=== PATIENT | female | born 1950 | race Caucasian/White ===

== ENCOUNTER → 2021-05-25 10:02 | Outpatient (BNVA) | payer MEDICARE, SELFPAY | PROVIDERS: Visit Provider Family Medicine | DX: N18.9 Chronic kidney disease, unspecified (principal); E78.5 Hyperlipidemia, unspecified; E55.9 Vitamin D deficiency, unspecified; R73.9 Hyperglycemia, unspecified | CPT/HCPCS: 80053; 80061; 82043; 82306; 83036; 85025 ==

== ENCOUNTER → 2021-11-09 11:01 | Outpatient (BNVA) | payer MEDICARE, SELFPAY | PROVIDERS: PCP Family Medicine; Referring Provider Family Medicine; Visit Provider Surgery | DX: Z86.010 Personal history of colon polyps (principal); F17.210 Nicotine dependence, cigarettes, uncomplicated | CPT/HCPCS: 99204 ==

== ENCOUNTER 2021-12-16 09:01 | Day surgery (SDC) | payer MEDICARE, SELFPAY ==
[2021-12-15 08:45] VITALS: BMI 34.7
--- NOTE | 2021-12-16 09:29 | P.HP_ITS ---
Same Day Surgery H&P Indication for Procedure/HPI DATE OF PROCEDURE: December 16, 2021 CHIEF COMPLAINT/INDICATIONFOR SURGICAL PROCEDURE: colonoscopy PREOP DIAGNOSIS: diagnostic PLANNED PROCEDURE: Operation Date: 12/16/21 10:45 Proposed Procedures p Colonoscopy 08293/z86.010(Not Applicable) - Kirt Garcia MD Medications/Allergies* Allergies/Adverse Reactions Allergy/AdvReac Type Severity Reaction Status Date / Time Sulfa (Sulfonamide Allergy ADR-Dizzine Verified 12/16/21 09:27 Antibiotics) ss Pertinent History/Comorbid Conditions* Medical History (Updated 12/14/21 @ 10:29 by Maureen Eric DO) Arthritis B/L knees, left ankle Chronic kidney disease Depression with anxiety Dyslipidemia Hyperglycemia Open left ankle fracture SOLIS (obstructive sleep apnea) Surgical History (Updated 11/09/21 @ 11:16 by Kirt Garcia MD) H/O hand surgery Right History of arthroplasty of left ankle History of colonoscopy Family History (Updated 05/25/21 @ 09:16 by Ayana Ellis LPN) Father Mother Diabetes Mother Cancer Father unknown type of cancer Social History Smoking and tobacco status: current every day smoker Second hand smoke exposure: Yes Alcohol intake: never Adopted: No Caregiver/support person: Yes Lives independently: Yes Household members: family Housing: Manufactured/Mobile home Marital status: / Number of children: 0 Highest education level completed: High School Graduate service: Yes status: Retired branch: [employer] Current occupational status: retired Pets and animals: No History of recent travel: Yes (from [place]) Out of state: Yes Sexually active: No Current gender identity: Female Special isaac needs: No Pertinent Exam Findings alert, oriented x 3 and regular rate & rhythm Recommendations Surgery/Procedure today Coding Level of Care Code Acute Customer Care Specialist for Melissa Rao
[2021-12-16 09:30] VITALS: BP 127/83; PULSE 83; RESP 18; TEMP 36.1; O2SAT 96
[2021-12-16] MEDS: sodium chloride 0.9% 1,000 ML 30 ML IV (09:38)
--- NOTE | 2021-12-16 10:13 | P.ANESASSM_ITS ---
Pre-Anesthetic Assessment Height/Weight: Height 1.68 m Weight 97.522 kg Temp Pulse Resp BP Pulse Ox 97.0 F L 83 18 127/83 96 12/16/21 09:30 12/16/21 09:30 12/16/21 09:30 12/16/21 09:30 12/16/21 09:30 Preop Diagnosis: diagnostic Operation Date: 12/16/21 10:45 Proposed Procedures p Colonoscopy 99353/z86.010(Not Applicable) - Kirt Garcia MD Familial anesthetic complications: none Was Beta Ming taken within 24 hours: N/A Was Clonidine taken within 24 hours: N/A Last intake: Intake Last Liquid Date 12/15/21 Last Liquid Time 18:30 Last Solid Date 12/14/21 Last Solid Time 17:30 Social Tobacco and No alcohol Exam alert, oriented x 3, clear to auscultation bilaterally and regular rate & rhythm Airway Submandibular: within normal limits Cervical ROM: within normal limits Mallampati: Class II Dentition: false Pulmonary Sleep Apnea Denies COPD Walks up hills and downhills 30 minutes a day, every day but Tuesday CV/HEM None reported Chronic Renal Insufficiency and None reported Hepatic None reported GI None reported Metabolic None reported Musc/skel None reported Neuropsych Anxiety and Depression Anesthetic Plan ASA status: 3 (71 year old female daily smoker with SOLIS, CKD, obesity, and SOLIS. ) Anesthesia: Anesthesia Evaluation, General and MAC Other: I discussed with the patient risks, goals, and benefits of MAC and general anesthesia. We discussed spectrum of MAC anesthesia including conversion to general as well as possibility of recall of intraoperative stimuli including discomfort/pain. Patient agrees to proceed with MAC. Risk of > 500 ml blood loss (7ml/kg in children): No Medications/Allergies Home Medications Medication Instructions Recorded Confirmed Last Taken Type atorvastatin 10 mg tablet 10 mg PO DAILY #90 tab 07/06/21 12/16/21 12/15/21 Rx cholecalciferol (vitamin D3) 125 125 mcg PO DAILY #90 cap 07/06/21 12/16/21 12/16/21 Rx mcg (5,000 unit) capsule citalopram 40 mg tablet 40 mg PO DAILY #90 tab 10/05/21 12/16/21 12/16/21 Rx clonazepam 1 mg tablet 1 mg PO TID PRN #90 tab 03/12/16/21 12/16/21 Rx ketoconazole 2 % shampoo 1 applic TOPICAL .every three days 10/05/21 12/16/21 12/15/21 Rx #120 ml peg 3350-electrolytes 236 240 ml PO Q10M #4000 ml 11/19/21 12/16/21 12/15/21 Rx gram-22.74 gram-6.74 gram-5.86 gram solution (Golytely) brexpiprazole 1 mg tablet (Rexulti) 1 mg PO DAILY #30 tab 12/14/21 12/16/21 12/16/21 Rx doxepin 50 mg capsule See Rx Instructions .ROUTE 12/15/21 12/16/21 12/15/21 Rx .COMPLEX #90 cap Allergies Allergy/AdvReac Type Severity Reaction Status Date / Time Sulfa (Sulfonamide Allergy ADR-Dizzine Verified 12/16/21 09:27 Antibiotics) ss Current Medications Generic Name Dose Route Start Last Admin Trade Name Freq PRN Reason Stop Dose Admin Sodium Chloride 1,000 mls @ 30 mls/hr 12/16/21 09:15 12/16/21 09:38 Sodium Chloride 0.9% IV 12/17/21 09:14 30 mls/hr .Q24H EDILIA Administration PFSH Anesthesia Medical History Arthritis B/L knees, left ankle Chronic kidney disease Depression with anxiety Dyslipidemia Hyperglycemia Open left ankle fracture SOLIS (obstructive sleep apnea) Surgical History H/O hand surgery Right History of arthroplasty of left ankle History of colonoscopy Family History Mother Diabetes Father Cancer unknown type of cancer Social History Smoking and tobacco status: current every day smoker Second hand smoke exposure: Yes Alcohol intake: never Adopted: No Caregiver/support person: Yes Lives independently: Yes Household members: family Housing: Manufactured/Mobile home Marital status: / Number of children: 0 Highest education level completed: High School Graduate service: Yes status: Retired branch: [employer] Current occupational status: retired Pets and animals: No History of recent travel: Yes (from [place]) Out of state: Yes Sexually active: No Current gender identity: Female Special isaac needs: No Data Anesthesia Cardiac Studies: No Data to Display
[2021-12-16 11:15] VITALS: BP 154/73; PULSE 65; RESP 16; TEMP 36.5; O2SAT 100
[2021-12-16 11:26] VITALS: BP 125/76; PULSE 64; RESP 17; TEMP 36.2; O2SAT 97
--- NOTE | 2021-12-16 14:23 | ANE.PACU2 ---
Inpatient post-anesthesia follow up: Airway intact: Yes Vital signs: Temperature 97.2 F Pulse Rate 64 Respiratory Rate 17 Blood Pressure 125/76 Pulse Oximetry 97 Oxygen Delivery Me thod Room Air Oxygen Flow Rate Fraction of Inspir ed Oxygen Hydration adequate: Yes Nausea and vomiting: No Pain level: 1 Mental status: Baseline
== END 2021-12-16 11:52 | disposition home or self-care (01) ==
PROVIDERS: PCP Family Medicine; Visit Provider Surgery
PROC: 0DJD8ZZ Inspection of Lower Intestinal Tract, Via Natural or Artificial Opening Endoscopic (ICD-10-PCS; CPT 45378; principal; 2021-12-16 10:45)
DX: Z86.010 Personal history of colon polyps (principal); M17.0 Bilateral primary osteoarthritis of knee; M19.072 Primary osteoarthritis, left ankle and foot; F41.8 Other specified anxiety disorders; E78.5 Hyperlipidemia, unspecified; G47.33 Obstructive sleep apnea (adult) (pediatric); N18.9 Chronic kidney disease, unspecified; F17.200 Nicotine dependence, unspecified, uncomplicated; K64.8 Other hemorrhoids
CPT/HCPCS: 45378; J2704; J7030

== ENCOUNTER → 2022-01-11 11:25 | Outpatient (BNVA) | payer MEDICAID, SELFPAY | PROVIDERS: PCP Family Medicine; Visit Provider Family Medicine | DX: N18.32 Chronic kidney disease, stage 3b (principal); F41.8 Other specified anxiety disorders; M17.0 Bilateral primary osteoarthritis of knee | CPT/HCPCS: 80048 ==

== ENCOUNTER 2022-03-06 14:00 | Emergency (ER) | payer MEDICARE, MEDICAID, SELFPAY ==
--- NOTE | 2022-03-06 14:07 | CTR_ITS ---
PROCEDURE INFORMATION: Exam: CT Abdomen And Pelvis Without Contrast Exam date and time: 03/06/2022 2:32 PM Age: 71 years old Clinical indication: Abdominal pain; Epigastric; Additional info: Epigastric abd pain TECHNIQUE: Imaging protocol: Computed tomography of the abdomen and pelvis without contrast. Radiation optimization: All CT scans at this facility use at least one of these dose optimization techniques: automated exposure control; mA and/or kV adjustment per patient size (includes targeted exams where dose is matched to clinical indication); or iterative reconstruction. COMPARISON: No relevant prior studies available. RADIATION DOSE METRICS: Total DLP (mGy-cm): 890.03 FINDINGS: Detailed evaluation of the abdominal and pelvic viscera is somewhat limited in the absence of intravenous contrast. Inferior thorax: Interstitial prominence and dependent airspace disease. Hiatal hernia. Liver: No focal hepatic mass. Gallbladder and bile ducts: Stone filled gallbladder. Pancreas: Mild soft tissue fullness of the pancreatic head, without focal mass. Postcontrast CT or ultrasound would be recommended for improved characterization. Spleen: Splenic granulomata. Adrenal glands: Unremarkable adrenals. Kidneys and ureters: Bilateral renal cysts, including a 3.8 cm left renal cyst. No hydronephrosis. Stomach and bowel: Fluid-filled stomach. Mild small bowel dilatation without a focal transition zone. Diverticula, without pericolonic inflammation. Appendix: No acute appendicitis. Intraperitoneal space: No significant free fluid. Vasculature: Ectasia of the abdominal aorta and vascular calcification. Lymph nodes: Subcentimeter lymph nodes. Urinary bladder: Normal bladder morphology. Minimal anterior wall thickening. Reproductive: 1.8 cm anterior wall uterine fibroid, which can be better evaluated with ultrasound if clinically indicated. Bones/joints: Schmorl's nodes and vertebral endplate irregularity. Grade 1 anterolisthesis of L4 on L5. Osteopenia and degenerative change. Soft tissues: Small fat containing umbilical hernia. CT/CT abdomen pelvis wo con [id number] IMPRESSION: 1. Stone filled gallbladder. 2. Mild soft tissue fullness of the pancreatic head, without focal mass. Postcontrast CT or ultrasound would be recommended for improved characterization. 3. Additional findings as described above. COMMENTS: Consistent with the [place] [employer]'s Incidental Findings Committee white paper (J Am Paola Radiol 2018): Any incidental renal lesion less than 1 cm or classified as too small to characterize, or any incidental cystic renal lesion characterized as simple-appearing, is likely benign. No follow-up imaging is recommended for these lesions per consensus recommendations based on imaging criteria.
--- NOTE | 2022-03-06 14:08 | ED_ITS ---
HPI - Abdominal Pain General: Chief Complaint: Abdominal Pain Stated Complaint: ABD PAIN Time Seen by Provider: 03/06/22 14:04 Source: patient and EMS Mode of arrival: EMS Limitations: no limitations History of Present Illness: 71-year-old female states she been having abdominal pain over the last week. States pain is been sharp in nature epigastric in region. States it seems to be worse with eating denies any history of any abdominal issues has never had any abdominal surgeries. States pain is currently a 4 out of 10 denies any diarrhea denies any cough. She denies any fever. Associated Symptoms: Denies chills, dysuria and fever(s) Review of Systems Const: Denies: fever(s), chills, body aches or change in appetite Eyes: Denies: blurry vision or eye discomfort ENMT: Denies: throat pain or dental pain Card: Denies: chest pain Resp: Denies: dyspnea GI: Reports: abdominal pain : Denies: dysuria Musc: Denies: neck pain or back pain Skin/Breast: Denies: rash Neuro: Denies: headache(s) Psych: Denies: depression Jovon/Lymph: Denies: easy bruising All/Imm: Denies: urticaria PFSH ED PFSH: Medical History Arthritis B/L knees, left ankle Chronic kidney disease Depression with anxiety Dyslipidemia Hyperglycemia Open left ankle fracture SOLIS (obstructive sleep apnea) Surgical History H/O hand surgery Right History of arthroplasty of left ankle History of colonoscopy (12/16/21) Family History Mother Diabetes Father Cancer unknown type of cancer Social History Smoking and tobacco status: current every day smoker Second hand smoke exposure: Yes Alcohol intake: never Adopted: No Caregiver/support person: Yes Lives independently: Yes Household members: family Housing: Manufactured/Mobile home Marital status: / Number of children: 0 Highest education level completed: High School Graduate service: Yes status: Retired branch: [employer] Current occupational status: retired Pets and animals: No History of recent travel: Yes (from [place]) Out of state: Yes Sexually active: No Current gender identity: Female Special isaac needs: No Physical Exam Const: COMMON NORMALS: no acute distress, patient oriented x3 and healthy appearing HENMT: COMMON NORMALS: normocephalic and atraumatic HEAD & SCALP: normocephalic and atraumatic Eye: COMMON NORMALS: Equal, round and reactive pupils present and EOMs intact bilaterally PUPIL: Yes Equal, round and reactive pupils present Neck/C-Spine: COMMON NORMALS: full ROM and supple Chest: COMMONS NORMALS: normal inspection of the chest and normal palpation of entire chest wall Resp: COMMON NORMALS: normal respiratory effort, No retractions, No use of accessory muscles and clear to auscultation bilaterally AUSCULTATION: clear to auscultation bilaterally Cardio: COMMON NORMALS: regular rate, regular rhythm and No murmurs present (Cardio) RATE: regular rate RHYTHM: regular rhythm GI: COMMON NORMALS: Normal to inspection, nondistended, normoactive bowel sounds present, Soft to palpation and no masses PALPATION: Yes Soft to palpation OTHER: epigastric tenderness Extremity: COMMON NORMALS: normal to inspection and full ROM Neuro: COMMON NORMALS: patient oriented x3, moves all extremities and no focal motor deficits Psych: COMMON NORMALS: mental status grossly normal, Normal thought process present and cooperative THOUGHT PROCESS: Normal thought process present Skin: COMMON NORMALS: no rashes or lesions noted and no wounds GENERAL SKIN EXAM: no rashes or lesions noted Course Vital Signs: Vital signs: Vital Signs Temperature 98.5 F 03/06/22 14:12 Pulse Rate 60 03/06/22 15:14 Respiratory Rate 16 03/06/22 15:14 Blood Pressure 166/75 03/06/22 15:14 Pulse Oximetry 96 03/06/22 15:14 Oxygen Delivery Me thod 03/06/22 15:14 MDM - Abdominal Pain Medical Decision Making Patient presents with abdominal pain likely biliary colic CT does show gallstones she has no signs of cholecystitis her pain is much improved here we will get her follow-up with surgeon for further evaluation of the gallstones I did inform her of the CT findings of her pancreas as well we will have her follow-up with her primary care doctor for further imaging she is stable here lab works normal she is return if worsening she understands agrees to plan. Lab Data : 03/06/22 14:27 03/06/22 14:27 Labs/Radiology: Radiology Impressions Abdomen/Pelvis CT 03/06/22 14:07 IMPRESSION: 1. Stone filled gallbladder. 2. Mild soft tissue fullness of the pancreatic head, without focal mass. Postcontrast CT or ultrasound would be recommended for improved characterization. 3. Additional findings as described above. COMMENTS: Consistent with the [place] [employer]'s Incidental Findings Committee white paper (J Am Paola Radiol 2018): Any incidental renal lesion less than 1 cm or classified as too small to characterize, or any incidental cystic renal lesion characterized as simple-appearing, is likely benign. No follow-up imaging is recommended for these lesions per consensus recommendations based on imaging criteria. Laboratory Results WBC 8.2 10^3/uL (4.0-10.0) 03/06/22 14:27 RBC 4.47 10^6/uL (4.1-5.3) 03/06/22 14:27 Hgb 13.6 g/dL (11.5-15.3) 03/06/22 14:27 Hct 41.7 % (37.0-47.0) 03/06/22 14:27 MCV 93.3 fl (81-99) 03/06/22 14:27 MCH 30.4 pg (28.0-34.0) 03/06/22 14:27 MCHC 32.6 g/dL (30.0-36.0) 03/06/22 14: RDW 12.7 % (12.1-15.1) 03/06/22 14:27 Plt Count 264 10^3/cmm (130-400) 03/06/22 14:27 MPV 9.9 fL (7.4-10.4) 03/06/22 14:27 Neut % (Auto) 48.7 % 03/06/22 14: Lymph % (Auto) 41.1 % 03/06/22 14:27 [place] % (Auto) 6.4 % 03/06/22 14:27 Eos % (Auto) 2.7 % 03/06/22 14:27 Baso % (Auto) 0.9 % 03/06/22 14:27 Neut # (Auto) 3.98 10^3/uL (1.8-7.7) 03/06/22 14:27 Lymph # (Auto) 3.4 10^3/uL (0.8-4.8) 03/06/22 14:27 [place] # (Auto) 0.5 10^3/uL (0.2-0.9) 03/06/22 14:27 Eos # (Auto) 0.2 10^3/uL (0.0-0.8) 03/06/22 14:27 Baso # (Auto) 0.1 10^3/uL (0.0-0.1) 03/06/22 14:27 Nucleated RBC % (auto) 0 % 03/06/22 14: Nucleated RBCs # 0.0 /100WBC 03/06/22 14:27 Sodium 139 mmol/L (136-145) 03/06/22 14:27 Potassium 4.0 mmol/L (3.5-5.1) 03/06/22 14:27 Chloride 103 mmol/L (98-107) 03/06/22 14: Carbon Dioxide 25 mmol/L (22-29) 03/06/22 14:27 Anion Gap 15.0 (5-19) 03/06/22 14:27 BUN 14 mg/dL (8-23) 03/06/22 14:27 Creatinine 1.4 mg/dL (0.5-0.9) H 03/06/22 14:27 GFR Calculation 37.2 mL/min (90-130) L 03/06/22 14:27 Glucose 114 mg/dL (65-115) 03/06/22 14:27 Calculated Osmolality 289 mOsm/kg (285-295) 03/06/22 14:27 Calcium 9.2 mg/dL (8.5-10.5) 03/06/22 14:27 Total Bilirubin 0.4 mg/dL (0.15-1.2) 03/06/22 14:27 AST 10 U/L (0-32) 03/06/22 14:27 ALT 10 U/L (0-33) 03/06/22 14:27 Alkaline Phosphatase 125 IU/L (35-105) H 03/06/22 14:27 Total Protein 6.9 g/dL (6.6-8.7) 03/06/22 14:27 Albumin 3.9 g/dL (3.5-5.2) 03/06/22 14:27 Globulin 3.0 g/dL (1.3-4.6) 03/06/22 14:27 Lipase 27 U/L (13-60) 03/06/22 14:27 Urine Color Yellow (Yellow) 03/06/22 14:22 Urine Appearance Clear (CLEAR) 03/06/22 14:22 Urine pH 5 (5-7) 03/06/22 14:22 Ur Specific [place] 1.005 (1.005-1.030) 03/06/22 14:22 Urine Protein Neg (Negative) 03/06/22 14:22 Urine Glucose (UA) Norm (Normal) 03/06/22 14:22 Urine Ketones Negative (Negative) 03/06/22 14:22 Urine Blood Neg (Negative) 03/06/22 14:22 Urine Nitrate Negative (Negative) 03/06/22 14:22 Urine Bilirubin Neg (Negative) 03/06/22 14:22 Urine Urobilinogen Norm mg/dL (Negative) 03/06/22 14:22 Ur Leukocyte Esterase Negative (Negative) 03/06/22 14:22 Discharge Plan Discharge Patient Disposition: Home Clinical Impression: Abdominal pain, Gallstones Condition: Stable Prescriptions: New hydrocodone-acetaminophen 5-325 mg tablet 1 tab PO Q6H PRN (Reason: pain) Qty: 14 0RF ondansetron 4 mg tablet,disintegrating 4 mg PO Q6H PRN (Reason: nausea and vomiting) Qty: 14 0RF No Action ketoconazole 2 % shampoo 1 applic topical .every three days Qty: 120 0RF cholecalciferol (vitamin D3) 125 mcg (5,000 unit) capsule 125 mcg PO DAILY Qty: 90 0RF Rexulti 1 mg tablet 1 mg PO DAILY Qty: 30 2RF diclofenac sodium 3 % gel 1 applic topical BID Qty: 100 1RF Rx Instructions: Topically to bilateral knees clonazepam 1 mg tablet 1 mg PO TID PRN (Reason: anxiety) Qty: 90 2RF Rx Instructions: Do not fill until 10/19/2021 peg 3350-electrolytes [Golytely] 236-22.74-6.74 -5.86 gram recon soln 240 ml PO Q10M Qty: 4000 0RF Rx Instructions: until fecal effluent is clear doxepin 50 mg capsule See Rx Instructions .ROUTE .COMPLEX Qty: 90 0RF Dose Instruction: TAKE 1 CAPSULE(50 MG) BY MOUTH EVERY NIGHT Rx Instructions: TAKE 1 CAPSULE(50 MG) BY MOUTH EVERY NIGHT atorvastatin 10 mg tablet See Rx Instructions .ROUTE .COMPLEX Qty: 90 0RF Dose Instruction: TAKE 1 TABLET(10 MG) BY MOUTH EVERY NIGHT Rx Instructions: TAKE 1 TABLET(10 MG) BY MOUTH EVERY NIGHT citalopram 40 mg tablet See Rx Instructions .ROUTE .COMPLEX Qty: 90 0RF Dose Instruction: TAKE 1 TABLET(40 MG) BY MOUTH DAILY Rx Instructions: TAKE 1 TABLET(40 MG) BY MOUTH DAILY Discharge Orders: Discharge ED (Routine); Ordered 03/06/22 Ordered By: Stacey Ortiz Referrals: Wicho Newman MD [Physician] - 1-3 days Maureen Eric DO [Primary Care Provider] - 1-3 days Discharge Diet: Advance as tolerated Discharge Activity: Resume usual activity Patient Instructions: Gallstones (ED), Abdominal Pain (ED), Opioid Safety Coding Level of Care Code ED Surveyor'S Assistant for Chg Fwd Exam Comprehensive
[2022-03-06 14:12] VITALS: BP 154/67; PULSE 63; RESP 18; TEMP 36.9; O2SAT 97; BMI 34.7
[2022-03-06] MEDS: sodium chloride 0.9% 1,000 ML 999 ML IV (14:22)
[2022-03-06] MEDS: ondansetron 2 mg/ML SDV 2 mL 4 MG IVP (14:22)
[2022-03-06 14:23] VITALS: RESP 18
[2022-03-06] MEDS: morphine 4 mg/mL SDV 1 mL IVP (14:23)
[2022-03-06 14:38] LABS: Basophils # 0.1 10^3/uL (0.0-0.1); Basophils % 0.9 %; Eosinophils # 0.2 10^3/uL (0.0-0.8); Eosinophils % 2.7 %; Hematocrit 41.7 % (37.0-47.0); Hemoglobin 13.6 g/dL (11.5-15.3); Lymphocytes # 3.4 10^3/uL (0.8-4.8); Lymphocytes % 41.1 %; Mean Corpuscular HGB Conc 32.6 g/dL (30.0-36.0); Mean Corpuscular Hemoglobin 30.4 pg (28.0-34.0); Mean Corpuscular Volume 93.3 fl (81-99); Mean Platelet Volume 9.9 fL (7.4-10.4); Monocytes # 0.5 10^3/uL (0.2-0.9); Monocytes % 6.4 %; Neutrophils # 3.98 10^3/uL (1.8-7.7); Neutrophils % 48.7 %; Nucleated Red Blood Cells % 0 %; Platelet Count 264 10^3/cmm (130-400); Red Blood Count 4.47 10^6/uL (4.1-5.3); Red Cell Distribution Width 12.7 % (12.1-15.1); White Blood Count 8.2 10^3/uL (4.0-10.0)
[2022-03-06 14:59] LABS: Add Urine Microscopic? NO; Charge for UA Resulting for Rev
[2022-03-06 15:05] LABS: Bilirubin Urine Neg (Negative); Blood Urine Neg (Negative); Glucose Urine UA Norm (Normal); Ketones Urine Negative (Negative); Leukocyte Esterase Urine Negative (Negative); Nitrate Urine Negative (Negative); Protein Urine Neg (Negative); Specific Gravity, Urine 1.005 (1.005-1.030); Urine Appearance Clear (CLEAR); Urine Color Yellow (Yellow); Urobilinogen Urine Norm (Negative); pH Urine 5 (5-7)
[2022-03-06 15:06] LABS: Alanine Aminotransferase 10 U/L (0-33); Albumin Level 3.9 g/dL (3.5-5.2); Alkaline Phosphatase 125 IU/L (35-105); Aspartate Amino Transferase 10 U/L (0-32); Blood Urea Nitrogen 14 mg/dL (8-23); Calcium 9.2 mg/dL (8.5-10.5); Carbon Dioxide 25 mmol/L (22-29); Chloride 103 mmol/L (98-107); Glomerular Filtration Rate 37.2 mL/min (90-130); Glucose 114 mg/dL (65-115); Lipase 27 U/L (13-60); Osmolality Calculated 289 mOsm/kg (285-295); Sodium 139 mmol/L (136-145); Total Bilirubin 0.4 mg/dL (0.15-1.2); Total Protein 6.9 g/dL (6.6-8.7)
[2022-03-06 15:14] VITALS: BP 166/75; PULSE 60; RESP 16; O2SAT 96
--- NOTE | 2022-03-09 10:20 | DCPLANNER ---
Addendum entered by Symone Justice 03/25/22 08:41: Patient had a follow up appointment scheduled with general surgery on 03.18.[address] Newman - patient did attend appointment. Original Note: manager of sustainability had message to schedule a follow up appointment for patient with general surgery. manager of sustainability sent patients information to the front office staff at general surgery. Clinic will call patient with appointment information.
== END 2022-03-06 15:41 | disposition home or self-care (01) ==
PROVIDERS: Emergency Provider Emergency Medicine; PCP Family Medicine
DX: K80.80 Other cholelithiasis without obstruction (principal); E78.5 Hyperlipidemia, unspecified; F17.210 Nicotine dependence, cigarettes, uncomplicated
CPT/HCPCS: 74176; 80053; 81003; 83690; 85025; 96361; 96374; 96375; 99285; J2270; J2405; J7030

== ENCOUNTER → 2022-03-18 14:50 | Outpatient (BNVA) | payer MEDICARE, MEDICAID, SELFPAY | PROVIDERS: PCP Family Medicine; Visit Provider Surgery | DX: R10.9 Unspecified abdominal pain (principal); Z87.19 Personal history of other diseases of the digestive system | CPT/HCPCS: 99213 ==

== ENCOUNTER 2022-03-19 13:31 | Emergency (ER) | payer MEDICARE, MEDICAID, SELFPAY ==
[2022-03-19 13:32] VITALS: PULSE 65; RESP 16; TEMP 37; O2SAT 95; BMI 33.9
--- NOTE | 2022-03-19 13:42 | W.ED.ABDPA2 ---
HPI - Abdominal Pain General: Chief Complaint: Abdominal Pain Stated Complaint: ABDOMINAL PAIN Time Seen by Provider: 03/19/22 13:40 History of Present Illness: Ms. Lynch is a 71-year-old lady with known history of cholelithiasis who presents to the ER for abdominal pain. Onset of symptoms was at about 10 AM, she ate eggs and cornejo as well as pancakes this morning and developed pain shortly thereafter. The past week she has had intermittent right upper quadrant pain that radiates through to the back. Intensity symptoms is moderate to severe. Course has persisted today. Denies signs of systemic illness. No other specific changes in health, exacerbating, or alleviating factors identified. Onset (ago): hour(s) Pain Consistency: constant Location: RUQ Severity: severe Quality: stabbing and aching Radiation: none Exacerbating factors: eating (ate pancakes, cornejo, egg) Context: other Review of Systems General: Reports: 10 or more systems reviewed and unremarkable except in HPI and below PFSH ED PFSH: Medical History Arthritis B/L knees, left ankle Chronic kidney disease Depression with anxiety Dyslipidemia Hyperglycemia Open left ankle fracture SOLIS (obstructive sleep apnea) Surgical History H/O hand surgery Right History of arthroplasty of left ankle History of colonoscopy (12/16/21) Family History Mother Diabetes Father Cancer unknown type of cancer Social History Smoking and tobacco status: current every day smoker (pack and a half ) Second hand smoke exposure: Yes Alcohol intake: never Adopted: No Caregiver/support person: Yes Lives independently: Yes Household members: family Housing: Manufactured/Mobile home Marital status: / Number of children: 0 Highest education level completed: High School Graduate service: Yes status: Retired branch: [employer] Current occupational status: retired Pets and animals: No History of recent travel: Yes (from [place]) Out of state: Yes Sexually active: No Current gender identity: Female Special isaac needs: No Physical Exam Const: COMMON NORMALS: alert GENERAL APPEARANCE: cooperative and well developed HENMT: COMMON NORMALS: normocephalic and atraumatic HEAD & SCALP: normocephalic and atraumatic Eye: COMMON NORMALS: conjunctivae normal CONJUNCTIVA: Yes conjunctivae normal SCLERA: sclerae normal Neck/C-Spine: COMMON NORMALS: supple GENERAL: Yes trachea midline Resp: COMMON NORMALS: normal respiratory effort and clear to auscultation bilaterally EFFORT & INSPECTION: Yes able to speak in complete sentences AUSCULTATION: clear to auscultation bilaterally Cardio: COMMON NORMALS: regular rate and regular rhythm RATE: regular rate RHYTHM: regular rhythm GI: COMMON NORMALS: Soft to palpation PALPATION: Yes Soft to palpation, Yes Tenderness to palpation present (GI) Details: RUQ and No Rigid due to palpation Extremity: GENERAL: Yes normal exam except as noted and No edema Neuro: COMMON NORMALS: moves all extremities SENSORIUM/ORIENTATION: Yes alert and No Orientation impaired Psych: COMMON NORMALS: mental status grossly normal and Normal thought process present THOUGHT PROCESS: Normal thought process present Course ED course: - Patient was seen and evaluated by me at bedside - Patient placed on cardiac monitors, IV access obtained - Initial evaluation notable for exam as above - Labs personally interpreted by me -Analgesia given - Labs notable for no leukocytosis. New baseline creatinine. Transaminases normal. - Imaging notable for cholelithiasis without cholecystitis - Upon serial reexamination after treatment the patient was improved - Based on patient history, evaluation, and testing as interpreted the most likely cause of the patient's condition is symptomatic cholelithiasis related to eating - The results of ED evaluation were discussed with the patient including prescriptions and/or symptomatic cares (if applicable) including appropriate and responsible use, followup plan, and return precautions. The patient verbalized understanding and felt safe for discharge. - Patient discharged in satisfactory condition. Note: Click bubbles or prepopulated morris in note writing are used for assistance with data collection and billing and are inherently more limited than narrative and other text portions of this note. Please use narrative for additional clinical history and defer to narrative/free test for any case of contradictory information. If information appears in only free text or click bubble it should be considered present or absent as reported. Please contact note commercial underwriter for clarifications of clinical information or contradictory information. MDM is a brief summary, contradictory or erroneous seeming information should be clarified and full note should be reviewed. Vital Signs: Vital signs: Vital Signs Temperature 98.6 F 08/26/22 13:32 Pulse Rate 63 03/19/22 16:30 Respiratory Rate 18 03/19/22 15:18 Blood Pressure 167/89 03/19/22 16:30 Pulse Oximetry 100 03/19/22 16:30 Oxygen Delivery Me thod 03/19/22 15:30 MDM - Abdominal Pain Medical Decision Making 71-year-old lady with known history of cholelithiasis presenting with abdominal pain after eating. No evidence of cholecystitis on ED evaluation. Satisfactory for continued outpatient management. Medical Records I reviewed the patient's medical records. Lab Data I reviewed the patient's lab results. : 03/19/22 13:55 03/19/22 13:55 Labs/Radiology: Radiology Impressions Abdomen Ultrasound 03/19/22 15:29 IMPRESSION: 1. Contracted gallbladder with cholelithiasis. Poorly visualized posterior gallbladder wall. No imaging signs of cholecystitis or obvious bile duct dilatation. 2. Poorly visualized pancreas. 3. Probable mild hepatic steatosis. No obvious cirrhosis or ascites. Laboratory Results WBC 8.0 10^3/uL (4.0-10.0) 03/19/22 13:55 RBC 3.99 10^6/uL (4.1-5.3) L 03/19/22 13:55 Hgb 12.2 g/dL (11.5-15.3) 03/19/22 13:55 Hct 38.6 % (37.0-47.0) 03/19/22 13:55 MCV 96.7 fl (81-99) 03/19/22 13:55 MCH 30.6 pg (28.0-34.0) 03/19/22 13:55 MCHC 31.6 g/dL (30.0-36.0) 03/19/22 13:55 RDW 12.8 % (12.1-15.1) 03/19/22 13:55 Plt Count 245 10^3/cmm (130-400) 03/19/22 13:55 MPV 9.5 fL (7.4-10.4) 03/19/22 13:55 Neut % (Auto) 46.3 % 03/19/22 13:55 Lymph % (Auto) 44.1 % 03/19/22 13:55 Levy % (Auto) 5.7 % 03/19/22 13:55 Eos % (Auto) 2.6 % 03/19/22 13:55 Baso % (Auto) 1.0 % 03/19/22 13:55 Neut # (Auto) 3.69 10^3/uL (1.8-7.7) 03/19/22 13:55 Lymph # (Auto) 3.5 10^3/uL (0.8-4.8) 03/19/22 13:55 Levy # (Auto) 0.5 10^3/uL (0.2-0.9) 03/19/22 13:55 Eos # (Auto) 0.2 10^3/uL (0.0-0.8) 03/19/22 13:55 Baso # (Auto) 0.1 10^3/uL (0.0-0.1) 03/19/22 13:55 Nucleated RBC % (auto) 0 % 03/19/22 13:55 Nucleated RBCs # 0.0 /100WBC 03/19/22 13:55 Sodium 136 mmol/L (136-145) 03/19/22 13:55 Potassium 3.8 mmol/L (3.5-5.1) 03/19/22 13:55 Chloride 105 mmol/L (98-107) 03/19/22 13:55 Carbon Dioxide 23 mmol/L (22-29) 03/19/22 13:55 Anion Gap 11.8 (5-19) 03/19/22 13:55 BUN 16 mg/dL (8-23) 03/19/22 13:55 Creatinine 1.2 mg/dL (0.5-0.9) H 03/19/22 13:55 GFR Calculation 44.4 mL/min (90-130) L 03/19/22 13:55 Glucose 147 mg/dL (65-115) H 03/19/22 13:55 Calculated Osmolality 286 mOsm/kg (285-295) 03/19/22 13:55 Calcium 8.3 mg/dL (8.5-10.5) L 03/19/22 13:55 Total Bilirubin 0.2 mg/dL (0.15-1.2) 03/19/22 13:55 AST 9 U/L (0-32) 03/19/22 13:55 ALT 8 U/L (0-33) 03/19/22 13:55 Alkaline Phosphatase 124 U/L (35-105) H 03/19/22 13:55 Total Protein 6.0 g/dL (6.6-8.7) L 03/19/22 13:55 Albumin 3.5 g/dL (3.5-5.2) 03/19/22 13:55 Globulin 2.5 g/dL (1.3-4.6) 03/19/22 13:55 Lipase 30 U/L (13-60) 03/19/22 13:55 Discharge Plan Discharge Patient Disposition: Home Clinical Impression: Symptomatic cholelithiasis Condition: Stable Prescriptions: New ondansetron 4 mg tablet,disintegrating 4 mg PO Q8H PRN (Reason: nausea and vomiting) Qty: 15 0RF oxycodone 5 mg tablet 5 mg PO Q4H PRN (Reason: pain) Qty: 14 0RF No Action ketoconazole 2 % shampoo 1 applic topical .every three days Qty: 120 0RF cholecalciferol (vitamin D3) 125 mcg (5,000 unit) capsule 125 mcg PO DAILY Qty: 90 0RF Rexulti 1 mg tablet 1 mg PO DAILY Qty: 30 2RF diclofenac sodium 3 % gel 1 applic topical BID Qty: 100 1RF Rx Instructions: Topically to bilateral knees clonazepam 1 mg tablet 1 mg PO TID PRN (Reason: anxiety) Qty: 90 2RF Rx Instructions: Do not fill until 10/19/2021 peg 3350-electrolytes [Golytely] 236-22.74-6.74 -5.86 gram recon soln 240 ml PO Q10M Qty: 4000 0RF Rx Instructions: until fecal effluent is clear doxepin 50 mg capsule See Rx Instructions .ROUTE .COMPLEX Qty: 90 0RF Dose Instruction: TAKE 1 CAPSULE(50 MG) BY MOUTH EVERY NIGHT Rx Instructions: TAKE 1 CAPSULE(50 MG) BY MOUTH EVERY NIGHT citalopram 40 mg tablet See Rx Instructions .ROUTE .COMPLEX Qty: 90 0RF Dose Instruction: TAKE 1 TABLET(40 MG) BY MOUTH DAILY Rx Instructions: TAKE 1 TABLET(40 MG) BY MOUTH DAILY atorvastatin 10 mg tablet See Rx Instructions .ROUTE .COMPLEX Qty: 90 0RF Dose Instruction: TAKE 1 TABLET(10 MG) BY MOUTH EVERY NIGHT Rx Instructions: TAKE 1 TABLET(10 MG) BY MOUTH EVERY NIGHT hydrocodone-acetaminophen 5-325 mg tablet 1 tab PO Q6H PRN (Reason: pain) Qty: 14 0RF ondansetron 4 mg tablet,disintegrating 4 mg PO Q6H PRN (Reason: nausea and vomiting) Qty: 14 0RF Discharge Orders: Discharge ED (Routine); Ordered 03/19/22 Ordered By: Jake Mims Referrals: Maureen Eric DO [Primary Care Provider] - Discharge Diet: Low Fat Discharge Activity: Increase activity as tolerated Patient Instructions: Biliary Colic (ED), Gallstones (ED), Opioid Safety Activity Restrictions/Additional Instructions: Thank you for visiting the emergency department. You were seen and evaluated for abdominal pain. The most likely cause of your symptoms is related to biliary colic or gallstones without evidence of infection of the gall bladder. Please continue to follow-up with Dr. Newman and your primary care provider. Return to the emergency department for worsening symptoms, fevers, nausea and vomiting, or anything else that you are concerned about a feel needs emergency department evaluation. Coding Level of Care Code ED Grocery Packer for Chg Fwd Exam Comprehensive
[2022-03-19 13:49] VITALS: BP 126/60
[2022-03-19 14:08] VITALS: RESP 18; O2SAT 98
[2022-03-19] MEDS: morphine 4 mg/mL SDV 1 mL IVP (14:08)
[2022-03-19 14:18] LABS: Basophils # 0.1 10^3/uL (0.0-0.1); Eosinophils # 0.2 10^3/uL (0.0-0.8); Eosinophils % 2.6 %; Hematocrit 38.6 % (37.0-47.0); Hemoglobin 12.2 g/dL (11.5-15.3); Lymphocytes # 3.5 10^3/uL (0.8-4.8); Lymphocytes % 44.1 %; Mean Corpuscular HGB Conc 31.6 g/dL (30.0-36.0); Mean Corpuscular Hemoglobin 30.6 pg (28.0-34.0); Mean Corpuscular Volume 96.7 fl (81-99); Mean Platelet Volume 9.5 fL (7.4-10.4); Monocytes # 0.5 10^3/uL (0.2-0.9); Monocytes % 5.7 %; Neutrophils # 3.69 10^3/uL (1.8-7.7); Neutrophils % 46.3 %; Nucleated Red Blood Cells % 0 %; Platelet Count 245 10^3/cmm (130-400); Red Blood Count 3.99 10^6/uL (4.1-5.3); Red Cell Distribution Width 12.8 % (12.1-15.1)
[2022-03-19 14:44] LABS: Alanine Aminotransferase 8 U/L (0-33); Albumin Level 3.5 g/dL (3.5-5.2); Alkaline Phosphatase 124 U/L (35-105); Anion Gap 11.8 (5-19); Aspartate Amino Transferase 9 U/L (0-32); Blood Urea Nitrogen 16 mg/dL (8-23); Calcium 8.3 mg/dL (8.5-10.5); Carbon Dioxide 23 mmol/L (22-29); Chloride 105 mmol/L (98-107); Globulin 2.5 g/dL (1.3-4.6); Glomerular Filtration Rate 44.4 mL/min (90-130); Glucose 147 mg/dL (65-115); Lipase 30 U/L (13-60); Osmolality Calculated 286 mOsm/kg (285-295); Potassium 3.8 mmol/L (3.5-5.1); Sodium 136 mmol/L (136-145); Total Bilirubin 0.2 mg/dL (0.15-1.2)
[2022-03-19 15:18] VITALS: BP 169/92; PULSE 59; RESP 18; O2SAT 98
--- NOTE | 2022-03-19 15:29 | USR_ITS ---
PROCEDURE INFORMATION: Exam: US Abdomen, Limited; Right Upper Quadrant Exam date and time: 03/19/2022 3:50 PM Age: 71 years old Clinical indication: Abdominal pain; Acute; Additional info: Ruq pain, HX gallstones, eval cholecystitis TECHNIQUE: Imaging protocol: Real time ultrasound of the abdomen with image documentation. Limited exam focused on the right upper quadrant. COMPARISON: CT abdomen pelvis wo con [id number] 03/06/2022 2:32 PM FINDINGS: Liver: Liver is normal in size with slightly echogenic parenchyma suggesting steatosis. No obvious cirrhosis or large mass or regional ascites. Gallbladder: Gallbladder is somewhat contracted limiting assessment. It contains several calculi with acoustic shadowing limiting visualization of posterior gallbladder wall. No obvious imaging signs of acute cholecystitis. Biliary ducts: No obvious intrahepatic bile duct dilatation. Proximal CBD measures about 6 mm. Distal CBD is obscured. Pancreas: Poorly visualized pancreas due to bowel gas. Midline pancreatic images show no obvious ductal dilatation. Right kidney: Right kidney is normal in size without hydronephrosis or large calculi. Right upper pole simple renal cyst measuring 2.7 cm. Aorta: No obvious aortic aneurysm however distal aorta is obscured by bowel gas. Inferior vena cava: IVC is patent. Portal venous: Main portal vein is patent with normal flow direction, measuring 8 mm in diameter. US/US abdomen limited [id number] IMPRESSION: 1. Contracted gallbladder with cholelithiasis. Poorly visualized posterior gallbladder wall. No imaging signs of cholecystitis or obvious bile duct dilatation. 2. Poorly visualized pancreas. 3. Probable mild hepatic steatosis. No obvious cirrhosis or ascites.
[2022-03-19 15:30] VITALS: BP 162/67; PULSE 58; O2SAT 97
[2022-03-19 16:30] VITALS: BP 167/89; PULSE 63; O2SAT 100
== END 2022-03-19 17:27 | disposition home or self-care (01) ==
PROVIDERS: Emergency Provider Emergency Medicine; PCP Family Medicine
DX: K80.20 Calculus of gallbladder without cholecystitis without obstruction (principal); E78.5 Hyperlipidemia, unspecified; F17.210 Nicotine dependence, cigarettes, uncomplicated
CPT/HCPCS: 76705; 80053; 83690; 85025; 96374; 99285; J2270

== ENCOUNTER 2022-04-14 12:55 | Outpatient (CLI) | payer MEDICARE, MEDICAID, SELFPAY ==
--- NOTE | 2022-04-14 13:00 | MR_ITS ---
WS: [id number] MRCP (MAGNETIC RESONANCE CHOLANGIOPANCREATOGRAPHY) HISTORY: Abd pain, Abnormal findings. COMPARISON: Ultrasound 03/19/[address] 03/06/2022. TECHNIQUE: Multiple sequences are performed to evaluate the intra and extrahepatic ducts. Gallbladder is minimally contracted around numerous stones in the gallbladder lumen. No wall thickeni ng or adjacent fluid is identified. There is no intrahepatic bile duct dilatation. Common bile duct i s normal at 5.5 mm. No intraluminal filling defect is identified. No signal abnormalities are noted a t the pancreatic head. No significant fullness. No pancreatic duct dilatation. The stomach is markedly distended with food products. Mild hepatic steatosis. No hepatic mass is iden tified. No adrenal mass. Bilateral renal cysts. There are multiple renal cysts. The largest in the LE FT kidney in the upper pole measures 3.8 x 4.2 cm. No hydronephrosis of either kidney. MR/MR MRCP [id number] IMPRESSION: 1. Cholelithiasis. Numerous stones fill the gallbladder lumen. Gallbladder lum en is slightly contracted around the stones. No evidence for acute cholecystiti s. 2. No choledocholithiasis. 3. No abnormality at the pancreatic head and no pancreatic duct dilatation. 4. Bilateral renal cysts.
== END 2022-04-14 12:56 | disposition home or self-care (01) ==
LOC: RAD 12:57
PROVIDERS: PCP Family Medicine; Visit Provider Surgery
DX: K80.20 Calculus of gallbladder without cholecystitis without obstruction (principal); N28.1 Cyst of kidney, acquired; K86.89 Other specified diseases of pancreas; Q45.3 Other congenital malformations of pancreas and pancreatic duct; K76.0 Fatty (change of) liver, not elsewhere classified; R10.9 Unspecified abdominal pain
CPT/HCPCS: 74181; 99213

== ENCOUNTER 2022-05-18 13:42 | Observation (INO) | payer MEDICARE, MEDICAID, SELFPAY ==
[2022-05-17 09:09] VITALS: BMI 34.7
[2022-05-18] VITALS (26 sets, daily range): BP systolic 101–183; BP diastolic 55–107; PULSE 46–73; RESP 14–20; TEMP 36.1–36.9; O2SAT 2–98; BMI 34.7
--- NOTE | 2022-05-18 08:38 | W.PM.OPSFHP ---
Same Day Surgery H&P Indication for Procedure/HPI DATE OF PROCEDURE: May 18, 2022 CHIEF COMPLAINT/INDICATIONFOR SURGICAL PROCEDURE: Abdominal pain PREOP DIAGNOSIS: Symptomatic cholelithiasis PLANNED PROCEDURE: Operation Date: 05/18/22 09:50 Proposed Procedures p Laparoscopic Cholecystectomy 74366,K80.20(Not Applicable) - Wicho Newman MD 03/18/2022 This is a pleasant 71 years old female patient presents to my practice with history of abdominal pain.? Patient describes being sharp at the right upper quadrant and gets better by laying down and gets worse with fatty food, reports no nausea and she also complains of left-sided abdominal pain particularly left lower part.? Recently undergone a CT of the abdomen pelvis in the ER and did show 1. Stone filled gallbladder. 2. Mild soft tissue fullness of the pancreatic head, without focal mass. Postcontrast CT or ultrasound would be recommended for improved characterization. No available ultrasound Follow-up clinic visit 04/14/2022 Patient comes today for follow-up and she did undergo an ultrasound of the liver and gallbladder that did show 1. Contracted gallbladder with cholelithiasis. Poorly visualized posterior gallbladder wall. No imaging signs of cholecystitis or obvious bile duct dilatation. 2. Poorly visualized pancreas. 3. Probable mild hepatic steatosis. No obvious cirrhosis or ascites. Unfortunately till now we do not have a distinct refined anatomy of the pancreatic head, she continues to complain of right upper quadrant abdominal pain and in the presence of previously cholelithiasis she would be an appropriate candidate for gallbladder surgery yet we will require to have dedicated imaging studies of the pancreas whether a CT scan pancreas protocol or an MRCP. The time of the clinical encounter the MRCP was not done yet fortunately the patient had the results came back really sooner than I would have expected: 1.? Cholelithiasis. Numerous stones fill the gallbladder lumen. Gallbladder lumen is slightly contracted around the stones. No evidence for acute cholecystitis. 2.? No choledocholithiasis. 3.? No abnormality at the pancreatic head and no pancreatic duct dilatation. 4.? Bilateral renal cysts. Interim history 05/18/2022 Patient comes today for laparoscopic cholecystectomy ROS All systems have been reviewed negative except as for the above or per problem list. Medications/Allergies* Home Medications Medication Instructions Recorded Confirmed Type atorvastatin 10 mg tablet 10 mg PO BEDTIME 05/18/22 05/18/22 History citalopram 40 mg tablet 40 mg PO DAILY 05/18/22 05/18/22 History doxepin 50 mg capsule 50 mg PO DAILY 05/18/22 05/18/22 History Allergies/Adverse Reactions Allergy/AdvReac Type Severity Reaction Status Date / Time Sulfa (Sulfonamide Allergy ADR-Dizzine Verified 05/18/22 08:40 Antibiotics) ss Pertinent History/Comorbid Conditions* Medical History (Updated 05/10/22 @ 10:51 by Jose Wheatley DO) Arthritis B/L knees, left ankle Chronic kidney disease Depression with anxiety Dyslipidemia Hx of gallstones Hyperglycemia Open left ankle fracture SOLIS (obstructive sleep apnea) Surgical History (Updated 12/16/21 @ 11:16 by Kirt Garcia MD) H/O hand surgery Right History of arthroplasty of left ankle History of colonoscopy (12/16/21) Family History (Updated 05/25/21 @ 09:16 by Ayana Ellis LPN) Father Mother Diabetes Mother Cancer Father unknown type of cancer Social History Smoking and tobacco status: current every day smoker (pack and a half ) Second hand smoke exposure: Yes Alcohol intake: never Adopted: No Caregiver/support person: Yes Lives independently: Yes Household members: family Housing: Manufactured/Mobile home Marital status: / Number of children: 0 Highest education level completed: High School Graduate service: Yes status: Retired branch: [employer] Current occupational status: retired Pets and animals: No History of recent travel: Yes (from [place]) Out of state: Yes Sexually active: No Current gender identity: Female Special isaac needs: No Pertinent Exam Findings alert, oriented x 3, regular rate & rhythm and procedure specific exam findings (Abdominal exam nontender nondistended soft, obese) Recommendations Surgery/Procedure today (Laparoscopic cholecystectomy possible open) Other Plans: Plan of care; After thorough history physical examination and reviewing the chart and images with my personal intrepreatation.I counseled the patient for laparoscopic cholecystectomy possible open, indications risks including but not limited injury to the common bile duct and/or other viscera,that may require potential future surgical interventions including but not limited to ERCP and or? laparatomy that may include Hepatobiliary surgery.Benefits and alternatives all discussed with the patient, and patient did agree to proceed accordingly. All questions have been answered and all concerns have been addressed to patient's satisfaction. Rationale was carefully and clearly discussed with the patient. Coding Level of Care Code Acute Luggage Attendant for Melissa Rao
--- NOTE | 2022-05-18 08:40 | ECG_ITS ---
[facility] Test Date: 2022-05-18 Pat Name: Mallory Lynch Department: Room: Gender: Female Wool Sacker: : 1950 Requested By: Pieter Velez Order Number: [id number] Adam MD: Andrew Lopez M.D. Measurements Intervals [place] Rate: 57 P: 49 IN: 151 QRS: 17 QRSD: 84 T: 31 QT: 429 QTc: 420 Interpretive Statements SINUS BRADYCARDIA No previous ECG available for comparison Electronically Signed On 05-19-2022 0:23:54 CDT by Andrew Lopez M.D. [id number]
[2022-05-18 08:43] LABS: Basophils # 0.1 10^3/uL (0.0-0.1); Eosinophils # 0.3 10^3/uL (0.0-0.8); Eosinophils % 3.1 %; Hematocrit 39.8 % (37.0-47.0); Hemoglobin 13.5 g/dL (11.5-15.3); Lymphocytes # 3.1 10^3/uL (0.8-4.8); Lymphocytes % 35.9 %; Mean Corpuscular HGB Conc 33.9 g/dL (30.0-36.0); Mean Corpuscular Hemoglobin 31.3 pg (28.0-34.0); Mean Corpuscular Volume 92.1 fl (81-99); Mean Platelet Volume 9.7 fL (7.4-10.4); Monocytes # 0.6 10^3/uL (0.2-0.9); Monocytes % 6.4 %; Neutrophils # 4.65 10^3/uL (1.8-7.7); Neutrophils % 53.1 %; Nucleated Red Blood Cells % 0 %; Platelet Count 267 10^3/cmm (130-400); Red Blood Count 4.32 10^6/uL (4.1-5.3); White Blood Count 8.8 10^3/uL (4.0-10.0)
[2022-05-18] MEDS: heparin 5,000 unit/mL INJ 1 mL 3000 UNIT SUBCUT (09:01)
[2022-05-18] MEDS: acetaminophen 1,000 MG/100 ML PIGGYBACK 400 MG IV (09:02)
--- NOTE | 2022-05-18 09:04 | P.ANESASSM_ITS ---
Pre-Anesthetic Assessment Height/Weight: Height 1.68 m Weight 97.522 kg Temp Pulse Resp BP Pulse Ox O2 Del Method 98 F 66 16 144/107 96 05/18/22 08:21 05/18/22 08:21 05/18/22 08:21 05/18/22 08:21 05/18/22 08:21 05/18/22 08:21 Preop Diagnosis: Symptomatic cholelithiasis Operation Date: 05/18/22 09:50 Proposed Procedures p Laparoscopic Cholecystectomy 71606,K80.20(Not Applicable) - Wicho Newman MD Familial anesthetic complications: none Was Beta Ming taken within 24 hours: N/A Was Clonidine taken within 24 hours: N/A Last intake: Intake Last Liquid Date 05/17/22 Last Liquid Time 16:00 Last Solid Date 05/17/22 Last Solid Time 19:00 Social Tobacco and No alcohol Exam alert, oriented x 3 and regular rate & rhythm Airway Submandibular: within normal limits Cervical ROM: within normal limits Mallampati: Class II Dentition: false Pulmonary Chronic Obstructive Pulmonary Disease and Sleep Apnea Chronic Renal Failure Metabolic Hyperlipidemia and Morbid Obesity Neuropsych Anxiety and Depression Anesthetic Plan ASA status: 3 Anesthesia: General Medications/Allergies Home Medications Medication Instructions Recorded Confirmed Last Taken Type cholecalciferol (vitamin D3) 125 125 mcg PO DAILY #90 caps 07/06/21 05/18/22 05/17/22 Rx mcg (5,000 unit) capsule brexpiprazole 1 mg tablet (Rexulti) 1 mg PO DAILY #30 tabs 04/13/22 05/18/22 05/17/22 Rx clonazepam 1 mg tablet 1 mg PO TID PRN anxiety #90 tabs 04/13/22 05/17/22 Unknown Rx diclofenac sodium 3 % topical gel 1 applic topical BID #100 grams 04/13/22 05/18/22 05/17/22 Rx doxycycline hyclate 100 mg tablet 100 mg PO BID 10 days #20 tabs 05/10/22 05/18/22 05/17/22 Rx atorvastatin 10 mg tablet 10 mg PO BEDTIME 05/18/22 05/18/22 05/17/22 History citalopram 40 mg tablet 40 mg PO DAILY 05/18/22 05/18/22 05/17/22 History doxepin 50 mg capsule 50 mg PO DAILY 05/18/22 05/18/2205/17/22 History Allergies Allergy/AdvReac Type Severity Reaction Status Date / Time Sulfa (Sulfonamide Allergy ADR-Dizzine Verified 05/18/22 08:40 Antibiotics) [facility] Anesthesia Medical History Arthritis B/L knees, left ankle Chronic kidney disease Depression with anxiety Dyslipidemia Hx of gallstones Hyperglycemia Open left ankle fracture SOLIS (obstructive sleep apnea) Surgical History H/O hand surgery Right History of arthroplasty of left ankle History of colonoscopy (12/16/21) Family History Mother Diabetes Father Cancer unknown type of cancer Social History Smoking and tobacco status: current every day smoker (pack and a half ) Second hand smoke exposure: Yes Alcohol intake: never Adopted: No Caregiver/support person: Yes Lives independently: Yes Household members: family Housing: Manufactured/Mobile home Marital status: / Number of children: 0 Highest education level completed: High School Graduate service: Yes status: Retired branch: [employer] Current occupational status: retired Pets and animals: No History of recent travel: Yes (from [place]) Out of state: Yes Sexually active: No Current gender identity: Female Special isaac needs: No Data Anesthesia : 05/18/22 08:32 05/18/22 08:32 Short CBC 05/18/22 Range/Units 08:32 WBC 8.8 (4.0-10.0) 10^3/uL Hgb 13.5 (11.5-15.3) g/dL Hct 39.8 (37.0-47.0) % MCV 92.1 (81-99) fl Plt Count 267 (130-400) 10^3/cmm Neut % (Auto) 53.1 % Neut # (Auto) 4.65 (1.8-7.7) 10^3/uL BMP 05/18/22 08:32 Sodium Cancelled Potassium Cancelled Chloride Cancelled Carbon Dioxide Cancelled BUN Cancelled Creatinine Cancelled Glucose Cancelled Calcium Cancelled Cardiac Studies: No Data to Display
[2022-05-18] MEDS: sodium chloride 0.9% 1,000 ML 30 ML IV (09:30)
[2022-05-18] MEDS: ipratropium-albuterol 3 mL Neb INHALATION (09:49)
[2022-05-18 09:51] LABS: Anion Gap 13.5 (5-19); Blood Urea Nitrogen 17 mg/dL (8-23); Carbon Dioxide 25 mmol/L (22-29); Chloride 100 mmol/L (98-107); Glomerular Filtration Rate 44.4 mL/min (90-130); Glucose 91 mg/dL (65-115); Osmolality Calculated 279 mOsm/kg (285-295); Potassium 4.5 mmol/L (3.5-5.1); Sodium 134 mmol/L (136-145)
[2022-05-18] MEDS: ampicillin-sulbactam 3 GM in sodium chloride 0.9% (plus) 50 ML IV (10:32)
--- NOTE | 2022-05-18 12:31 | P.OP_ITS ---
Operative Report Date of procedure: May 18, 2022 Pre-op diagnosis: Preop Diagnosis Symptomatic cholelithiasis Post-op diagnosis: Chronic calculus cholecystitis and fatty liver Procedure done: Laparoscopic cholecystectomy Implants: Surgicel and Surgi-Bakari Specimens removed/disposition: Gallbladder and contents Surgeon: Wicho Newman MD Switch Tender: Surgical techcrissy Espitia and Gabbi Circulating nurses Samaria and Lesley Anesthesia: General (HEMMING AND TACKING MACHINE OPERATOR Donnie and Bandar) Estimated blood loss (mL): 200 IV fluids (mL): 1,000 Procedure: Patient was identified in the holding area and taken back to the operative suite, placed in supine position intubated by anesthesia . Time-out was done verifying the patient's name/date of /planned procedure and destination after the procedure, all were in agreement. SCDs confirmed to be functioning, preoperative antibiotics administered per protocol, and beta nasra protocol was confirmed. Patient was appropriately secured to the table, footboard was applied to the OR table, before prep and drape anesthesia was asked to tilt the table back and forth to make sure that the patient is appropriately secured and she was. Prep and drape of the abdomen was done under the usual sterile technique, followed by that supraumbilical skin incision,skin incision was done by a 11 blade knife, and stay sutures were applied to the fascia and Cohen trocar technique was used to enter the abdominal without injuring any abdominal viscera, started by low flow gas insufflation followed by a high flow, started with a 10 mm laparoscope and under direct vision there was no evidence of any injuries, the scope then switched to a 30? ,10 millimeter scope and under direct visualization 5 millimeter trocar was inserted in the epigastric region followed by two 5 mm trocars were inserted in the right upper quadrant that was done after injection of local lidocaine 2% at all incision sites. Gallbladder showed chronic cholecystitis and Fatty Liver. Extensive adhesions between the gallbladder and the junction between the first and second part of the duodenum Patient was then positioned in the head up and tilted to the left. Ratcheted forceps were introduced into the lateral most 5mm port and was applied unto the fundus of the gallbladder cephalad and using Bullet forceps the infundibulum of the gallbladder was retracted laterally. Sharp dissection was obtained to dissect the gallbladder from the first and second part of the duodenum junction there is direct visualization. Without violation of the integrity of the duodenum. Using [place] forceps then L-hook cautery to dissect the peritoneum overlying the Calot's triangle which was then opened medially and laterally until the cystic duct and the cystic artery were skeletonized. Dissection was carried along the body of the gallbladder and after ensuring critical view of safety was identfied. Cystic duct and cystic artery where seen connected to the gallbladder. Clips were applied on the cystic duct towards the common bile duct 1 towards the gallbladder then divided is in sharp scissors, 2 clips were then applied onto the cystic artery and 1 towards the gallbladder and divided by sharp scissors. Additional traversing vessel was clipped and divided. N Dissection was then carried along of the gallbladder from the gallbladder fossa using cautery as well as sharp dissection with heat energy.noticed that the gallbladder shows intrahepatic component The gallbladder then was dissected out from the gallbladder fossa totally , cholecystectomy was then achieved and was placed in an Endo Catch bag and then retrieved from the Cohen trocar site under direct visualization using a 5 mm 30? scope through the epigastric trocar, specimen was then passed to the circulating nurse to go for permanent pathology,irrigation and hemostasis was done to the gallbladder fossa after hemostasis was secured using Surgi-Bakari and Surgicel in addition to multiple clips at the gallbladder fossa., final survey laparoscopy was done that showed no injuries. Suction irrigation was obtained The supraumbilical fascial defect was then closed using interrupted number one PDS sutures using a fascial closure device ;Galileo Damian under direct visualization following that Gas was allowed to deflate,Trocars were then taken out under direct vision there was no evidence of bleeding. Specimen was passed to the circulating nurse for permanent pathology. No drains were placed and the supraumbilical incision as well as all trocar sites were closed by skin ruiz to approximate the skin edges of the incisions ,dressing was applied in the form of surical glue and the patient patient got extubated and was taken to recovery area in a stable condition. Count of sponges,needles and instruments were completed at the end of the procedure I was present for the whole entire procedure.
[2022-05-18] MEDS: fentaNYL 50 mcg/mL INJ 2mL IVP (13:12)
[2022-05-18] MEDS: sodium chloride 0.9% 1,000 ML 50 ML IV (14:37)
[2022-05-18] MEDS: famotidine 20 mg/2 mL INJ IVP (14:37)
[2022-05-18] MEDS: HYDROcodone-acetaminophen 5-325 mg Tablet 1 TAB PO (15:34)
[2022-05-18] MEDS: morphine 4 mg/mL SDV 1 mL 2 MG IVP (16:26)
[2022-05-18] MEDS: CLONazepam 1 mg Tablet PO (16:26)
--- NOTE | 2022-05-18 17:06 | ANE.PACU2 ---
Inpatient post-anesthesia follow up: Airway intact: Yes Vital signs: Temperature 97 F Pulse Rate 62 Respiratory Rate 16 Blood Pressure 152/102 Pulse Oximetry 98 Oxygen Delivery Me thod Room Air Oxygen Flow Rate 2 Fraction of Inspir ed Oxygen Hydration adequate: Yes Nausea and vomiting: No Pain level: 3 Mental status: Baseline
[2022-05-19] MEDS: HYDROcodone-acetaminophen 5-325 mg Tablet 1 TAB PO ×2 (00:16→06:40)
[2022-05-19] MEDS: CLONazepam 1 mg Tablet PO (00:16)
[2022-05-19] MEDS: famotidine 20 mg/2 mL INJ IVP (00:26)
[2022-05-19 03:39] LABS: Hematocrit 34.6 % (37.0-47.0); Hemoglobin 11.5 g/dL (11.5-15.3)
[2022-05-19 04:03] VITALS: BP 165/78; PULSE 68; RESP 17; TEMP 36.9; O2SAT 93
[2022-05-19 07:28] VITALS: BP 166/91; PULSE 70; RESP 18; TEMP 36.6; O2SAT 95
[2022-05-19 07:44] LABS: Add On to Lab Order(s) Added
[2022-05-19 08:00] VITALS: PULSE 70; RESP 18; O2SAT 95
--- NOTE | 2022-05-19 09:14 | PC.CHAP ---
Pastoral Care Encounter/Spiritual Assessment Type of Contact [] Declined awning hanger helper visit [] Patient/Family/Request visit [] Outpatient visit [] Follow-up visit [] Physician referral [] Code/Alert [x] Routine visit [] Staff referral [] Actively dying [] Patient sleeping [] Family support [] [] Out of room [] Palliative care [] [] Receiving care in room [] Pre-surgical visit [] Trauma [] Long length of stay [] ICU visit [] Other: Relational/Emotional Strength [] Patient feels connected with others/family/visitors/staff [] Distress [] Loneliness/isolation [] Abandonment Spirituality of Patient [x] Person of Katja [x] Attends Latter-Day of their [place] [x] Believes in Prayer [] Reads Bible or Confucianist materials [] There are Spiritual issues to be addressed Supervisor Vacuum Metalizing Interventions [x] Prayer [x] Active listening [x] Non-anxious presence [x] Spiritual/emotional support [] Crisis/trauma care [] Spiritual counseling [] Bereavement support [] Provided bereavement packet [] Provided Bible/devotional materials [] Provided toy/stuffed animal, coloring book to patient or family member [] Provided Communion [] Anointing/[place] [] Salvation [x] Completed spiritual assessment [] Other: Impact on Illness or Injury [] Angry [] Fearful [] Anxious [] Often cries [] Exhaustion [] Unable to work [] Unable to attend mosque [] Unable to walk/stand [] Unable to read [] Unable to drive [] Unable to eat/drink [] Unable to sleep [] Unable to be with family [] Patient intubated [] Other: Summary Pt. states she is a person of [place], raised [place] Her mother was a multimedia teacher. She has been fighting cancer. Recently she had fallen and she stated the doctor told her it was a miracle she lived. She was on the floor approximately 12 hours before being found by family. She does have family that checks on her often. Time spent with patient 15m
[2022-05-19 09:49] LABS: Anion Gap 12.8 (5-19); Blood Urea Nitrogen 14 mg/dL (8-23); Carbon Dioxide 23 mmol/L (22-29); Chloride 103 mmol/L (98-107); Glomerular Filtration Rate 54.8 mL/min (90-130); Potassium 4.8 mmol/L (3.5-5.1); Sodium 134 mmol/L (136-145)
[2022-05-19 09:50] LABS: Alanine Aminotransferase 46 U/L (0-33); Aspartate Amino Transferase 50 U/L (0-32); Calcium 9.2 mg/dL (8.5-10.5); Glucose 127 mg/dL (65-115); Osmolality Calculated 280 mOsm/kg (285-295); Total Bilirubin 0.4 mg/dL (0.15-1.2)
[2022-05-19 09:51] LABS: Albumin Level 3.5 g/dL (3.5-5.2); Alkaline Phosphatase 116 U/L (35-105); Globulin 2.5 g/dL (1.3-4.6)
--- NOTE | 2022-05-19 09:51 | P.SS_ITS ---
Short Stay Summary Providers Date of Admit/Discharge: 05/22/22 Attending Provider: Wicho Newman MD Primary Care Provider: Maureen Eric DO Chief Complaint: calculus of gallbladder w/o cholecystits w/o obstr HPI History of Present Illness Ms. Mallory Lynch is a 71 year old female undergone uneventful laparoscopic cholecystectomy. Yet there was a component of fatty liver and some bleeding was encountered from the gallbladder fossa bed which required hemostasis using Surgicel and other local products. Because of the patient's comorbidities I elected to have the patient for observation overnight in the hospital with repeat blood work in the morning. Review of Systems General: Reports: 10 or more systems reviewed and unremarkable except in HPI and below Home Meds/Allergies Home Medications and Allergies Home Medications Medication Instructions Recorded Confirmed Type atorvastatin 10 mg tablet 10 mg PO BEDTIME 05/18/22 05/18/22 History citalopram 40 mg tablet 40 mg PO DAILY 05/18/22 05/18/22 History doxepin 50 mg capsule 50 mg PO DAILY 05/18/22 05/18/22 History Allergies Allergy/AdvReac Type Severity Reaction Status Date / Time Sulfa (Sulfonamide Allergy ADR-Dizzine Verified 05/18/22 08:40 Antibiotics) ss PFSH Acute PFSH: Medical History Arthritis B/L knees, left ankle Chronic kidney disease Depression with anxiety Dyslipidemia Hepatic steatosis Hx of gallstones Hyperglycemia Open left ankle fracture SOLIS (obstructive sleep apnea) Surgical History H/O hand surgery Right History of arthroplasty of left ankle History of colonoscopy (12/16/21) Family History Mother Diabetes Father Cancer unknown type of cancer Social History Smoking and tobacco status: current every day smoker (pack and a half ) Second hand smoke exposure: Yes Alcohol intake: never Adopted: No Caregiver/support person: Yes Lives independently: Yes Household members: family Housing: Manufactured/Mobile home Marital status: / Number of children: 0 Highest education level completed: High School Graduate service: Yes status: Retired branch: [employer] Current occupational status: retired Pets and animals: No History of recent travel: Yes (from [place]) Out of state: Yes Sexually active: No Current gender identity: Female Special isaac needs: No Vitals/I&O/Wt Last Vital Signs Temp 97.9 F 05/19/22 07:28 Pulse 70 05/19/22 08:00 Resp 18 05/19/22 08:00 BP 166/91 05/19/22 07:28 Pulse Ox 95 05/19/22 08:00 O2 Del Method 05/19/22 08:00 O2 Flow Rate 2 05/18/22 13:40 05/18/22 05/19/22 05/19/22 22:59 06:59 14:59 Intake Total 198 / 1348 720 / 2068 600 / 600 Output Total 1 / 151 1200 / 1351 Balance 197 / 1197 -480 / 717 600 / 600 Weight last 48 hrs Weight 215 lb Physical Exam Narrative: Patient is conscious alert oriented X3 No apparent distress BMI 35 Head and neck examination PERRLA no masses no cervical lymphadenopathy no jaundice Cardiac examination audible S1-S2 no murmurs no gallops no arrhythmias Chest is clear bilateral,abscence of Rhonchi or wheezes,no surgical emphysema Abdomen nontender nondistended soft no organomegaly guarding or rigidity/no signs of peritonitis. Dressing in place without complication Extremities no cyanosis no clubbing no edema Hospital Course Admission Diagnoses Chronic calculus cholecystitis Hospital Course Patient had smooth postoperative course. Maintained to have stable vital signs and adequate urine output. Tolerated p.o. intake and was ambulatory without assistance. Repeat labs were appropriate. Patient met the appropriate and safe criteria to discharge home. Discharge Summary Patient was educated about pain medication and limitation of lifting postoperatively. The plan to follow-up with me as an outpatient. SSS Data Data Completed and Pending: Pending at discharge Category Date Time Status Bilirubin Direct Timed Lab 05/19/22 03:10 Results CMP [Comprehensiv e Metabolic Panel] AM LABS Lab 05/18/22 04:00 Results Hemoglobin and He matocrit AM LABS Lab 05/20/22 04:00 Uncollected Hemoglobin and He matocrit AM LABS Lab 05/21/22 04:00 Uncollected Pathology: Surgic al [PTH] Routine Pth 05/18/22 11:10 Received Procedures Performed: Operative Report Date of procedure: May 18, 2022 Pre-op diagnosis: Preop Diagnosis ? Symptomatic cholelithiasis? Post-op diagnosis: Chronic calculus cholecystitis and fatty liver Procedure done: Laparoscopic cholecystectomy Implants: Surgicel and Surgi-Bakari Specimens removed/disposition: Gallbladder and contents Surgeon: Wicho Newman MD Route Salesman And Driver: Surgical techcrissy Espitia and Gabbi Circulating nurses Samaria and Lesley Anesthesia: General (GARMENT MANUFACTURING SUPERVISOR Donnie and Bandar) Estimated blood loss (mL): 200 IV fluids (mL): 1,000 Procedure: Patient was identified in the holding area and taken back to the operative suite, placed in supine position intubated by anesthesia . Time-out was done verifying the patient's name/date of /planned procedure? and destination after the procedure, all were in agreement.? SCDs confirmed to be functioning, preoperative antibiotics administered per protocol, and beta nasra protocol was confirmed. Patient was appropriately secured to the table, footboard was applied to the OR table, before prep and drape anesthesia was asked to tilt the table back and forth to make sure that the patient is appropriately secured and she was. Prep and drape of the abdomen was done under the usual sterile technique, followed by that supraumbilical skin incision,skin incision was done by a 11 blade knife, and stay sutures were applied to the fascia and Cohen trocar technique was used to enter the abdominal without injuring any abdominal viscera, started by low flow gas insufflation followed by a high flow, started with a 10 mm laparoscope and under direct vision there was no evidence of any injuries, the scope then switched to a 30? ,10 millimeter scope and under direct visualization 5 millimeter trocar was inserted in the epigastric region followe d by two 5 mm trocars were inserted in the right upper quadrant that was done after injection of local lidocaine 2% at all incision sites.? Gallbladder showed chronic cholecystitis and Fatty Liver. Extensive adhesions between the gallbladder and the junction between the first and second part of the duodenum Patient was then positioned in the head up and tilted to the left. Ratcheted forceps were introduced into the lateral most 5mm port and was applied unto the fundus of the gallbladder cephalad and using Bullet forceps the infundibulum of the gallbladder was retracted laterally.? Sharp dissection was obtained to dissect the gallbladder from the first and second part of the duodenum junction there is direct visualization.? Without violation of the integrity of the duodenum. Using [place] forceps then L-hook cautery? to dissect the peritoneum overlying the Calot's triangle which was then opened medially and laterally until the cystic duct and the cystic artery were skeletonized.? Dissection was carried along the body of the gallbladder and after ensuring critical view of safety was identfied. Cystic duct and cystic artery where seen connected to the gallbladder. Clips were applied on the cystic duct towards the common bile duct 1 towards the gallbladder then divided is in sharp scissors, 2 clips were then applied onto the cystic artery and 1 towards the gallbladder and divided by sharp scissors.? Additional traversing vessel was clipped and divided.? N ? Dissection was then carried along of the gallbladder from the gallbladder fossa using cautery as well as sharp dissection with heat energy.noticed that the gallbladder shows intrahepatic component? The gallbladder then was dissected out from the gallbladder fossa totally , cholecystectomy was then achieved and was placed in an Endo Catch bag and then retrieved from the Cohen trocar site under direct visualization using a 5 mm 30? scope through the epigastric trocar, specimen was then passed to the circulating nurse to go for permanent pathology,irrigation and hemostasis was done to the gallbladder fossa after hemostasis was secured using Surgi-Bakari and Surgicel in addition to multiple clips at the gallbladder fossa., final survey laparoscopy was done that showed no injuries.? Suction irrigation was obtained The supraumbilical fascial defect was then closed using interrupted number one PDS sutures using a fascial closure device ;Galileo Damian under direct visualization following that Gas was allowed to deflate,Trocars were then taken out under direct vision there was no evidence of bleeding. Specimen was passed to the circulating nurse for permanent pathology. No drains were placed and the supraumbilical incision as well as all trocar sites were closed? by skin ruiz to approximate the skin edges of the incisions ,dressing was applied in the form of surical glue and the patient patient got extubated and was taken to recovery area in a stable condition. Count of sponges,needles and instruments were completed at the end of the procedure I was present for the whole entire procedure. Dictated By: Wicho Newman MD Signed By: Wicho Newman MD Signed Date/Time: 05/18/22 6806 Discharge Plan Discharge Patient Disposition: Home Condition: Stable Prescriptions: New hydrocodone-acetaminophen 5-325 mg tablet 1 tab PO Q6H PRN (Reason: pain) Qty: 28 0RF Continued cholecalciferol (vitamin D3) 125 mcg (5,000 unit) capsule 125 mcg PO DAILY Qty: 90 0RF doxycycline hyclate 100 mg tablet 100 mg PO BID 10 Days Qty: 20 0RF Rexulti 1 mg tablet 1 mg PO DAILY Qty: 30 5RF diclofenac sodium 3 % gel 1 applic topical BID Qty: 100 1RF Rx Instructions: Topically to bilateral knees clonazepam 1 mg tablet 1 mg PO TID PRN (Reason: anxiety) Qty: 90 2RF atorvastatin 10 mg tablet 10 mg PO BEDTIME doxepin 50 mg capsule 50 mg PO DAILY citalopram 40 mg tablet 40 mg PO DAILY Discharge Orders: Discharge Order (Routine); Ordered 05/19/22 Ordered By: Wicho Newman Referrals: Wicho Newman MD [Physician] - 05/26/22 10:30 am (RTC in one week) Discharge Diet: Advance as tolerated Discharge Activity: Limit activity as instructed Patient Instructions: Hydrocodone/Acetaminophen (By mouth), Laparoscopic Cholecystectomy (GEN), Opioid Safety, Post Anesthesia Care Activity Restrictions/Additional Instructions: 1. Patient can shower after 48 hours from surgery 2. Remove secondary dressing can take down after 48 hours. 3. Up and walking as tolerated 4. Do not lift more than 5 pounds first 2 weeks after surgery and not more than 25 pounds 6 to 8 weeks after surgery. 5. Do not operate heavy machinery or drive while using pain medications. 6.Contact the office or return to the ER for worsening nausea vomiting fevers or chills, or noticing any redness around incision sites or discharge. 7.Avoid NSAIDs 8.Cessation of smoking Attestations Medical Necessity Statement*: Observation status for intraoperative bleeding Time Spent in Patient Care*: greater than 30 min Specific Discharge Activities: Specific discharge activities: educating patient and educating and/or supporting family/caregiver Status at Discharge: Cognitive status at discharge: cognitively intact , Behavioral status at discharge: cooperative , Functional status at discharge: independent ambulation Overall status at discharge: patient is progressing back to baseline Quality Metrics Clinical Quality Measures: [ No reported AMI, CVA or VTE this stay ] Coding Level of Care Code Acute Jigman for Melissa Rao
[2022-05-19 12:54] VITALS: PULSE 70; RESP 18; O2SAT 95
== END 2022-05-19 12:55 | disposition home or self-care (01) ==
LOC: MEDSURG 13:42
PROVIDERS: Anesthesiology; Admitting Provider Surgery; PCP Family Medicine; Visit Provider Surgery
PROC: 0FT44ZZ Resection of Gallbladder, Percutaneous Endoscopic Approach (ICD-10-PCS; CPT 47562; principal; 2022-05-18 09:40)
DX: K80.10 Calculus of gallbladder with chronic cholecystitis without obstruction (principal); K76.0 Fatty (change of) liver, not elsewhere classified; G47.33 Obstructive sleep apnea (adult) (pediatric); F17.210 Nicotine dependence, cigarettes, uncomplicated; J44.9 Chronic obstructive pulmonary disease, unspecified; G47.30 Sleep apnea, unspecified; E78.5 Hyperlipidemia, unspecified; E66.01 Morbid (severe) obesity due to excess calories; Z68.34 Body mass index [BMI] 34.0-34.9, adult; F41.9 Anxiety disorder, unspecified; F32.A Depression, unspecified
CPT/HCPCS: 47562; 36415; 80048; 80053; 82248; 85014; 85018; 85025; 88304; 93005; G0378; J0131; J0295; J1100; J1170; J1644; J2270; J2405; J2704; J3010; J3490; J7030

== ENCOUNTER → 2022-05-19 10:40 | Outpatient (BNVA) | payer MEDICARE, MEDICAID, SELFPAY | PROVIDERS: PCP Family Medicine; Visit Provider Family Medicine | DX: Z20.822 Contact with and (suspected) exposure to COVID-19 (principal); J01.90 Acute sinusitis, unspecified | CPT/HCPCS: 87426 ==

== ENCOUNTER → 2022-05-26 10:11 | Outpatient (BNVA) | payer MEDICARE, MEDICAID, SELFPAY | PROVIDERS: PCP Family Medicine; Visit Provider Surgery | DX: Z09 Encounter for follow-up examination after completed treatment for conditions other than malignant neoplasm (principal) | CPT/HCPCS: 99024 ==

== ENCOUNTER 2022-06-05 09:55 | Emergency (ER) | payer MEDICARE, MEDICAID, SELFPAY ==
[2022-06-05 09:56] VITALS: BP 148/86; PULSE 70; RESP 16; TEMP 36.9; O2SAT 99; BMI 33.9
--- NOTE | 2022-06-05 10:17 | W.ED.ABDPA2 ---
HPI - Abdominal Pain General: Chief Complaint: Abdominal Pain Stated Complaint: ABD PAIN Time Seen by Provider: 06/05/22 10:06 History of Present Illness: severe abd pain post eating this morning Associated Symptoms: Reports GI cramping and nausea; Denies coffee ground emesis Review of Systems General: Reports: 10 or more systems reviewed and unremarkable except in HPI and below GI: Reports: abdominal pain (lower abdomen ), nausea and GI cramping; Denies: coffee ground emesis or dysphagia PFSH ED PFSH: Medical History Arthritis B/L knees, left ankle Chronic kidney disease Depression with anxiety Dyslipidemia Hepatic steatosis Hx of gallstones Hyperglycemia Open left ankle fracture SOLIS (obstructive sleep apnea) Symptomatic cholelithiasis Surgical History H/O hand surgery Right History of arthroplasty of left ankle History of colonoscopy (12/16/21) Family History Mother Diabetes Father Cancer unknown type of cancer Social History Smoking and tobacco status: current every day smoker (pack and a half ) Second hand smoke exposure: Yes Alcohol intake: never Adopted: No Caregiver/support person: Yes Lives independently: Yes Household members: family Housing: Manufactured/Mobile home Marital status: / Number of children: 0 Highest education level completed: High School Graduate service: Yes status: Retired branch: [employer] Current occupational status: retired Pets and animals: No History of recent travel: Yes (from [place]) Out of state: Yes Sexually active: No Current gender identity: Female Special isaac needs: No Physical Exam Const: COMMON NORMALS: no acute distress, patient oriented x3, no limitations and alert GENERAL APPEARANCE: cooperative and comfortable ORIENTATION/CONSCIOUSNESS: Yes awake, Yes oriented to person, Yes oriented to place and Yes oriented to time HENMT: COMMON NORMALS: normocephalic, atraumatic, external ears normal, EAC's normal, TM's normal bilaterally and Normal external nose present HEAD & SCALP: normal to inspection, normocephalic and atraumatic FACE & SINUS: normal facial exam, sinuses nontender and face symmetric NOSE: Normal external nose present, Normal nares present and No nasal discharge present EXTERNAL EAR: Yes external ears normal EXTERNAL AUDITORY CANAL: EAC's normal TYMPANIC MEMBRANE: TM's normal bilaterally MOUTH: Normal oral and palatal mucosa present, lip normal and tongue normal THROAT: posterior oropharynx normal, tonsils normal and uvula midline Eye: COMMON NORMALS: Equal, round and reactive pupils present, EOMs intact bilaterally and conjunctivae normal GENERAL EYE: appearance normal, both eyes and all related structures and normal light reflex EYELID: eyelids normal CONJUNCTIVA: Yes conjunctivae normal PUPIL: Yes Equal, round and reactive pupils present EOM: Yes EOM abnormal DIRECT OPHTHALMOSCOPY: Yes normal light reflex Neck/C-Spine: COMMON NORMALS: full ROM, no lymphadenopathy, supple, no meningeal signs, no JVD and Thyroid normal GENERAL: Yes normal visual inspection THYROID: Thyroid normal CERVICAL SPINE: Yes cervical ROM normal and Yes normal cervical lordosis Lymph: LYMPHATIC: no lymphadenopathy noted Chest: COMMONS NORMALS: normal inspection of the chest and normal palpation of entire chest wall Resp: COMMON NORMALS: normal respiratory effort, No retractions and clear to auscultation bilaterally AUSCULTATION: clear to auscultation bilaterally Cardio: COMMON NORMALS: no JVD, regular rate, regular rhythm, S1 normal heart sound present, S2 normal heart sound present, No gallops present (Cardio), No clicks present (Cardio), No murmurs present (Cardio), No rub (Cardio) and Peripheral pulses 2+ throughout RATE: regular rate RHYTHM: regular rhythm HEART SOUNDS: S1 normal heart sound present and S2 normal heart sound present PERIPHERAL PULSES: Peripheral pulses 2+ throughout GI: COMMON NORMALS: Normal to inspection, nondistended, normoactive bowel sounds present, Soft to palpation, non-tender and no masses PALPATION: Yes Soft to palpation and Yes Tenderness to palpation present (GI) Details: LLQ and RLQ : COMMON NORMALS: Yes no CVA tenderness and Yes normal external appearance BLADDER/KIDNEY EXAM: Yes no CVA tenderness Back/Pelvis: COMMON NORMALS: no CVA tenderness, thoracic and lumbar spine normal to inspection, no thoracic nor lumbar tenderness and thoraco-lumbar ROM normal Extremity: COMMON NORMALS: normal to inspection, full ROM, capillary refill normal, no joint enlargement, no clubbing, cyanosis or edema, no calf tenderness and no pedal edema GENERAL: Yes normal exam except as noted Neuro: COMMON NORMALS: patient oriented x3, moves all extremities, no focal motor deficits, no sensory deficits noted and gait normal SENSORIUM/ORIENTATION: Yes alert, Yes oriented to person, Yes oriented to place and Yes oriented to time MENINGEAL SIGNS: Yes no meningeal signs Psych: COMMON NORMALS: mental status grossly normal, Normal thought process present, cooperative, normal affect, speech normal and activity/motor behavior normal SPEECH: Yes normal speech THOUGHT PROCESS: Normal thought process present Skin: COMMON NORMALS: no rashes or lesions noted, no wounds and turgor normal GENERAL SKIN EXAM: no rashes or lesions noted and turgor normal Course ED course: Pt pain and nausea have subsided. CT shows no concerns for post surgical complications. We will proceed with DC at this time. Vital Signs: Vital signs: Vital Signs Temperature 98.5 F 06/05/22 09:56 Pulse Rate 70 06/05/22 09:56 Respiratory Rate 16 06/05/22 09:56 Blood Pressure 164/93 06/05/22 12:02 Pulse Oximetry 100 06/05/22 12:02 Oxygen Delivery Me thod 06/05/22 09:56 MDM - Abdominal Pain Medical Decision Making Pt had gallbladder removed 2 weeks ago. After eating a mexican this am she states she had severe pain and nausea. We will order pain meds and CT to rule out post surgical complications. Lab Data Labs/Radiology: Radiology Impressions Abdomen CT 06/05/22 11:16 IMPRESSION: Heterogeneous density within the gallbladder fossa felt to represent a small hematoma. Two small bubbles of air are present in this area felt to be related to recent surgery. This area measures approximately 3.4 x 2.1 x 2.5 cm. COMMENTS: Consistent with the [employer]'s Incidental Findings Committee white paper (J Am Paola Radiol 2018): Any incidental renal lesion less than 1 cm or classified as too small to characterize, or any incidental cystic renal lesion characterized as simple-appearing, is likely benign. No follow-up imaging is recommended for these lesions per consensus recommendations based on imaging criteria. Discharge Plan Discharge Patient Disposition: Home Clinical Impression: Gastritis Condition: Stable Prescriptions: New Ultram 50 mg tablet 50 mg PO BID Qty: 10 0RF dicyclomine 10 mg capsule 10 mg PO BID Qty: 10 0RF No Action cholecalciferol (vitamin D3) 125 mcg (5,000 unit) capsule 125 mcg PO DAILY Qty: 90 0RF doxycycline hyclate 100 mg tablet 100 mg PO BID 10 Days Qty: 20 0RF Rexulti 1 mg tablet 1 mg PO DAILY Qty: 30 5RF diclofenac sodium 3 % gel 1 applic topical BID Qty: 100 1RF Rx Instructions: Topically to bilateral knees clonazepam 1 mg tablet 1 mg PO TID PRN (Reason: anxiety) Qty: 90 2RF atorvastatin 10 mg tablet 10 mg PO BEDTIME doxepin 50 mg capsule 50 mg PO DAILY citalopram 40 mg tablet 40 mg PO DAILY hydrocodone-acetaminophen 5-325 mg tablet 1 tab PO Q6H PRN (Reason: pain) Qty: 28 0RF Discharge Orders: Discharge ED (Routine); Ordered 06/05/22 Ordered By: Estella England Referrals: Maureen Eric DO [Primary Care Provider] - Discharge Diet: Advance as tolerated Discharge Activity: Increase activity as tolerated Patient Instructions: Opioid Safety, Pain Management Coding Level of Care Code 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
--- NOTE | 2022-06-05 11:16 | CTR_ITS ---
PROCEDURE INFORMATION: Exam: CT Abdomen Without Contrast Exam date and time: 06/05/2022 11:27 AM Age: 71 years old Clinical indication: Abdominal pain; Localized; Right upper quadrant (ruq); Prior surgery; Surgery date: 3-7 days post-operative; Surgery type: Gallbladder; Additional info: Post gallbladder surgery pain TECHNIQUE: Imaging protocol: Computed tomography of the abdomen without contrast. Total images: 621 Radiation optimization: All CT scans at this facility use at least one of these dose optimization techniques: automated exposure control; mA and/or kV adjustment per patient size (includes targeted exams where dose is matched to clinical indication); or iterative reconstruction. COMPARISON: MR MRCP [id number] 04/14/2022 2:36 PM RADIATION DOSE METRICS: Total DLP (mGy-cm): 585 FINDINGS: Liver: Normal. No mass. Gallbladder and bile ducts: Prior cholecystectomy noted. Heterogeneous density within the gallbladder fossa felt to represent a small hematoma. Two small bubbles of air are present in this area felt to be related to recent surgery. This area measures approximately 3.4 x 2.1 x 2.5 cm. Pancreas: Normal. No ductal dilation. Spleen: Incidental splenic granulomata are noted. Adrenal glands: Normal. No mass. Kidneys and ureters: 4.4 cm largest cyst noted in kidneys that have multiple simple renal cysts. No further evaluation required. Stomach and bowel: Visualized stomach and bowel are unremarkable. No obstruction. No mucosal thickening. Intraperitoneal space: Unremarkable. No free air. No significant fluid collection. Vasculature: Moderate atherosclerotic disease is evident. Mildly dilated infrarenal abdominal aorta measured at 2.3 cm. Lymph nodes: Unremarkable. No enlarged lymph nodes. Bones/joints: Mild scattered degenerative changes of the spine. Soft tissues: Unremarkable. CT/CT abdomen wo con [id number] IMPRESSION: Heterogeneous density within the gallbladder fossa felt to represent a small hematoma. Two small bubbles of air are present in this area felt to be related to recent surgery. This area measures approximately 3.4 x 2.1 x 2.5 cm. COMMENTS: Consistent with the [employer]'s Incidental Findings Committee white paper (J Am Paola Radiol 2018): Any incidental renal lesion less than 1 cm or classified as too small to characterize, or any incidental cystic renal lesion characterized as simple-appearing, is likely benign. No follow-up imaging is recommended for these lesions per consensus recommendations based on imaging criteria.
[2022-06-05 11:25] VITALS: BP 154/82
[2022-06-05] MEDS: ketorolac 30 mg/mL INJ IVP (11:52)
[2022-06-05] MEDS: dicyclomine 10 mg Capsule PO (11:53)
[2022-06-05 11:55] VITALS: O2SAT 100
[2022-06-05 12:02] VITALS: BP 164/93; O2SAT 100
[2022-06-05 12:30] VITALS: BP 164/93
== END 2022-06-05 12:53 | disposition home or self-care (01) ==
PROVIDERS: Emergency Provider Nurse Practitioner Family; PCP Family Medicine
DX: K29.70 Gastritis, unspecified, without bleeding (principal); F17.210 Nicotine dependence, cigarettes, uncomplicated; N18.9 Chronic kidney disease, unspecified; E78.5 Hyperlipidemia, unspecified
CPT/HCPCS: 74150; 96374; 99285; J1885

== ENCOUNTER 2022-09-20 12:00 | Outpatient (CLI) | payer MEDICARE, MEDICAID, SELFPAY ==
--- NOTE | 2022-09-20 12:17 | XR_ITS ---
WS: [id number] Lumbar spine, 3 views, 09/20/2022 Clinical Data: low back pain with radiculopathy Comparison: None. Findings: No compression fractures are seen. There is degenerative disc narrowing at L5-S1 with a 0.4 cm sublux ation.. The transverse processes and SI joints are normal. There is minimal anterior osteoarthritic change from L2 through L5. There is calcification of the wal l of the abdominal aorta but no aneurysm. XR/XR lumbar spine 2-3V* [id number] Impression: 1. Degenerative disc narrowing at L5-S1 with 0.4 cm anterior subluxation. 2. Mild osteoarthritis L2-L5.
== END 2022-09-20 12:01 | disposition home or self-care (01) ==
PROVIDERS: PCP Family Medicine; Visit Provider Family Medicine
DX: M54.16 Radiculopathy, lumbar region (principal); M47.816 Spondylosis without myelopathy or radiculopathy, lumbar region; S33.39XA Dislocation of other parts of lumbar spine and pelvis, initial encounter; X58.XXXA Exposure to other specified factors, initial encounter
CPT/HCPCS: 72100

== ENCOUNTER 2022-10-25 06:00 | Outpatient (RCR) | payer MEDICARE, MEDICAID, SELFPAY | END 2022-11-21 23:59 | disposition home or self-care (01) | LOC: SPT 06:00 | PROVIDERS: Visit Provider Family Medicine | DX: R26.9 Unspecified abnormalities of gait and mobility (principal) | CPT/HCPCS: 97161 ==

== ENCOUNTER 2022-12-08 10:49 | Emergency (ER) | payer MEDICARE, MEDICAID, SELFPAY ==
[2022-12-08 10:55] VITALS: BP 150/92; PULSE 82; RESP 17; TEMP 36.5; O2SAT 93; BMI 33.9
--- NOTE | 2022-12-08 11:17 | W.ED.ABDPA2 ---
HPI - Abdominal Pain General: Chief Complaint: Abdominal Pain Stated Complaint: abd pain Time Seen by Provider: 12/08/22 10:55 History of Present Illness: Presents to the ER with complaints of lower abdominal pain and diarrhea for a week. Patient states she has had this in the past prior to getting her gallbladder taken out approximately a year ago. Since she had her gallbladder out she has not had this since then but feels the exact same. MD elicited complaint: abdominal pain Onset (ago): week(s) (1 week ago) Pain Consistency: constant Location: Suprapubic Severity: moderate Quality: aching Radiation: none Migration to: no migration Exacerbating factors: eating Relieving factors: nothing Context: history of similar episodes Associated Symptoms: Reports diarrhea; Denies chills, dysuria, fever(s), nausea and vomiting Review of Systems General: Reports: 10 or more systems reviewed and unremarkable except in HPI and below Const: Denies: fever(s) or chills Eyes: Denies: change in vision or eye discomfort ENMT: Denies: throat pain or odynophagia Card: Denies: chest pain, palpitations or irregular heart rhythm Resp: Denies: dyspnea, productive cough or non-productive cough GI: Reports: abdominal pain and diarrhea; Denies: nausea or vomiting : Denies: flank pain, difficulty voiding or dysuria Musc: Denies: neck pain, back pain or extremity pain Skin/Breast: Denies: rash or pruritus Neuro: Denies: headache(s), numbness in extremities or weakness in extremities PFSH ED PFSH: Medical History Arthritis B/L knees, left ankle Chronic kidney disease Depression with anxiety Dyslipidemia Hepatic steatosis Hx of gallstones Hyperglycemia Open left ankle fracture SOLIS (obstructive sleep apnea) Symptomatic cholelithiasis Surgical History H/O hand surgery Right History of arthroplasty of left ankle History of colonoscopy (12/16/21) History of laparoscopic cholecystectomy Family History Mother Diabetes Father Cancer unknown type of cancer Social History Smoking and tobacco status: current every day smoker (pack and a half ) Second hand smoke exposure: Yes Alcohol intake: never Substance/Drug Use: never Adopted: No Caregiver/support person: Yes Lives independently: Yes Household members: family Housing: Manufactured/Mobile home Marital status: / Number of children: 0 Highest education level completed: High School Graduate service: Yes status: Retired branch: [employer] Current occupational status: retired Pets and animals: No Sexually active: No Do you think of yourself as: Straight/Heterosexual Current gender identity: Female Special isaac needs: No Physical Exam Const: COMMON NORMALS: no acute distress, average body habitus, patient oriented x3, no limitations, healthy appearing, alert and well nourished HENMT: COMMON NORMALS: normocephalic, atraumatic, hearing grossly normal bilaterally, external ears normal, Normal external nose present and moist oral mucous membranes HEAD & SCALP: normocephalic and atraumatic NOSE: Normal external nose present EXTERNAL EAR: Yes external ears normal Eye: COMMON NORMALS: Equal, round and reactive pupils present, EOMs intact bilaterally, conjunctivae normal and no scleral icterus CONJUNCTIVA: Yes conjunctivae normal PUPIL: Yes Equal, round and reactive pupils present Neck/C-Spine: COMMON NORMALS: full ROM, no lymphadenopathy, supple, no meningeal signs, no JVD and Thyroid normal THYROID: Thyroid normal Lymph: LYMPHATIC: no lymphadenopathy noted Chest: COMMONS NORMALS: normal inspection of the chest and normal palpation of entire chest wall Resp: COMMON NORMALS: normal respiratory effort, No retractions, No use of accessory muscles and clear to auscultation bilaterally AUSCULTATION: clear to auscultation bilaterally Cardio: COMMON NORMALS: no JVD, regular rate, regular rhythm, S1 normal heart sound present, S2 normal heart sound present, No gallops present (Cardio) and No clicks present (Cardio) RATE: regular rate RHYTHM: regular rhythm HEART SOUNDS: S1 normal heart sound present and S2 normal heart sound present GI: COMMON NORMALS: Soft to palpation INSPECTION: Yes normal to inspection AUSCULTATION: Yes normoactive bowel sounds PALPATION: Yes Soft to palpation and Yes Tenderness to palpation present (GI) (Suprapubically and left lower quadrant) : COMMON NORMALS: Yes no CVA tenderness BLADDER/KIDNEY EXAM: Yes no CVA tenderness Back/Pelvis: COMMON NORMALS: no CVA tenderness Neuro: COMMON NORMALS: patient oriented x3 SENSORIUM/ORIENTATION: Yes alert MENINGEAL SIGNS: Yes no meningeal signs Course Vital Signs: Vital signs: Vital Signs Temperature 97.7 F 12/08/22 10:55 Pulse Rate 82 12/08/22 10:55 Respiratory Rate 17 12/08/22 10:55 Blood Pressure 150/92 12/08/22 10:55 Pulse Oximetry 93 12/08/22 10:55 Oxygen Delivery Me thod Room Air 12/08/22 10:55 MDM - Abdominal Pain Medical Decision Making Patient presents to the ER with abdominal pain and diarrhea. Patient was given 1 L fluid bolus during physical exam. Lab work was obtained as well as CT all which were essentially benign. Lab work showed a sodium 132 and a creatinine of 1.1, CT showed no acute abnormality in the abdomen or pelvis. Differential Diagnosis Likely abdominal pain and gastroenteritis; Unlikely acute appendicitis, calculus of kidney, constipation, diverticulitis, endometriosis, pancreatitis or small bowel obstruction Medical Records I reviewed the patient's medical records. Lab Data I reviewed the patient's lab results. 12/08/22 11:12 12/08/22 11:12 Labs/Radiology: Radiology Impressions Abdomen/Pelvis CT 12/08/22 12:04 IMPRESSION: 1. Status post cholecystectomy. 2. No acute abdominal or pelvic abnormalities are identified. No evidence for colitis or GI tract obstruction. 3. Normal appendix. Laboratory Results WBC 6.6 10^3/uL (4.0-10.0) 12/08/22 11:12 RBC 4.59 10^6/uL (4.1-5.3) 12/08/22 11:12 Hgb 13.7 g/dL (11.5-15.3) 12/08/22 11:12 Hct 41.4 % (37.0-47.0) 12/08/22 11:12 MCV 90.2 fl (81-99) 12/08/22 11:12 MCH 29.8 pg (28.0-34.0) 12/08/22 11:12 MCHC 33.1 g/dL (30.0-36.0) 12/08/22 11:12 RDW 12.8 % (12.1-15.1) 12/08/22 11:12 Plt Count 246 10^3/cmm (130-400) 12/08/22 11:12 MPV 9.3 fL (7.4-10.4) 12/08/22 11:12 Neut % (Auto) 51.0 % 12/08/22 11:12 Lymph % (Auto) 40.1 % 12/08/22 11:12 Metcalfe % (Auto) 6.1 % 12/08/22 11:12 Eos % (Auto) 1.8 % 12/08/22 11:12 Baso % (Auto) 0.8 % 12/08/22 11:12 Neut # (Auto) 3.38 10^3/uL (1.8-7.7) 12/08/22 11:12 Lymph # (Auto) 2.7 10^3/uL (0.8-4.8) 12/08/22 11:12 [place]calfe # (Auto) 0.4 10^3/uL (0.2-0.9) 12/08/22 11:12 Eos # (Auto) 0.1 10^3/uL (0.0-0.8) 12/08/22 11:12 Baso # (Auto) 0.1 10^3/uL (0.0-0.1) 12/08/22 11:12 Nucleated RBC % (auto) 0 % 12/08/22 11:12 Nucleated RBCs # 0.0 /100WBC 12/08/22 11:12 Sodium 132 mmol/L (136-145) L 12/08/22 11:12 Potassium 4.2 mmol/L (3.5-5.1) 12/08/22 11:12 Chloride 98 mmol/L (98-107) 12/08/22 11:12 Carbon Dioxide 23 mmol/L (22-29) 12/08/22 11:12 Anion Gap 15.2 (5-19) 12/08/22 11:12 BUN 12 mg/dL (8-23) 12/08/22 11:12 Creatinine 1.1 mg/dL (0.5-0.9) H 12/08/22 11:12 GFR Calculation Not Reportable 12/08/22 11:12 Glucose 113 mg/dL (65-115) 12/08/22 11:12 Calculated Osmolality 275 mOsm/kg (285-295) L 12/08/22 11:12 Calcium 9.3 mg/dL (8.5-10.5) 12/08/22 11:12 Magnesium 1.9 mg/dL (1.7-2.3) 12/08/22 11:12 Total Bilirubin 0.7 mg/dL (0.15-1.2) 12/08/22 11:12 AST 10 U/L (0-32) 12/08/22 11:12 ALT 8 U/L (0-33) 12/08/22 11:12 Alkaline Phosphatase 131 U/L (35-105) H 12/08/22 11:12 Total Protein 7.4 g/dL (6.6-8.7) 12/08/22 11:12 Albumin 4.3 g/dL (3.5-5.2) 12/08/22 11:12 Globulin 3.1 g/dL (1.3-4.6) 12/08/22 11:12 Lipase 23 U/L (13-60) 12/08/22 11:12 Urine Color Yellow (Yellow) 12/08/22 11:30 Urine Appearance Clear (CLEAR) 12/08/22 11:30 Urine pH 5 (5-7) 12/08/22 11:30 Ur Specific [place] 1.010 (1.005-1.030) 12/08/22 11:30 Urine Protein Neg (Negative) 12/08/22 11:30 Urine Glucose (UA) Norm (Normal) 12/08/22 11:30 Urine Ketones Negative (Negative) 12/08/22 11:30 Urine Blood Neg (Negative) 12/08/22 11:30 Urine Nitrate Negative (Negative) 12/08/22 11:30 Urine Bilirubin Neg (Negative) 12/08/22 11:30 Urine Urobilinogen Neg mg/dL (Negative) 12/08/22 11:30 Ur Leukocyte Esterase Negative (Negative) 12/08/22 11:30 Discharge Plan Discharge Patient Disposition: Home Clinical Impression: Abdominal pain Qualifiers: Abdominal location: lower abdomen, unspecified Qualified Code(s): R10.30 - Lower abdominal pain, unspecified Diarrhea Qualifiers: Diarrhea type: unspecified type Qualified Code(s): R19.7 - Diarrhea, unspecified Condition: Stable Prescriptions: No Action cholecalciferol (vitamin D3) 125 mcg (5,000 unit) capsule 125 mcg PO DAILY Qty: 90 0RF diclofenac sodium 3 % gel 1 applic topical BID Qty: 100 1RF Rx Instructions: Topically to bilateral knees Rexulti 1 mg tablet 1 mg PO DAILY Qty: 30 5RF citalopram 40 mg tablet 40 mg PO DAILY Qty: 90 1RF atorvastatin 10 mg tablet See Rx Instructions .ROUTE .COMPLEX Qty: 90 1RF Dose Instruction: TAKE 1 TABLET(10 MG) BY MOUTH EVERY NIGHT Rx Instructions: TAKE 1 TABLET(10 MG) BY MOUTH EVERY NIGHT doxepin 50 mg capsule 50 mg PO DAILY Qty: 90 1RF clonazepam 1 mg tablet 1 mg PO BID PRN (Reason: anxiety) Qty: 60 2RF hydrocortisone 2.5 % cream 1 applic topical BID PRN (Reason: skin irritation) 5 Days Qty: 20 0RF permethrin 5 % cream 1 applic topical Q14D Qty: 60 0RF Rx Instructions: apply second treatment 14 days after first treatment if live lice remain (DME) wheeled walker See Rx Instructions .Route .MEDSUPPLY Qty: 1 0RF Rx Instructions: As directed dicyclomine 10 mg capsule 10 mg PO BID Qty: 10 0RF Discharge Orders: Discharge ED (Routine); Ordered 12/08/22 Ordered By: Juan eMyers Referrals: Maureen Eric DO [Primary Care Provider] - 1 week Patient Instructions: Acute Diarrhea (ED), Abdominal Pain (ED) Coding Level of Care Code ED [employer] for Melissa Rao
[2022-12-08 11:21] LABS: Basophils # 0.1 10^3/uL (0.0-0.1); Basophils % 0.8 %; Eosinophils # 0.1 10^3/uL (0.0-0.8); Eosinophils % 1.8 %; Hematocrit 41.4 % (37.0-47.0); Hemoglobin 13.7 g/dL (11.5-15.3); Lymphocytes # 2.7 10^3/uL (0.8-4.8); Lymphocytes % 40.1 %; Mean Corpuscular HGB Conc 33.1 g/dL (30.0-36.0); Mean Corpuscular Hemoglobin 29.8 pg (28.0-34.0); Mean Corpuscular Volume 90.2 fl (81-99); Mean Platelet Volume 9.3 fL (7.4-10.4); Monocytes # 0.4 10^3/uL (0.2-0.9); Monocytes % 6.1 %; Neutrophils # 3.38 10^3/uL (1.8-7.7); Nucleated Red Blood Cells % 0 %; Platelet Count 246 10^3/cmm (130-400); Red Blood Count 4.59 10^6/uL (4.1-5.3); Red Cell Distribution Width 12.8 % (12.1-15.1); White Blood Count 6.6 10^3/uL (4.0-10.0)
[2022-12-08] MEDS: sodium chloride 0.9% 1,000 ML 999 ML IV (11:31)
[2022-12-08 11:36] LABS: Add Urine Microscopic? NO; Charge for UA Resulting for Rev
[2022-12-08 11:39] LABS: Alanine Aminotransferase 8 U/L (0-33); Albumin Level 4.3 g/dL (3.5-5.2); Alkaline Phosphatase 131 U/L (35-105); Anion Gap 15.2 (5-19); Aspartate Amino Transferase 10 U/L (0-32); Blood Urea Nitrogen 12 mg/dL (8-23); Calcium 9.3 mg/dL (8.5-10.5); Carbon Dioxide 23 mmol/L (22-29); Chloride 98 mmol/L (98-107); Globulin 3.1 g/dL (1.3-4.6); Glucose 113 mg/dL (65-115); Magnesium 1.9 mg/dL (1.7-2.3); Osmolality Calculated 275 mOsm/kg (285-295); Potassium 4.2 mmol/L (3.5-5.1); Sodium 132 mmol/L (136-145); Total Bilirubin 0.7 mg/dL (0.15-1.2); Total Protein 7.4 g/dL (6.6-8.7)
[2022-12-08 11:40] LABS: Bilirubin Urine Neg (Negative); Blood Urine Neg (Negative); Glucose Urine UA Norm (Normal); Ketones Urine Negative (Negative); Leukocyte Esterase Urine Negative (Negative); Nitrate Urine Negative (Negative); Protein Urine Neg (Negative); Urine Appearance Clear (CLEAR); Urine Color Yellow (Yellow); Urobilinogen Urine Neg (Negative); pH Urine 5 (5-7)
--- NOTE | 2022-12-08 12:04 | CT_ITS ---
WS: [id number] CT ABDOMEN AND PELVIS WITH CONTRAST HISTORY: Abdominal pain with diarrhea. TECHNIQUE: Imaging performed of the abdomen and pelvis with IV contrast. Single phase imaging of the abdomen. Coronal and sagittal reformats are submitted. All CT scans at [facility] use at [address] one of these dose optimization techniques: automated exposure control; mA and/or kV adjustment per patient size (includes targeted exams where dose is matched to clinical indication); or iterative re construction. IV CONTRAST: Omnipaque 350; 100 mL IV. Oral contrast: No DLP: 901.03 mGy.cm COMPARISON: 06/05/2022 Lower thorax: Hyperinflated lung bases. No mass. Heart is normal size. Moderate-sized hiatal hernia. Liver/biliary system: Normal size with no intrahepatic dilatation. Gallbladder: Status post cholecystectomy. Pancreas: Normal. Spleen: Normal size spleen. No mass or infarct. Scattered granulomata. Adrenal glands: Normal. Right kidney: Normal size kidney. Multiple cortical cysts with the largest measuring 3.4 cm. No obstr uction. Left kidney: Normal size kidney. No obstruction. Renal cyst measures 3.8 cm maximum diameter. Aorta: Moderate atherosclerosis with no aneurysm. Lymphadenopathy: None. Free fluid: None. GI tract: Negative stomach. No small bowel obstruction. Normal appendix. No diverticular disease. Abdominal wall: Fat containing umbilical hernia. Pelvis: No free fluid or adenopathy within the pelvis. Well-distended urinary bladder. Uterus is midl ine. No adnexal masses. No adenopathy. Bones: Increase in lumbar lordosis. CT/CT abdomen pelvis w con* [id number] IMPRESSION: 1. Status post cholecystectomy. 2. No acute abdominal or pelvic abnormalities are identified. No evidence for colitis or GI tract obstruction. 3. Normal appendix.
[2022-12-08 12:11] LABS: Lipase 23 U/L (13-60)
[2022-12-08] MEDS: iohexol 350 mg/mL 500 mL Btl (per mL) IV (12:40)
== END 2022-12-08 13:30 | disposition home or self-care (01) ==
PROVIDERS: Emergency Provider Emergency Medicine; PCP Family Medicine
DX: R10.2 Pelvic and perineal pain (principal); R19.7 Diarrhea, unspecified; E87.6 Hypokalemia; R79.89 Other specified abnormal findings of blood chemistry
CPT/HCPCS: 74177; 80053; 81003; 83690; 83735; 85025; 96360; 96361; 99285; J7030; Q9967

== ENCOUNTER 2022-12-31 14:56 | Emergency (ER) | payer MEDICARE, MEDICAID, SELFPAY ==
[2022-12-31 15:27] VITALS: BP 130/78; PULSE 80; RESP 18; TEMP 36.8; O2SAT 96; BMI 33.9
--- NOTE | 2022-12-31 17:57 | ED_ITS ---
HPI - Fall General: Chief Complaint: Fall Stated Complaint: falls Time Seen by Provider: 12/31/22 17:40 History of Present Illness: Patient is a 72-year-old female that comes to the ED for evaluation due to increased falls. Past medical history of CKD, depression and anxiety. Patient currently lives home alone and her family member that is present is concerned that patient is not safe at home. Over the past 3 weeks she has had at least 8 falls that require her assistance to get up. Patient states that she is not currently very active and is probably deconditioned. Her most recent fall was a couple days ago and patient says she was walking and then felt like her legs gave out on her and she fell down to the floor. She denies any head trauma or loss of consciousness. She states that she has no current pain in her body and denies any pain in her legs, arms, hips or feet. Patient does state that she has a numbness tingling sensation from her feet up to just below her knees and her legs bilaterally. Endorses some mild lower back pain occasionally. Patient states that her doctor did diagnose her with neuropathy in the past. Denies any chest pain, shortness of breath, fevers, abdominal pain, nausea/vomiting, bladder or bowel symptoms. Associated symptoms-after fall: Denies abdominal pain, chest pain, headache(s), hematuria or neck pain Review of Systems Const: Denies: fever(s), chills or fatigue Eyes: Denies: change in vision or eye discomfort ENMT: Denies: throat pain, odynophagia, nasal discharge or nasal congestion Card: Denies: chest pain, palpitations, edema, swelling of feet/ankles, dyspnea on exertion or orthopnea Resp: Denies: dyspnea, productive cough or non-productive cough GI: Denies: abdominal pain, nausea, vomiting, diarrhea, constipation or hematochezia : Denies: flank pain, dysuria or hematuria Musc: Denies: neck pain, back pain or extremity swelling Skin/Breast: Denies: rash or new lesions Neuro: Denies: headache(s), numbness in extremities or weakness in extremities PFS ED PFSH: Medical History Arthritis B/L knees, left ankle Chronic kidney disease Depression with anxiety Dyslipidemia Hepatic steatosis Hx of gallstones Hyperglycemia Open left ankle fracture SOLIS (obstructive sleep apnea) Symptomatic cholelithiasis Surgical History H/O hand surgery Right History of arthroplasty of left ankle History of colonoscopy (12/16/21) History of laparoscopic cholecystectomy Family History Mother Diabetes Father Cancer unknown type of cancer Social History Smoking and tobacco status: current every day smoker (pack and a half ) Second hand smoke exposure: Yes Alcohol intake: never Substance/Drug Use: never Adopted: No Caregiver/support person: Yes Lives independently: Yes Household members: family Housing: Manufactured/Mobile home Marital status: / Number of children: 0 Highest education level completed: High School Graduate service: Yes status: Retired branch: [employer] Current occupational status: retired Pets and animals: No Sexually active: No Do you think of yourself as: Straight/Heterosexual Current gender identity: Female Special isaac needs: No Physical Exam Const: COMMON NORMALS: no acute distress, patient oriented x3, healthy appearing and alert GENERAL APPEARANCE: cooperative and comfortable HENMT: COMMON NORMALS: normocephalic HEAD & SCALP: normocephalic MOUTH: Normal oral and palatal mucosa present THROAT: posterior oropharynx normal and uvula midline Neck/C-Spine: COMMON NORMALS: supple GENERAL: Yes normal visual inspection Resp: COMMON NORMALS: normal respiratory effort, No retractions, No use of accessory muscles and clear to auscultation bilaterally AUSCULTATION: clear to auscultation bilaterally Cardio: COMMON NORMALS: regular rate, regular rhythm, S1 normal heart sound present, S2 normal heart sound present, No gallops present (Cardio), No clicks present (Cardio), No murmurs present (Cardio) and Peripheral pulses 2+ throughout RATE: regular rate RHYTHM: regular rhythm HEART SOUNDS: S1 normal heart sound present and S2 normal heart sound present PERIPHERAL PULSES: Peripheral pulses 2+ throughout GI: COMMON NORMALS: Normal to inspection, nondistended, normoactive bowel sounds present, Soft to palpation, non-tender and no masses PALPATION: Yes Soft to palpation : COMMON NORMALS: Yes no CVA tenderness BLADDER/KIDNEY EXAM: Yes no CVA tenderness Back/Pelvis: COMMON NORMALS: no CVA tenderness Extremity: COMMON NORMALS: normal to inspection and full ROM NARRATIVE EXTREMITY EXAM: Patient has 5 out of 5 strength in lower extremities bilaterally. Neuro: COMMON NORMALS: patient oriented x3 SENSORIUM/ORIENTATION: Yes alert GAIT: Yes Normal gait present Skin: GENERAL SKIN EXAM: dry skin Course Vital Signs: Vital signs: Vital Signs Temperature 98.2 F 12/31/22 15:27 Pulse Rate 80 12/31/22 15:27 Respiratory Rate 18 12/31/22 15:27 Blood Pressure 130/78 12/31/22 15:27 Pulse Oximetry 96 12/31/22 15:27 Oxygen Delivery Me thod Room Air 12/31/22 15:27 MDM - Fall Medical Decision Making Patient is a 72-year-old female that comes to the ED for evaluation due to increased falls. Past medical history of CKD, depression and anxiety. Patient currently lives home alone and her family member that is present is concerned that patient is not safe at home. Over the past 3 weeks she has had at least 8 falls that require her assistance to get up. Patient states that she is not currently very active and is probably deconditioned. Her most recent fall was a couple days ago and patient says she was walking and then felt like her legs gave out on her and she fell down to the floor. She denies any head trauma or loss of consciousness. She states that she has no current pain in her body and denies any pain in her legs, arms, hips or feet. Patient does state that she has a numbness tingling sensation from her feet up to just below her knees and her legs bilaterally. Endorses some mild lower back pain occasionally. Patient states that her doctor did diagnose her with neuropathy in the past. Denies any chest pain, shortness of breath, fevers, abdominal pain, nausea/vomiting, bladder or bowel symptoms. Vitals are stable. Exam of patient is benign. CBC was drawn and white blood cell count was 11 and the rest of CBC was unremarkable. Patient left AMA and did not sign any form. Patient left before lab results came back. Lab Data I reviewed the patient's lab results. 12/31/22 18:01 12/31/22 18:01 Laboratory Results WBC 11.0 10^3/uL (4.0-10.0) H 12/31/22 18:01 RBC 4.06 10^6/uL (4.1-5.3) L 12/31/22 18: Hgb 11.8 g/dL (11.5-15.3) 12/31/22 18: Hct 36.6 % (37.0-47.0) L 12/31/22 18: MCV 90.1 fl (81-99) 12/31/22 18: MCH 29.1 pg (28.0-34.0) 12/31/22 18: MCHC 32.2 g/dL (30.0-36.0) 12/31/22 18: RDW 14.0 % (12.1-15.1) 12/31/22 18: Plt Count 193 10^3/cmm (130-400) 12/31/22 18: MPV 12.0 fL (7.4-10.4) H 12/31/22 18:01 Neut % (Auto) 78.0 % 12/31/22 18: Lymph % (Auto) 13.2 % 12/31/22 18: [place] % (Auto) 7.8 % 12/31/22 18:01 Eos % (Auto) 0.1 % 12/31/22 18: Baso % (Auto) 0.5 % 12/31/22 18: Neut # (Auto) 8.56 10^3/uL (1.8-7.7) H 12/31/22 18:01 Lymph # (Auto) 1.5 10^3/uL (0.8-4.8) 12/31/22 18:01 [place] # (Auto) 0.9 10^3/uL (0.2-0.9) 12/31/22 18:01 Eos # (Auto) 0.0 10^3/uL (0.0-0.8) 12/31/22 18: Baso # (Auto) 0.1 10^3/uL (0.0-0.1) 12/31/22 18: Nucleated RBC % (auto) 0.2 % 12/31/22 18: Nucleated RBCs # 0.0 /100WBC 12/31/22 18:01 Sodium Cancelled 12/31/22 18:01 Potassium Cancelled 12/31/22 18:01 Chloride Cancelled 12/31/22 18:01 Carbon Dioxide Cancelled 12/31/22 18:01 Anion Gap Cancelled 12/31/22 18:01 BUN Cancelled 12/31/22 18:01 Creatinine Cancelled 12/31/22 18:01 GFR Calculation Cancelled 12/31/22 18:01 Glucose Cancelled 12/31/22 18:01 Calculated Osmolality Cancelled 12/31/22 18:01 Calcium Cancelled 12/31/22 18:01 Discharge Plan Discharge Patient Disposition: Left Against Medical Advice Clinical Impression: Fall Condition: Stable Prescriptions: No Action cholecalciferol (vitamin D3) 125 mcg (5,000 unit) capsule 125 mcg PO DAILY Qty: 90 0RF diclofenac sodium 3 % gel 1 applic topical BID Qty: 100 1RF Rx Instructions: Topically to bilateral knees citalopram 40 mg tablet 40 mg PO DAILY Qty: 90 1RF atorvastatin 10 mg tablet See Rx Instructions .ROUTE .COMPLEX Qty: 90 1RF Dose Instruction: TAKE 1 TABLET(10 MG) BY MOUTH EVERY NIGHT Rx Instructions: TAKE 1 TABLET(10 MG) BY MOUTH EVERY NIGHT doxepin 50 mg capsule 50 mg PO DAILY Qty: 90 1RF Rexulti 2 mg tablet 2 mg PO DAILY Qty: 30 0RF clonazepam 1 mg tablet 1 mg PO BID PRN (Reason: anxiety) Qty: 60 2RF (DME) wheeled walker See Rx Instructions .Route .MEDSUPPLY Qty: 1 0RF Rx Instructions: As directed Referrals: Maureen Eric DO [Primary Care Provider] - Coding Level of Care Code ED Graves Registration Specialist for Chg Maira
[2022-12-31 19:19] LABS: Basophils # 0.1 10^3/uL (0.0-0.1); Basophils % 0.5 %; Eosinophils % 0.1 %; Hematocrit 36.6 % (37.0-47.0); Hemoglobin 11.8 g/dL (11.5-15.3); Lymphocytes # 1.5 10^3/uL (0.8-4.8); Lymphocytes % 13.2 %; Mean Corpuscular HGB Conc 32.2 g/dL (30.0-36.0); Mean Corpuscular Hemoglobin 29.1 pg (28.0-34.0); Mean Corpuscular Volume 90.1 fl (81-99); Monocytes # 0.9 10^3/uL (0.2-0.9); Monocytes % 7.8 %; Neutrophils # 8.56 10^3/uL (1.8-7.7); Nucleated Red Blood Cells % 0.2 %; Platelet Count 193 10^3/cmm (130-400); Red Blood Count 4.06 10^6/uL (4.1-5.3)
== END 2022-12-31 18:32 | disposition left against medical advice (07) ==
PROVIDERS: Emergency Provider Physician Assistant; PCP Family Medicine
DX: Z53.29 Procedure and treatment not carried out because of patient's decision for other reasons (principal); R29.6 Repeated falls; R20.0 Anesthesia of skin
CPT/HCPCS: 85025; 99283

== ENCOUNTER 2023-01-08 07:20 | Emergency (ER) | payer MEDICARE, MEDICAID, SELFPAY ==
[2023-01-08 07:22] VITALS: BP 172/111; PULSE 67; RESP 18; TEMP 36.6; O2SAT 99
--- NOTE | 2023-01-08 07:29 | W.ED.WEAKNES ---
HPI - Weakness General: Chief complaint: Weakness Stated complaint: MULTIPLE FALLS Time Seen by Provider: 01/08/23 07:29 History of Present Illness: Ms. Lynch is a 72-year-old lady with complex history including CKD, hyperlipidemia, hepatosteatosis presenting to the emergency department for generalized illness. She notes approximately 2 months ago having increased falls. She is unsure of exactly why she falls more frequently. She feels like her legs do not work like they used to do. Denies specific movements or circumstances where she falls. Does not think that she has syncope. No preceding chest pain or loss of consciousness. She does feel generally unwell however no focal infectious symptoms. She reports compliance with her medication regimen. Apparently she is a frequent color for EMS for lift assist and is working on getting into a detention. No other specific changes in health, exacerbating, or alleviating factors identified. Onset (ago): month(s) Review of Systems General: Reports: 10 or more systems reviewed and unremarkable except in HPI and below PFSH ED PFSH: Medical History Arthritis B/L knees, left ankle Chronic kidney disease Depression with anxiety Dyslipidemia Hepatic steatosis Hx of gallstones Hyperglycemia Open left ankle fracture SOLIS (obstructive sleep apnea) Symptomatic cholelithiasis Surgical History H/O hand surgery Right History of arthroplasty of left ankle History of colonoscopy (12/16/21) History of laparoscopic cholecystectomy Family History Mother Diabetes Father Cancer unknown type of cancer Social History Smoking and tobacco status: current every day smoker (pack and a half ) Second hand smoke exposure: Yes Alcohol intake: never Substance/Drug Use: never Adopted: No Caregiver/support person: Yes Lives independently: Yes Household members: family Housing: Manufactured/Mobile home Marital status: / Number of children: 0 Highest education level completed: High School Graduate service: Yes status: Retired branch: [employer] Current occupational status: retired Pets and animals: No Sexually active: No Do you think of yourself as: Straight/Heterosexual Current gender identity: Female Special isaac needs: No Physical Exam Const: COMMON NORMALS: patient oriented x3 and alert GENERAL APPEARANCE: cooperative and well developed HENMT: COMMON NORMALS: normocephalic and atraumatic HEAD & SCALP: normocephalic and atraumatic Eye: COMMON NORMALS: conjunctivae normal CONJUNCTIVA: Yes conjunctivae normal SCLERA: sclerae normal Neck/C-Spine: COMMON NORMALS: supple GENERAL: Yes trachea midline Resp: COMMON NORMALS: clear to auscultation bilaterally EFFORT & INSPECTION: Yes able to speak in complete sentences AUSCULTATION: clear to auscultation bilaterally Cardio: COMMON NORMALS: regular rate and regular rhythm RATE: regular rate RHYTHM: regular rhythm GI: COMMON NORMALS: Soft to palpation PALPATION: Yes Soft to palpation and No Tenderness to palpation present (GI) Extremity: GENERAL: Yes normal exam except as noted and No edema Neuro: COMMON NORMALS: patient oriented x3, CN's II-XII intact bilaterally, moves all extremities, no focal motor deficits and no sensory deficits noted SENSORIUM/ORIENTATION: Yes alert and No Orientation impaired Psych: COMMON NORMALS: mental status grossly normal and Normal thought process present THOUGHT PROCESS: Normal thought process present Course Vital Signs: Vital signs: Vital Signs Temperature 97.8 F 01/08/23 07:22 Pulse Rate 67 01/08/23 10:37 Respiratory Rate 16 01/08/23 10:37 Blood Pressure 195/102 01/08/23 10:37 Pulse Oximetry 97 01/08/23 10:37 Oxygen Delivery Me thod Room Air 01/08/23 07:22 MDM - Weakness Medical Decision Making 72-year-old lady presenting with multiple falls. No focal neurologic deficits appreciated on exam however patient is medically subjective reported intermittent symptoms. She does appear to have generalized weakness. No meningismus and patient is nontoxic in appearance. Labs with no significant hematologic abnormality. Metabolic panel with perhaps minimal dehydration. Normal TSH. No UTI. Given clinical exam as well as provided clinical history there is no indication for imaging at this time. Patient does not have acute central findings. The results of ED evaluation were discussed with the patient including prescriptions and/or symptomatic cares (if applicable) including appropriate and responsible use, followup plan, and return precautions. The patient verbalized understanding and felt safe for discharge. Medical Records I reviewed the patient's medical records. Lab Data I reviewed the patient's lab results. 01/08/23 07:37 01/08/23 07:37 Laboratory Results WBC 6.5 10^3/uL (4.0-10.0) 01/08/23 07:37 RBC 4.59 10^6/uL (4.1-5.3) 01/08/23 07:37 Hgb 13.7 g/dL (11.5-15.3) 01/08/23 07:37 Hct 41.5 % (37.0-47.0) 01/08/23 07:37 MCV 90.4 fl (81-99) 01/08/23 07:37 MCH 29.8 pg (28.0-34.0) 01/08/23 07:37 MCHC 33.0 g/dL (30.0-36.0) 01/08/23 07:37 RDW 13.2 % (12.1-15.1) 01/08/23 07:37 Plt Count 272 10^3/cmm (130-400) 01/08/23 07:37 MPV 9.3 fL (7.4-10.4) 01/08/23 07:37 Neut % (Auto) 58.5 % 01/08/23 07:37 Lymph % (Auto) 31.1 % 01/08/23 07:37 [place] % (Auto) 6.6 % 01/08/23 07:37 Eos % (Auto) 2.5 % 01/08/23 07:37 Baso % (Auto) 1.1 % 01/08/23 07:37 Neut # (Auto) 3.82 10^3/uL (1.8-7.7) 01/08/23 07:37 Lymph # (Auto) 2.0 10^3/uL (0.8-4.8) 01/08/23 07:37 [place] # (Auto) 0.4 10^3/uL (0.2-0.9) 01/08/23 07:37 Eos # (Auto) 0.2 10^3/uL (0.0-0.8) 01/08/23 07:37 Baso # (Auto) 0.1 10^3/uL (0.0-0.1) 01/08/23 07:37 Nucleated RBC % (auto) 0 % 01/08/23 07:37 Nucleated RBCs # 0.0 /100WBC 01/08/23 07:37 Sodium 135 mmol/L (136-145) L 01/08/23 07:37 Potassium 3.5 mmol/L (3.5-5.1) 01/08/23 07:37 Chloride 96 mmol/L (98-107) L 01/08/23 07:37 Carbon Dioxide 28 mmol/L (22-29) 01/08/23 07:37 Anion Gap 14.5 (5-19) 01/08/23 07:37 BUN 5 mg/dL (8-23) L 01/08/23 07:37 Creatinine 0.9 mg/dL (0.5-0.9) 01/08/23 07:37 GFR Calculation Not Reportable 01/08/23 07:37 Glucose 108 mg/dL (65-115) 01/08/23 07:37 Calculated Osmolality 278 mOsm/kg (285-295) L 01/08/23 07:37 Calcium 9.6 mg/dL (8.5-10.5) 01/08/23 07:37 Magnesium 1.8 mg/dL (1.7-2.3) 01/08/23 07:37 TSH 2.50 uIU/mL (0.27-4.20) 01/08/23 07:37 Urine Color Colorless (Yellow) 01/08/23 08:05 Urine Appearance Clear (CLEAR) 01/08/23 08:05 Urine pH 6.5 (5-7) 01/08/23 08:05 Ur Specific [place] 1.005 (1.005-1.030) 01/08/23 08:05 Urine Protein Neg (Negative) 01/08/23 08:05 Urine Glucose (UA) Norm (Normal) 01/08/23 08:05 Urine Ketones Negative (Negative) 01/08/23 08:05 Urine Blood Neg (Negative) 01/08/23 08:05 Urine Nitrate Negative (Negative) 01/08/23 08:05 Urine Bilirubin Neg (Negative) 01/08/23 08:05 Urine Urobilinogen Norm mg/dL (Negative) 01/08/23 08:05 Ur Leukocyte Esterase Negative (Negative) 01/08/23 08:05 Discharge Plan Discharge Patient Disposition: Home Clinical Impression: Generalized muscle weakness, Falls frequently Condition: Stable Prescriptions: No Action cholecalciferol (vitamin D3) 125 mcg (5,000 unit) capsule 125 mcg PO DAILY Qty: 90 0RF diclofenac sodium 3 % gel 1 applic topical BID Qty: 100 1RF Rx Instructions: Topically to bilateral knees citalopram 40 mg tablet 40 mg PO DAILY Qty: 90 1RF atorvastatin 10 mg tablet See Rx Instructions .ROUTE .COMPLEX Qty: 90 1RF Dose Instruction: TAKE 1 TABLET(10 MG) BY MOUTH EVERY NIGHT Rx Instructions: TAKE 1 TABLET(10 MG) BY MOUTH EVERY NIGHT doxepin 50 mg capsule 50 mg PO DAILY Qty: 90 1RF Rexulti 2 mg tablet 2 mg PO DAILY Qty: 30 0RF clonazepam 1 mg tablet 1 mg PO BID PRN (Reason: anxiety) Qty: 60 2RF (DME) wheeled walker See Rx Instructions .Route .MEDSUPPLY Qty: 1 0RF Rx Instructions: As directed Discharge Orders: Discharge ED (Routine); Ordered 01/08/23 Ordered By: Jake Mims Referrals: Maureen Eric DO [Primary Care Provider] - Discharge Diet: Usual diet Discharge Activity: Resume usual activity Patient Instructions: Weakness (ED), Fall Prevention (ED) Activity Restrictions/Additional Instructions: Thank you for visiting the emergency department. You were seen and evaluated for generalized weakness of the legs and frequent falls. The exact cause of your symptoms is unclear as discussed. Please follow-up with your primary care provider. Please ensure that your environment is safe for walking and walk with your assistive device at all times. Return for anything else that you are concerned about and feel needs emergency department evaluation. Coding Level of Care Code ED Daytime Babysitter for Melissa Rao
[2023-01-08 07:30] VITALS: BP 174/126; PULSE 65; RESP 18; O2SAT 96
[2023-01-08 08:01] LABS: Basophils # 0.1 10^3/uL (0.0-0.1); Basophils % 1.1 %; Eosinophils # 0.2 10^3/uL (0.0-0.8); Eosinophils % 2.5 %; Hematocrit 41.5 % (37.0-47.0); Hemoglobin 13.7 g/dL (11.5-15.3); Lymphocytes % 31.1 %; Mean Corpuscular Hemoglobin 29.8 pg (28.0-34.0); Mean Corpuscular Volume 90.4 fl (81-99); Mean Platelet Volume 9.3 fL (7.4-10.4); Monocytes # 0.4 10^3/uL (0.2-0.9); Monocytes % 6.6 %; Neutrophils # 3.82 10^3/uL (1.8-7.7); Neutrophils % 58.5 %; Nucleated Red Blood Cells % 0 %; Platelet Count 272 10^3/cmm (130-400); Red Blood Count 4.59 10^6/uL (4.1-5.3); Red Cell Distribution Width 13.2 % (12.1-15.1); White Blood Count 6.5 10^3/uL (4.0-10.0)
[2023-01-08 08:26] LABS: Anion Gap 14.5 (5-19); Blood Urea Nitrogen 5 mg/dL (8-23); Calcium 9.6 mg/dL (8.5-10.5); Carbon Dioxide 28 mmol/L (22-29); Chloride 96 mmol/L (98-107); Glucose 108 mg/dL (65-115); Magnesium 1.8 mg/dL (1.7-2.3); Osmolality Calculated 278 mOsm/kg (285-295); Potassium 3.5 mmol/L (3.5-5.1); Sodium 135 mmol/L (136-145)
[2023-01-08 08:30] VITALS: BP 197/115; PULSE 65; RESP 18; O2SAT 98
[2023-01-08 08:53] LABS: Add Urine Microscopic? NO; Charge for UA Resulting for Rev
--- NOTE | 2023-01-08 08:53 | PC.NURSE ---
PT AMBULATED APPROX 40FT WITH CANE. GAIT BELT APPLIED. PT NOTED TO HAVE SHUFFLING GAIT. PT BALANCE INTACT. LEGS DID NOT APPEAR WEAK.
[2023-01-08 09:05] LABS: Bilirubin Urine Neg (Negative); Blood Urine Neg (Negative); Glucose Urine UA Norm (Normal); Ketones Urine Negative (Negative); Leukocyte Esterase Urine Negative (Negative); Nitrate Urine Negative (Negative); Protein Urine Neg (Negative); Specific Gravity, Urine 1.005 (1.005-1.030); Urine Appearance Clear (CLEAR); Urine Color Colorless (Yellow); Urobilinogen Urine Norm (Negative); pH Urine 6.5 (5-7)
[2023-01-08 09:30] VITALS: BP 193/136; PULSE 65; RESP 18; O2SAT 95
[2023-01-08 10:37] VITALS: BP 195/102; PULSE 67; RESP 16; O2SAT 97
--- NOTE | 2023-01-09 08:29 | DCPLANNER ---
assessment manager had message to speak with patient about possible placement, embedded case manager called phone number [phone] - unable to speak with patient and unable to leave a voicemail.
--- NOTE | 2023-01-11 10:52 | PC.SOCIAL ---
01/10/23 This CM attempted to contact patient about placement, unable to reach her.
== END 2023-01-08 10:39 | disposition home or self-care (01) ==
PROVIDERS: Emergency Provider Emergency Medicine; PCP Family Medicine
DX: M62.81 Muscle weakness (generalized) (principal); R29.6 Repeated falls
CPT/HCPCS: 80048; 81003; 83735; 84443; 85025; 99283

== ENCOUNTER 2023-05-05 13:44 | Outpatient (CLI) | payer MEDICARE, MEDICAID, SELFPAY ==
--- NOTE | 2023-05-05 08:06 | MM_ITS ---
WS: [id number] BILATERAL SCREENING DIGITAL TOMOSYNTHESIS MAMMOGRAM WITH CAD HISTORY: Z00.00 - Encounter for general adult medical examination ... COMPARISON: 02/14/2020, 10/03/2018 and 09/28/2017 Bilateral CC and MLO views with tomosynthesis and synthetic mammography submitted. Computer aided det ection analyzed. Breast composition: There are scattered areas of fibroglandular density. No suspicious masses, microc alcifications or architectural distortion. IMPRESSION: MM/[place] [id number] BI-RADS: 1-Negative FOLLOW UP: 1 Year Follow-up
== END 2023-05-05 13:45 | disposition home or self-care (01) ==
LOC: MOBLMAM 13:47
PROVIDERS: PCP Family Medicine; Visit Provider Family Medicine
DX: Z12.31 Encounter for screening mammogram for malignant neoplasm of breast (principal)
CPT/HCPCS: 77063; 77067

== ENCOUNTER → 2023-06-02 15:42 | Outpatient (BNVA) | payer MEDICARE, MEDICAID, SELFPAY | PROVIDERS: PCP Family Medicine; Visit Provider Family Medicine | DX: N18.31 Chronic kidney disease, stage 3a (principal) | CPT/HCPCS: 80053 ==

== ENCOUNTER → 2023-08-11 12:16 | Outpatient (BNVA) | payer MEDICARE, MEDICAID, SELFPAY | PROVIDERS: PCP Family Medicine; Visit Provider Registered Nurse Neonatal Intensive Care | DX: R05.9 Cough, unspecified (principal); J06.9 Acute upper respiratory infection, unspecified | CPT/HCPCS: 87400; 87426 ==

== ENCOUNTER → 2023-10-03 12:51 | Outpatient (BNVA) | payer MEDICARE, MEDICAID, SELFPAY | PROVIDERS: PCP Family Medicine; Visit Provider Surgery | DX: K21.9 Gastro-esophageal reflux disease without esophagitis (principal); R13.10 Dysphagia, unspecified; K59.00 Constipation, unspecified | CPT/HCPCS: 99214 ==

== ENCOUNTER 2023-11-03 05:40 | Day surgery (SDC) | payer MEDICARE, MEDICAID, SELFPAY ==
[2023-11-03 05:56] VITALS: BP 179/102; PULSE 57; RESP 20; TEMP 36.1; O2SAT 95; BMI 41.8
[2023-11-03] MEDS: sodium chloride 0.9% 1,000 ML 30 ML IV (06:23)
--- NOTE | 2023-11-03 07:01 | P.ANESASSM_ITS ---
Pre-Anesthetic Assessment Height/Weight: Height 1.63 m Weight 110.677 kg Temp Pulse Resp BP Pulse Ox O2 Del Method 97 F L 57 L 20 H 179/102 95 Room Air 11/03/23 05:56 11/03/23 05:56 11/03/23 05:56 11/03/23 05:56 11/03/23 05:56 11/03/23 05:56 Preop Diagnosis: GERD Operation Date: 11/03/23 07:00 Proposed Procedures p EGD Dilation W/ Balloon(Not Applicable) - Jayy Zamora DO Familial anesthetic complications: none Was Beta Ming taken within 24 hours: N/A Was Clonidine taken within 24 hours: N/A Last intake: Intake Last Liquid Date 11/02/23 Last Liquid Time 19:30 Last Solid Date 11/02/23 Last Solid Time 17:00 Social Tobacco Exam alert, oriented x 3, clear to auscultation bilaterally and regular rate & rhythm Airway Submandibular: within normal limits Cervical ROM: within normal limits Mallampati: Class I Dentition: false Pulmonary Sleep Apnea CV/HEM None reported CKD stage III Hepatic None reported GI Gastroesophageal Reflux Disease Metabolic Morbid Ob[place] [facility] [place] Osteoarthritis/DJD Neuropsych Anxiety and Depression Anesthetic Plan ASA status: 3 Anesthesia: MAC Risk of > 500 ml blood loss (7ml/kg in children): No Medications/Allergies Home Medications Medication Instructions Recorded Confirmed Last Taken Type cholecalciferol (vitamin D3) 125 125 mcg PO DAILY #90 caps 07/06/21 11/03/23 11/02/23 Rx mcg (5,000 unit) capsule citalopram 40 mg tablet 40 mg PO DAILY #90 tabs 09/13/22 11/03/23 11/02/23 Rx doxepin 50 mg capsule 50 mg PO DAILY #90 caps 09/13/22 11/03/23 11/02/23 Rx wheeled walker #1 ea 09/17/22 11/03/23 11/02/23 Rx brexpiprazole 2 mg tablet 2 mg PO DAILY #30 tabs 12/13/22 11/03/23 11/02/23 Rx clonazepam 1 mg tablet 1 mg PO BID PRN anxiety #60 tabs 12/13/22 11/03/23 11/02/23 Rx fluticasone propionate 50 1 spray intranasal DAILY PRN nasal 08/12/23 11/03/2311/01/24 Rx mcg/actuation nasal congestion #16 grams spray,suspension (Flonase Allergy Relief) docusate sodium 100 mg capsule 100 mg PO DAILY 09/08/23 11/03/23 11/02/23 History (Colace) famotidine 40 mg tablet (Pepcid) 40 mg PO BID 09/08/23 11/03/23 11/02/23 History acetaminophen 325 mg tablet 325 mg PO QID 11/03/23 11/03/23 Unknown History (Tylenol) atorvastatin 10 mg tablet 10 mg PO DAILY 11/03/23 11/03/23 11/02/23 History bisacodyl 10 mg rectal suppository 10 mg AL DAILY PRN Constipation 11/03/23 11/03/23 Unknown History magnesium hydroxide 400 mg/5 mL 30 ml PO DAILY PRN Constipation 11/03/23 11/03/23 Unknown History oral suspension (Milk of Magnesia) ondansetron HCl 4 mg tablet 4 mg PO Q8H 11/03/23 11/03/23 Unknown History polyethylene glycol 3350 17 17 g PO DAILY PRN Constipation 11/03/23 11/03/23 Unknown History gram/dose oral powder (Miralax) sodium phosphates 19 gram-7 1 AL PRN Constipation 11/03/23 Unknown History gram/118 mL enema (Fleet Enema) Allergies Allergy/AdvReac Type Severity Reaction Status Date / Time Sulfa (Sulfonamide Allergy ADR-Dizzine Verified 11/01/23 13:28 Antibiotics) ss Current Medications Generic Name Dose Route Start Last Admin Trade Name Freq PRN Reason Stop Dose Admin Sodium Chloride 1,000 mls @ 30 mls/hr 11/03/23 06:15 11/03/23 06:23 Sodium Chloride 0.9% IV 30 mls/hr .Q24H EDILIA Administration PFSH Anesthesia Medical History Hepatic steatosis Symptomatic cholelithiasis Hx of gallstones SOLIS (obstructive sleep apnea) Chronic kidney disease Dyslipidemia Hyperglycemia Depression with anxiety Arthritis B/L knees, left ankle Open left ankle fracture Surgical History History of laparoscopic cholecystectomy History of colonoscopy (12/16/21) H/O hand surgery Right History of arthroplasty of left ankle Family History Mother Diabetes Father Cancer unknown type of cancer Social History Smoking and tobacco/nicotine status: current every day tobacco/nicotine user (pack and a half ) Second hand smoke exposure: Yes Alcohol intake: never Substance/Drug Use: never Adopted: No Caregiver/support person: Yes Lives independently: Yes Household members: family Housing: Manufactured/Mobile home Marital status: / Number of children: 0 Highest education level completed: High School Graduate service: Yes status: Retired branch: [employer] Current occupational status: retired Pets and animals: No Sexually active: No Do you think of yourself as: Straight/Heterosexual Current gender identity: Female Special isaac needs: No Data Anesthesia Cardiac Studies: No Data to Display
--- NOTE | 2023-11-03 07:01 | PM.HP ---
Providers/Chief Complaint Primary Care Provider: Maureen Eric DO Chief Complaint: K21.9 History of Present Illness Mallory Lynch is a 73 year old female Review of Systems General: Reports: 10 or more systems reviewed and unremarkable except in HPI and below Medications/Allergies Home Medications Medication Instructions Recorded Confirmed Last Taken Type cholecalciferol (vitamin D3) 125 125 mcg PO DAILY #90 caps 07/06/21 11/03/23 11/02/23 Rx mcg (5,000 unit) capsule citalopram 40 mg tablet 40 mg PO DAILY #90 tabs 09/13/22 11/03/23 11/02/23 Rx doxepin 50 mg capsule 50 mg PO DAILY #90 caps 09/13/22 11/03/23 11/02/23 Rx wheeled walker #1 ea 09/17/22 11/03/23 11/02/23 Rx brexpiprazole 2 mg tablet 2 mg PO DAILY #30 tabs 12/13/22 11/03/23 11/02/23 Rx clonazepam 1 mg tablet 1 mg PO BID PRN anxiety #60 tabs 12/13/22 11/03/23 11/02/23 Rx fluticasone propionate 50 1 spray intranasal DAILY PRN nasal 08/12/23 11/03/23 11/02/23 Rx mcg/actuation nasal congestion #16 grams spray,suspension (Flonase Allergy Relief) docusate sodium 100 mg capsule 100 mg PO DAILY 09/08/23 11/03/23 11/02/23 History (Colace) famotidine 40 mg tablet (Pepcid) 40 mg PO BID 09/08/23 11/03/23 11/02/23 History acetaminophen 325 mg tablet 325 mg PO QID 11/03/23 11/03/23 Unknown History (Tylenol) atorvastatin 10 mg tablet 10 mg PO DAILY 11/03/23 11/03/23 11/02/23 History bisacodyl 10 mg rectal suppository 10 mg WA DAILY PRN Constipation 11/03/23 11/03/23 Unknown History magnesium hydroxide 400 mg/5 mL 30 ml PO DAILY PRN Constipation 11/03/23 11/03/23 Unknown History oral suspension (Milk of Magnesia) ondansetron HCl 4 mg tablet 4 mg PO Q8H 11/03/23 11/03/23 Unknown History polyethylene glycol 3350 17 17 g PO DAILY PRN Constipation 11/03/23 11/03/23 Unknown History gram/dose oral powder (Miralax) sodium phosphates 19 gram-7 1 WA PRN Constipation 11/03/23 Unknown History gram/118 mL enema (Fleet Enema) Allergies Allergy/AdvReac Type Severity Reaction Status Date / Time Sulfa (Sulfonamide Allergy ADR-Dizzine Verified 11/01/23 13:28 Antibiotics) ss PFSH Acute PFSH: Medical History Hepatic steatosis Symptomatic cholelithiasis Hx of gallstones SOLIS (obstructive sleep apnea) Chronic kidney disease Dyslipidemia Hyperglycemia Depression with anxiety Arthritis B/L knees, left ankle Open left ankle fracture Surgical History History of laparoscopic cholecystectomy History of colonoscopy (12/16/21) H/O hand surgery Right History of arthroplasty of left ankle Family History Mother Diabetes Father Cancer unknown type of cancer Social History Smoking and tobacco/nicotine status: current every day tobacco/nicotine user (pack and a half ) Second hand smoke exposure: Yes Alcohol intake: never Substance/Drug Use: never Adopted: No Caregiver/support person: Yes Lives independently: Yes Household members: family Housing: Manufactured/Mobile home Marital status: / Number of children: 0 Highest education level completed: High School Graduate service: Yes status: Retired branch: [employer] Current occupational status: retired Pets and animals: No Sexually active: No Do you think of yourself as: Straight/Heterosexual Current gender identity: Female Special isaac needs: No Vitals/I&O/Wt Last Vital Signs Temp 97 F L 11/03/23 05:56 Pulse 57 L 11/03/23 05:56 Resp 20 H 11/03/23 05:56 BP 179/102 11/03/23 05:56 Pulse Ox 95 11/03/23 05:56 O2 Del Method Room Air 11/03/23 05:56 Weight last 48 hrs Weight 244 lb A&P Assessment and plan (1) GERD (gastroesophageal reflux disease): (2) Dysphagia: Plan EGD with possible dilation Attestations Medical Necessity Statement*: Home Coding Level of Care Code Acute Code for Chg Fwd Diagnoses GERD (gastroesophageal reflux disease) K21.9 Dysphagia R13.10
[2023-11-03 07:20] VITALS: BP 174/92; PULSE 65; RESP 12; TEMP 36.2; O2SAT 95
[2023-11-03 07:32] VITALS: BP 186/105; PULSE 59; RESP 18; O2SAT 100
[2023-11-03 07:40] VITALS: BP 180/100; PULSE 57; RESP 18; O2SAT 99
--- NOTE | 2023-11-03 14:53 | ANE.PACU2 ---
Inpatient post-anesthesia follow up: Airway intact: Yes Vital signs: Temperature 97.2 F Pulse Rate 57 Respiratory Rate 18 Blood Pressure 180/100 Pulse Oximetry 99 Oxygen Delivery Me thod Room Air Oxygen Flow Rate Fraction of Inspir ed Oxygen Hydration adequate: Yes Nausea and vomiting: No Pain level: 2 Mental status: Baseline
== END 2023-11-03 08:10 | disposition home or self-care (01) ==
PROVIDERS: PCP Family Medicine; Visit Provider Surgery
DX: K21.9 Gastro-esophageal reflux disease without esophagitis (principal); G47.33 Obstructive sleep apnea (adult) (pediatric); K29.50 Unspecified chronic gastritis without bleeding; E78.5 Hyperlipidemia, unspecified; F17.210 Nicotine dependence, cigarettes, uncomplicated; K44.9 Diaphragmatic hernia without obstruction or gangrene; G47.30 Sleep apnea, unspecified; N18.30 Chronic kidney disease, stage 3 unspecified; E66.01 Morbid (severe) obesity due to excess calories
CPT/HCPCS: 43239; 88305; 88342; J2704; J7030

== ENCOUNTER → 2023-11-25 11:16 | Outpatient (BNVA) | payer MEDICARE, MEDICAID, SELFPAY | PROVIDERS: PCP Family Medicine; Visit Provider Surgery | DX: Z09 Encounter for follow-up examination after completed treatment for conditions other than malignant neoplasm (principal); R10.13 Epigastric pain; K59.00 Constipation, unspecified | CPT/HCPCS: 99214 ==

== ENCOUNTER 2023-12-02 08:16 | Emergency (ER) | payer MEDICARE, MEDICAID, SELFPAY ==
[2023-12-02] VITALS (33 sets, daily range): BP systolic 123–181; BP diastolic 71–135; PULSE 59–84; RESP 17–26; TEMP 36.8; O2SAT 95–100; BMI 42.4
--- NOTE | 2023-12-02 08:18 | XR_ITS ---
WS: [id number] Portable AP upright chest, 12/02/2023 Clinical Data: cp Comparison: None. Findings: No nodules, masses or effusions are seen. The heart is normal. The pulmonary vascularity is not increased. No pneumonia or pneumothorax is seen. The aortic arch and descending thoracic aorta s how mild tortuosity. There are monitor leads on the chest wall. XR/XR chest 1V portable [id number] Impression: Atherosclerosis.
--- NOTE | 2023-12-02 08:18 | ECG_ITS ---
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 Measurements Intervals [place] Rate: 69 P: 39 [place]: 145 QRS: 11 QRSD: 86 T: 33 QT: 424 QTc: 455 Interpretive Statements SINUS RHYTHM WITH OCCASIONAL VENTRICULAR PREMATURE COMPLEXES NONSPECIFIC T-WAVE ABNORMALITY Compared to ECG 05/18/2022 08:40:20 Ventricular premature complex(es) now present T-wave abnormality now present Sinus bradycardia no longer present Electronically Signed On 12-02-2023 9:19:25 CDT by Law Romero M.D. [id number] f
--- NOTE | 2023-12-02 08:20 | ED_ITS ---
HPI - Chest Pain 2 General: Chief Complaint: Chest Pain Stated Complaint: chest pain Time Seen by Provider: 12/02/23 08:18 Source: patient and EMS Mode of arrival: EMS Limitations: no limitations History of Present Illness: 73-year-old female who is here from [facility] home has a history of hiatal hernia with gastric reflux. She states that after her last night of eating she is having a burning sensation in her chest that is been continuous since last night. States the pain is currently a 5 out of 10 denies any vomiting denies any fevers denies any worsening proving factors Associated symptoms: Deny abdominal pain, dyspnea, fever(s), nausea or vomiting Review of Systems 2 Const: Denies: fever(s), chills, body aches or change in appetite ENMT: Denies: throat pain or dental pain Card: Reports: chest pain Resp: Denies: dyspnea GI: Denies: abdominal pain, nausea, vomiting or diarrhea Musc: Denies: neck pain or back pain Skin/Breast: Denies: rash Neuro: Denies: headache(s) PFSH ED 2 PFSH: Medical History Hepatic steatosis Symptomatic cholelithiasis Hx of gallstones SOLIS (obstructive sleep apnea) Chronic kidney disease Dyslipidemia Hyperglycemia Depression with anxiety Arthritis B/L knees, left ankle Open left ankle fracture Surgical History History of laparoscopic cholecystectomy History of colonoscopy (12/16/21) H/O hand surgery Right History of arthroplasty of left ankle Family History Mother Diabetes Father Cancer unknown type of cancer Social History Smoking and tobacco/nicotine status: current every day tobacco/nicotine user (pack and a half ) Second hand smoke exposure: Yes Alcohol intake: never Substance/Drug Use: never Adopted: No Caregiver/support person: Yes Lives independently: Yes Household members: family Housing: Manufactured/Mobile home Marital status: / Number of children: 0 Highest education level completed: High School Graduate service: Yes status: Retired branch: [employer] Current occupational status: retired Pets and animals: No Sexually active: No Do you think of yourself as: Straight/Heterosexual Current gender identity: Female Special isaac needs: No Physical Exam 2 Const: COMMON NORMALS: no acute distress, patient oriented x3 and healthy appearing HENMT: COMMON NORMALS: normocephalic and atraumatic HEAD & SCALP: n ormocephalic and atraumatic Eye: COMMON NORMALS: conjunctivae normal CONJUNCTIVA: Yes conjunctivae normal Neck/C-Spine: COMMON NORMALS: full ROM and supple Chest: COMMONS NORMALS: normal inspection of the chest Resp: COMMON NORMALS: normal respiratory effort, No retractions, No use of accessory muscles and clear to auscultation bilaterally AUSCULTATION: clear to auscultation bilaterally Cardio: COMMON NORMALS: regular rate, regular rhythm and No murmurs present (Cardio) RATE: regular rate RHYTHM: regular rhythm GI: COMMON NORMALS: Normal to inspection, nondistended, normoactive bowel sounds present, Soft to palpation, non-tender and no masses PALPATION: Yes Soft to palpation Extremity: COMMON NORMALS: normal to inspection and full ROM Neuro: COMMON NORMALS: patient oriented x3, moves all extremities and no focal motor deficits Psych: COMMON NORMALS: mental status grossly normal, Normal thought process present and cooperative THOUGHT PROCESS: Normal thought process present Skin: COMMON NORMALS: no rashes or lesions noted and no wounds GENERAL SKIN EXAM: no rashes or lesions noted Course 2 Vital Signs: Vital signs: Vital Signs Temperature 98.2 F 12/02/23 08:17 Pulse Rate 73 12/02/23 10:00 Respiratory Rate 21 H 12/02/23 10:00 Blood Pressure 180/102 12/02/23 10:00 Pulse Oximetry 95 12/02/23 10:00 Oxygen Delivery Me thod Room Air 12/02/23 08:17 MDM - Chest Pain Medical Decision Making Patient presents here with chest pains atypical in nature is likely gastric related initial repeat troponins here are negative no signs of dissection or pulm embolism patient stable for discharge follow-up PCP return if worsening. Medical Records I reviewed the patient's medical records. Lab Data I reviewed the patient's lab results. 12/02/23 08:08 12/02/23 08:08 Radiology Impressions Chest X-Ray 12/02/23 08:18 Impression: Atherosclerosis. Laboratory Results WBC 6.09 10^3/uL (3.29-11.43) 12/02/23 08:08 RBC 4.26 10^6/uL (3.85-5.65) 12/02/23 08:08 Hgb 13.10 g/dL (11.27-16.99) 12/02/23 08:08 Hct 40.3 % (36-47) 12/02/23 08:08 MCV 94.6 fl (85-98) 12/02/23 08:08 MCH 30.8 pg (27-33) 12/02/23 08:08 MCHC 32.5 g/dL (30-55) 12/02/23 08:08 RDW 12.4 % (12.1-15.1) 12/02/23 08:08 Plt Count 228 10^3/cmm (157-399) 12/02/23 08:08 MPV 9.5 fL (7.4-10.4) 12/02/23 08:08 Neut % (Auto) 58.4 % 12/02/23 08:08 Lymph % (Auto) 33.3 % 12/02/23 08:08 [place] % (Auto) 5.4 % 12/02/23 08:08 Eos % (Auto) 2.1 % 12/02/23 08:08 Baso % (Auto) 0.5 % 12/02/23 08:08 Neut # (Auto) 3.55 10^3/uL (1.8-7.7) 12/02/23 08:08 Lymph # (Auto) 2.0 10^3/uL (0.8-4.8) 12/02/23 08:08 [place] # (Auto) 0.3 10^3/uL (0.2-0.9) 12/02/23 08:08 Eos # (Auto) 0.1 10^3/uL (0.0-0.8) 12/02/23 08:08 Baso # (Auto) 0.0 10^3/uL (0.0-0.1) 12/02/23 08:08 Nucleated RBC % (auto) 0 % 12/02/23 08:08 Nucleated RBCs # 0.0 /100WBC 12/02/23 08:08 Sodium 140 mmol/L (136-145) 12/02/23 08:08 Potassium 4.4 mmol/L (3.5-5.1) 12/02/23 08:08 Chloride 103 mmol/L (98-107) 12/02/23 08:08 Carbon Dioxide 27 mmol/L (22-29) 12/02/23 08:08 Anion Gap 14.4 (5-19) 12/02/23 08:08 BUN 12 mg/dL (8-23) 12/02/23 08:08 Creatinine 1.3 mg/dL (0.5-0.9) H 12/02/23 08:08 GFR Calculation Not Reportable 12/02/23 08:08 Glucose 265 mg/dL (65-115) H 12/02/23 08:08 Calculated Osmolality 299 mOsm/kg (285-295) H 12/02/23 08:08 Calcium 8.7 mg/dL (8.5-10.5) 12/02/23 08:08 Total Bilirubin 0.4 mg/dL (0.15-1.2) 12/02/23 08:08 AST 14 U/L (0-32) 12/02/23 08:08 ALT 11 U/L (0-33) 12/02/23 08:08 Alkaline Phosphatase 136 U/L (35-105) H 12/02/23 08:08 Troponin T Baseline 9 ng/L (0-10) 12/02/23 08:08 Troponin T 120 Minute 7.40 ng/L (0-10) 12/02/23 09:35 Delta Troponin T -1.60 ABS# (0-10) L 12/02/23 09:35 Total Protein 6.8 g/dL (6.6-8.7) 12/02/23 08:08 Albumin 3.8 g/dL (3.5-5.2) 12/02/23 08:08 Globulin 3.0 g/dL (1.3-4.6) 12/02/23 08:08 Lipase 21 U/L (13-60) 12/02/23 08:08 All radiology interpretation(s) finalized by discharge EKG Data EKG 1: I personally reviewed and interpreted this EKG as follows: EKG interpretation date: 12/02/23 EKG interpretation time: 08:21 Interpretation: nsr hr [address] or t wave abnormalities qrs 86 qtc 442 Discharge Plan Discharge Patient Disposition: Home Clinical Impression: Atypical chest pain Condition: Stable Prescriptions: No Action cholecalciferol (vitamin D3) 125 mcg (5,000 unit) capsule 125 mcg PO DAILY Qty: 90 0RF pantoprazole [Protonix] 40 mg tablet,delayed release (DR/EC) 40 mg PO BID 42 Days Qty: 84 1RF citalopram 40 mg tablet 40 mg PO DAILY Qty: 90 1RF clonazepam 1 mg tablet 1 mg PO BID PRN (Reason: anxiety) Qty: 60 2RF docusate sodium [Colace] 100 mg capsule 100 mg PO BEDTIME (DME) wheeled walker See Rx Instructions .Route .MEDSUPPLY Qty: 1 0RF Rx Instructions: As directed albuterol sulfate 90 mcg/actuation HFA aerosol inhaler 2 puff INHALATION Q4H PRN (Reason: Shortness Of Breath) doxepin 50 mg capsule 50 mg PO BEDTIME Rexulti 2 mg tablet 2 mg PO DAILY magnesium hydroxide [Milk of Magnesia] 400 mg/5 mL Suspension 30 ml PO DAILY PRN (Reason: Constipation) bisacodyl 10 mg Suppository 10 mg HI DAILY PRN (Reason: Constipation) atorvastatin 10 mg tablet 10 mg PO BEDTIME acetaminophen [Tylenol] 325 mg Tablet 325 mg PO Q6H PRN (Reason: Pain) Fleet Enema 19-7 gram/118 mL Enema 118 ml HI DAILY PRN (Reason: Constipation) polyethylene glycol 3350 [Miralax] 17 gram/dose powder 17 g PO DAILY Qty: 510 0RF Discharge Orders: Discharge ED (Routine); Ordered 12/02/23 Ordered By: Stacey Ortiz Referrals: Maureen Eric DO [Physician] - 1-3 days Discharge Diet: Advance as tolerated Discharge Activity: Resume usual activity Patient Instructions: Chest Pain (ED) Coding Level of Care Code ED Load Dropper for Melissa Rao
[2023-12-02 08:27] LABS: Basophils % 0.5 %; Eosinophils # 0.1 10^3/uL (0.0-0.8); Eosinophils % 2.1 %; Hematocrit 40.3 % (36-47); Lymphocytes % 33.3 %; Mean Corpuscular HGB Conc 32.5 g/dL (30-55); Mean Corpuscular Hemoglobin 30.8 pg (27-33); Mean Corpuscular Volume 94.6 fl (85-98); Mean Platelet Volume 9.5 fL (7.4-10.4); Monocytes # 0.3 10^3/uL (0.2-0.9); Monocytes % 5.4 %; Neutrophils # 3.55 10^3/uL (1.8-7.7); Neutrophils % 58.4 %; Nucleated Red Blood Cells % 0 %; Platelet Count 228 10^3/cmm (157-399); Red Blood Count 4.26 10^6/uL (3.85-5.65); Red Cell Distribution Width 12.4 % (12.1-15.1); White Blood Count 6.09 10^3/uL (3.29-11.43)
[2023-12-02] MEDS: aspirin 81 mg Chew Tablet 324 MG PO (08:38)
[2023-12-02] MEDS: lidocaine 2% viscous 15 ML, aluminum-mag hydrox-simethicon 30 ML, sucralfate oral liq 1 GM PO (08:39)
[2023-12-02 08:47] LABS: Alanine Aminotransferase 11 U/L (0-33); Albumin Level 3.8 g/dL (3.5-5.2); Alkaline Phosphatase 136 U/L (35-105); Blood Urea Nitrogen 12 mg/dL (8-23); Calcium 8.7 mg/dL (8.5-10.5); Carbon Dioxide 27 mmol/L (22-29); Chloride 103 mmol/L (98-107); Creatinine Clr Calc Pharmacy 47.9411; Glucose 265 mg/dL (65-115); Lipase 21 U/L (13-60); Osmolality Calculated 299 mOsm/kg (285-295); Sodium 140 mmol/L (136-145); Total Bilirubin 0.4 mg/dL (0.15-1.2); Total Protein 6.8 g/dL (6.6-8.7)
[2023-12-02 08:49] LABS: Troponin(5th) Baseline 9 ng/L (0-10)
[2023-12-02 08:50] LABS: Anion Gap 14.4 (5-19); Aspartate Amino Transferase 14 U/L (0-32); Potassium 4.4 mmol/L (3.5-5.1)
--- NOTE | 2023-12-02 09:51 | PC.PHAR ---
PT IS FROM [facility]
[2023-12-02] MEDS: sodium chloride 0.9% 1,000 ML 30 ML IV (10:05)
== END 2023-12-02 11:27 | disposition home or self-care (01) ==
PROVIDERS: Emergency Provider Emergency Medicine; PCP Family Medicine
DX: R07.89 Other chest pain (principal); F17.210 Nicotine dependence, cigarettes, uncomplicated; N18.9 Chronic kidney disease, unspecified; E78.5 Hyperlipidemia, unspecified
CPT/HCPCS: 71045; 80053; 83690; 84484; 85025; 93005; 96360; 99285; J7030

== ENCOUNTER → 2023-12-12 12:36 | Outpatient (BNVA) | payer MEDICARE, MEDICAID, SELFPAY | PROVIDERS: PCP Family Medicine; Visit Provider Surgery | DX: R10.13 Epigastric pain (principal); K21.9 Gastro-esophageal reflux disease without esophagitis; K59.00 Constipation, unspecified; K44.9 Diaphragmatic hernia without obstruction or gangrene | CPT/HCPCS: 74018; 99214 ==

== ENCOUNTER 2023-12-16 15:47 | Emergency (ER) | payer MEDICARE, MEDICAID, SELFPAY ==
--- NOTE | 2023-12-16 15:51 | CTR_ITS ---
PROCEDURE INFORMATION: Exam: CT Abdomen And Pelvis With Contrast Exam date and time: 12/16/2023 4:13 PM Age: 73 years old Clinical indication: Abdominal pain; Generalized; Prior surgery; Surgery date: 6+ months; Surgery type: Gb; Additional info: Abd pain TECHNIQUE: Imaging protocol: Computed tomography of the abdomen and pelvis with contrast. Radiation optimization: All CT scans at this facility use at least one of these dose optimization techniques: automated exposure control; mA and/or kV adjustment per patient size (includes targeted exams where dose is matched to clinical indication); or iterative reconstruction. Contrast material: OMNI 350; Contrast volume: 100 ml; Contrast route: INTRAVENOUS (IV); COMPARISON: CT abdomen pelvis w con* [id number] 12/08/2022 12:27 PM RADIATION DOSE METRICS: Total DLP (mGy-cm): 1195.13 FINDINGS: Lungs: Lung bases are clear. Diaphragm: A large hiatal hernia is present. Liver: Liver is enlarged measuring 17 cm. There is a diffuse decrease in hepatic parenchymal density, consistent with fatty infiltration. The liver is otherwise unremarkable. Gallbladder and bile ducts: Prior cholecystectomy. There is no evidence of biliary ductal dilation. Pancreas: The pancreas is normal. Spleen: The spleen demonstrates punctate calcifications, consistent with remote granulomatous organism exposure. The spleen is otherwise unremarkable. Adrenal glands: The adrenal glands are normal. Kidneys and ureters: There are multiple simple right renal cysts, as large as 3.6 cm. No follow-up is recommended. There is a simple cyst in the left kidney measuring 5 cm. No follow-up is recommended. The kidneys are otherwise unremarkable. There is no ureteral dilation. Stomach and bowel: No bowel obstruction or significant bowel wall thickening. There is mildly excessive colonic stool content. Appendix: A normal appendix is identified. Intraperitoneal space: No free fluid, fluid collections, or pneumoperitoneum. Vasculature: Portal venous system is patent. The arterial vasculature demonstrates diffuse moderate atherosclerotic calcification. No aortic aneurysms. Lymph nodes: There is no evidence of lymphadenopathy. Urinary bladder: The bladder is decompressed. Reproductive: Reproductive organs are unremarkable as visualized. Bones/joints: Mild multilevel degenerative changes of the spine, as manifested by multilevel anterior osteophytes and multilevel decrease in intervertebral disc space. No acute fracture, dislocation, or aggressive osseous lesion. Soft tissues: There is a fat-containing umbilical hernia. No acute body wall soft tissue findings. CT/CT abdomen pelvis w con* [id number] IMPRESSION: 1. No acute abdominopelvic pathology. 2. Hepatomegaly. 3. Hepatic steatosis. 4. Incidental findings as above. COMMENTS: Consistent with the [employer]'s Incidental Findings Committee white paper (J Am Paola Radiol 2018): Any incidental renal lesion less than 1 cm or classified as too small to characterize, or any incidental cystic renal lesion characterized as simple-appearing, is likely benign. No follow-up imaging is recommended for these lesions per consensus recommendations based on imaging criteria.
--- NOTE | 2023-12-16 15:52 | ED_ITS ---
HPI - Abdominal Pain 2 General: Chief Complaint: Abdominal Pain Stated Complaint: abd pain Time Seen by Provider: 12/16/23 15:48 Source: patient and EMS Mode of arrival: EMS Limitations: no limitations History of Present Illness: 73-year-old female states that she been having abdominal pain for last 2 to 3 weeks states mainly epigastric and right upper quadrant. She has had a cholecystectomy she rates the pain a 7 out of 10 currently she denies any vomiting denies any diarrhea she denies any fevers she has recently seen surgery 4 days ago in the clinic. She denies any chest pain currently Associated Symptoms: Denies chills, diarrhea, dysuria, fever(s), nausea and vomiting Review of Systems 2 Const: Denies: fever(s), chills, body aches or change in appetite ENMT: Denies: throat pain or dental pain Card: Denies: chest pain Resp: Denies: dyspnea GI: Reports: abdominal pain; Denies: nausea, vomiting or diarrhea : Denies: dysuria Musc: Denies: neck pain or back pain Skin/Breast: Denies: rash Neuro: Denies: headache(s) PFSH ED 2 PFSH: Medical History Hepatic steatosis Symptomatic cholelithiasis Hx of gallstones SOLIS (obstructive sleep apnea) Chronic kidney disease Dyslipidemia Hyperglycemia Depression with anxiety Arthritis B/L knees, left ankle Open left ankle fracture Surgical History History of laparoscopic cholecystectomy History of colonoscopy (12/16/21) H/O hand surgery Right History of arthroplasty of left ankle Family History Mother Diabetes Father Cancer unknown type of cancer Social History Smoking and tobacco/nicotine status: current every day tobacco/nicotine user Second hand smoke exposure: Yes Alcohol intake: never Substance/Drug Use: never Adopted: No Caregiver/support person: Yes Lives independently: Yes Household members: family Housing: Manufactured/Mobile home Marital status: / Number of children: 0 Highest education level completed: High School Graduate service: Yes status: Retired branch: [employer] Current occupational status: retired Pets and animals: No Sexually active: No Do you think of yourself as: Straight/Heterosexual Current gender identity: Female Special isaac needs: No Physical Exam 2 Const: COMMON NORMALS: no acute distress, patient oriented x3 and healthy appearing HENMT: COMMON NORMALS: normocephalic and atraumatic HEAD & SCALP: n ormocephalic and atraumatic Eye: COMMON NORMALS: Equal, round and reactive pupils present and EOMs intact bilaterally PUPIL: Yes Equal, round and reactive pupils present Neck/C-Spine: COMMON NORMALS: full ROM and supple Chest: COMMONS NORMALS: normal inspection of the chest and normal palpation of entire chest wall Resp: COMMON NORMALS: normal respiratory effort, No retractions, No use of accessory muscles and clear to auscultation bilaterally AUSCULTATION: clear to auscultation bilaterally Cardio: COMMON NORMALS: regular rate, regular rhythm and No murmurs present (Cardio) RATE: regular rate RHYTHM: regular rhythm GI: COMMON NORMALS: Normal to inspection, nondistended, normoactive bowel sounds present, Soft to palpation, non-tender and no masses PALPATION: Yes Soft to palpation Extremity: COMMON NORMALS: normal to inspection and full ROM Neuro: COMMON NORMALS: patient oriented x3, moves all extremities and no focal motor deficits Psych: COMMON NORMALS: mental status grossly normal, Normal thought process present and cooperative THOUGHT PROCESS: Normal thought process present Skin: COMMON NORMALS: no rashes or lesions noted and no wounds GENERAL SKIN EXAM: no rashes or lesions noted Course 2 Vital Signs: Vital signs: Vital Signs Temperature 97.8 F 12/16/23 15:58 Pulse Rate 69 12/16/23 15:58 Respiratory Rate 18 12/16/23 15:58 Blood Pressure 202/94 12/16/23 16:31 Pulse Oximetry 96 12/16/23 16:31 MDM - Abdominal Pain Medical Decision Making Patient presents with abdominal pain now resolved after pain meds her blood work here and CTs normal she has had some issues with chronic abdominal pain in the past she had recently seen Dr. Zamora x-rays appoint with him next month as well she is to follow-up with him as scheduled she stable for discharge return if worsening. Medical Records I reviewed the patient's medical records. Lab Data I reviewed the patient's lab results. 12/16/23 15:40 12/16/23 15:40 Labs/Radiology: Radiology Impressions Abdomen/Pelvis CT 12/16/23 15:51 IMPRESSION: 1. No acute abdominopelvic pathology. 2. Hepatomegaly. 3. Hepatic steatosis. 4. Incidental findings as above. COMMENTS: Consistent with the [employer] [employer]'s Incidental Findings Committee white paper (J Am Paola Radiol 2018): Any incidental renal lesion less than 1 cm or classified as too small to characterize, or any incidental cystic renal lesion characterized as simple-appearing, is likely benign. No follow-up imaging is recommended for these lesions per consensus recommendations based on imaging criteria. Laboratory Results WBC 7.78 10^3/uL (3.29-11.43) 12/16/23 15:40 RBC 4.18 10^6/uL (3.85-5.65) 12/16/23 15:40 Hgb 12.90 g/dL (11.27-16.99) 12/16/23 15:40 Hct 38.7 % (36-47) 12/16/23 15:40 MCV 92.6 fl (85-98) 12/16/23 15:40 MCH 30.9 pg (27-33) 12/16/23 15:40 MCHC 33.3 g/dL (30-55) 12/16/23 15:40 RDW 12.6 % (12.1-15.1) 12/16/23 15:40 Plt Count 236 10^3/cmm (157-399) 12/16/23 15:40 MPV 9.3 fL (7.4-10.4) 12/16/23 15:40 Neut % (Auto) 51.1 % 12/16/23 15:40 Lymph % (Auto) 38.0 % 12/16/23 15:40 Kendall % (Auto) 7.2 % 12/16/23 15:40 Eos % (Auto) 2.8 % 12/16/23 15:40 Baso % (Auto) 0.6 % 12/16/23 15:40 Neut # (Auto) 3.97 10^3/uL (1.8-7.7) 12/16/23 15:40 Lymph # (Auto) 3.0 10^3/uL (0.8-4.8) 12/16/23 15:40 Kendall # (Auto) 0.6 10^3/uL (0.2-0.9) 12/16/23 15:40 Eos # (Auto) 0.2 10^3/uL (0.0-0.8) 12/16/23 15:40 Baso # (Auto) 0.1 10^3/uL (0.0-0.1) 12/16/23 15:40 Nucleated RBC % (auto) 0 % 12/16/23 15:40 Nucleated RBCs # 0.0 /100WBC 12/16/23 15:40 Sodium 138 mmol/L (136-145) 12/16/23 15:40 Potassium 3.6 mmol/L (3.5-5.1) 12/16/23 15:40 Chloride 101 mmol/L (98-107) 12/16/23 15:40 Carbon Dioxide 27 mmol/L (22-29) 12/16/23 15:40 Anion Gap 13.6 (5-19) 12/16/23 15:40 BUN 9 mg/dL (8-23) 12/16/23 15:40 Creatinine 1.3 mg/dL (0.5-0.9) H 12/16/23 15:40 GFR Calculation Not Reportable 12/16/23 15:40 Glucose 177 mg/dL (65-115) H 12/16/23 15:40 Calculated Osmolality 289 mOsm/kg (285-295) 12/16/23 15:40 Calcium 8.9 mg/dL (8.5-10.5) 12/16/23 15:40 Total Bilirubin 0.3 mg/dL (0.15-1.2) 12/16/23 15:40 AST 13 U/L (0-32) 12/16/23 15:40 ALT 15 U/L (0-33) 12/16/23 15:40 Alkaline Phosphatase 129 U/L (35-105) H 12/16/23 15:40 Total Protein 7.4 g/dL (6.6-8.7) 12/16/23 15:40 Albumin 3.9 g/dL (3.5-5.2) 12/16/23 15:40 Globulin 3.5 g/dL (1.3-4.6) 12/16/23 15:40 Lipase 28 U/L (13-60) 12/16/23 15:40 All radiology interpretation(s) finalized by discharge EKG Data EKG 1: I personally reviewed and interpreted this EKG as follows: EKG interpretation date: 12/16/23 EKG interpretation time: 16:04 Interpretation: nsr hr [address] or t wave abnormalities qrs 86 qtc 442 Discharge Plan Discharge Patient Disposition: Home Clinical Impression: Abdominal pain Condition: Stable Prescriptions: New hydrocodone-acetaminophen 5-325 mg tablet 1 tab PO Q6H PRN (Reason: pain) Qty: 14 0RF ondansetron 4 mg tablet,disintegrating 4 mg PO Q6H PRN (Reason: nausea and vomiting) Qty: 14 0RF No Action cholecalciferol (vitamin D3) 125 mcg (5,000 unit) capsule 125 mcg PO DAILY Qty: 90 0RF pantoprazole [Protonix] 40 mg tablet,delayed release (DR/EC) 40 mg PO BID 42 Days Qty: 84 1RF cholecalciferol (vitamin D3) 125 mcg (5,000 unit) capsule 125 mcg PO DAILY metoclopramide HCl [Reglan] 5 mg tablet 5 mg PO QID citalopram 40 mg tablet 40 mg PO DAILY Qty: 90 1RF clonazepam 1 mg tablet 1 mg PO BID PRN (Reason: anxiety) Qty: 60 2RF docusate sodium [Colace] 100 mg capsule 100 mg PO BEDTIME (DME) wheeled walker See Rx Instructions .Route .MEDSUPPLY Qty: 1 0RF Rx Instructions: As directed albuterol sulfate 90 mcg/actuation HFA aerosol inhaler 2 puff INHALATION Q4H PRN (Reason: Shortness Of Breath) doxepin 50 mg capsule 50 mg PO BEDTIME Rexulti 2 mg tablet 2 mg PO DAILY magnesium hydroxide [Milk of Magnesia] 400 mg/5 mL Suspension 30 ml PO DAILY PRN (Reason: Constipation) bisacodyl 10 mg Suppository 10 mg OR DAILY PRN (Reason: Constipation) atorvastatin 10 mg tablet 10 mg PO BEDTIME acetaminophen [Tylenol] 325 mg Tablet 325 mg PO Q6H PRN (Reason: Pain) Fleet Enema 19-7 gram/118 mL Enema 118 ml OR DAILY PRN (Reason: Constipation) polyethylene glycol 3350 [Miralax] 17 gram/dose powder 17 g PO DAILY Qty: 510 0RF Discharge Orders: Discharge ED (Routine); Ordered 12/16/23 Ordered By: Stacey Ortiz Referrals: Araceli Wooten MD [Primary Care Provider] - Discharge Diet: Advance as tolerated Discharge Activity: Resume usual activity Patient Instructions: Abdominal Pain (ED), Opioid Safety Coding Level of Care Code ED Biology Specialist for Melissa Rao
--- NOTE | 2023-12-16 15:53 | ECG_ITS ---
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 Measurements Intervals [place] Rate: 67 P: 54 [place]: 136 QRS: 20 QRSD: 86 T: 21 QT: 426 QTc: 452 Interpretive Statements SINUS RHYTHM WITH MARKED SINUS ARRHYTHMIA Compared to ECG 12/02/2023 08:21:44 Ventricular premature complex(es) no longer present T-wave abnormality no longer present Electronically Signed On 12-16-2023 20:21:00 CDT by Law Romero M.D. [id number]
[2023-12-16 15:58] VITALS: BP 217/103; PULSE 69; RESP 18; TEMP 36.6
[2023-12-16 16:01] LABS: Basophils # 0.1 10^3/uL (0.0-0.1); Basophils % 0.6 %; Eosinophils # 0.2 10^3/uL (0.0-0.8); Eosinophils % 2.8 %; Hematocrit 38.7 % (36-47); Mean Corpuscular HGB Conc 33.3 g/dL (30-55); Mean Corpuscular Hemoglobin 30.9 pg (27-33); Mean Corpuscular Volume 92.6 fl (85-98); Mean Platelet Volume 9.3 fL (7.4-10.4); Monocytes # 0.6 10^3/uL (0.2-0.9); Monocytes % 7.2 %; Neutrophils # 3.97 10^3/uL (1.8-7.7); Neutrophils % 51.1 %; Nucleated Red Blood Cells % 0 %; Platelet Count 236 10^3/cmm (157-399); Red Blood Count 4.18 10^6/uL (3.85-5.65); Red Cell Distribution Width 12.6 % (12.1-15.1); White Blood Count 7.78 10^3/uL (3.29-11.43)
[2023-12-16] MEDS: iohexol 350 mg/mL 500 mL Btl (per mL) IV (16:13)
[2023-12-16 16:20] LABS: Alanine Aminotransferase 15 U/L (0-33); Albumin Level 3.9 g/dL (3.5-5.2); Alkaline Phosphatase 129 U/L (35-105); Anion Gap 13.6 (5-19); Aspartate Amino Transferase 13 U/L (0-32); Blood Urea Nitrogen 9 mg/dL (8-23); Calcium 8.9 mg/dL (8.5-10.5); Carbon Dioxide 27 mmol/L (22-29); Chloride 101 mmol/L (98-107); Creatinine Clr Calc Pharmacy 44.5801; Globulin 3.5 g/dL (1.3-4.6); Glucose 177 mg/dL (65-115); Lipase 28 U/L (13-60); Osmolality Calculated 289 mOsm/kg (285-295); Potassium 3.6 mmol/L (3.5-5.1); Sodium 138 mmol/L (136-145); Total Bilirubin 0.3 mg/dL (0.15-1.2); Total Protein 7.4 g/dL (6.6-8.7)
[2023-12-16] MEDS: ondansetron 2 mg/ML SDV 2 mL 4 MG IVP (16:22)
[2023-12-16] MEDS: HYDROmorphone 1 mg/mL INJ 1 mL 0.5 MG IVP (16:22)
[2023-12-16 16:31] VITALS: BP 202/94; O2SAT 96
[2023-12-16] MEDS: hyDRALAzine 20 mg/mL INJ 1 mL 10 MG IVP ×2 (17:24→19:03)
[2023-12-16 17:28] LABS: Add Urine Microscopic? YES; Bilirubin Urine Neg (Negative); Blood Urine Neg (Negative); Glucose Urine UA Norm (Normal); Ketones Urine Negative (Negative); Leukocyte Esterase Urine Negative (Negative); Nitrate Urine Negative (Negative); Protein Urine Neg (Negative); Specific Gravity, Urine 1.005 (1.005-1.030); Urine Appearance Clear (CLEAR); Urine Color Yellow (Yellow); Urobilinogen Urine Norm (Negative); pH Urine 6.5 (5-7)
[2023-12-16 17:31] VITALS: BP 191/163; PULSE 97; O2SAT 97
[2023-12-16 19:03] VITALS: PULSE 100; RESP 18; O2SAT 95
[2023-12-16 19:05] VITALS: BP 192/83
[2023-12-16 19:12] VITALS: BP 192/83; PULSE 100; RESP 18; O2SAT 94
== END 2023-12-16 19:11 | disposition home or self-care (01) ==
PROVIDERS: Emergency Provider Emergency Medicine; PCP Family Medicine
DX: R10.13 Epigastric pain (principal); R10.11 Right upper quadrant pain; N18.9 Chronic kidney disease, unspecified; E78.5 Hyperlipidemia, unspecified; Z72.0 Tobacco use
CPT/HCPCS: 74177; 80053; 81001; 83690; 85025; 93005; 96374; 96375; 96376; 99285; J0360; J1170; J2405; Q9967

== ENCOUNTER → 2024-01-09 12:32 | Outpatient (BNVA) | payer MEDICARE, MEDICAID, SELFPAY | PROVIDERS: PCP Family Medicine; Visit Provider Surgery | DX: R10.13 Epigastric pain (principal); K44.9 Diaphragmatic hernia without obstruction or gangrene | CPT/HCPCS: 99214 ==

== ENCOUNTER → 2024-03-12 12:40 | Outpatient (BNVA) | payer MEDICARE, MEDICAID, SELFPAY | PROVIDERS: PCP Family Medicine; Visit Provider Surgery | DX: R10.13 Epigastric pain (principal); K21.9 Gastro-esophageal reflux disease without esophagitis; K44.9 Diaphragmatic hernia without obstruction or gangrene | CPT/HCPCS: 99214 ==

== ENCOUNTER 2024-04-02 08:22 | Outpatient (CLI) | payer MEDICARE, MEDICAID, SELFPAY ==
--- NOTE | 2024-04-02 08:30 | FL_ITS ---
WS: [id number] FL barium swallow 99900 REASON FOR EXAM: Upper abdominal pain # OF SPOT FILMS: Multiple FINDINGS: Patient was examined in the standing AP and lateral projections, prone HUNT, and supine positions. Swallowing of barium was fluoroscopically monitored and multiple spot films obtained. The cervical esophagus is normal. The thoracic esophagus demonstrates near complete loss of the primary peristaltic wave with prolonged retention of moderate volumes of barium. There were intermittent episodes of significant tertiary contractions which forced retained contrast retrograde to the level of the thoracic inlet. There was a large hiatal hernia. Gross reflux was demonstrated in the supine position to the level of the cervical esophagus. FL/FL barium swallow 00700 IMPRESSION: Significant esophageal dysmotility. Achalasia type III. Large hiatal hernia with high-grade reflux to the level of the cervical esophag us.
== END 2024-04-02 08:23 | disposition home or self-care (01) ==
PROVIDERS: PCP Family Medicine; Visit Provider Surgery
DX: K21.9 Gastro-esophageal reflux disease without esophagitis (principal); K44.9 Diaphragmatic hernia without obstruction or gangrene; K22.0 Achalasia of cardia
CPT/HCPCS: 74220

== ENCOUNTER 2024-05-18 07:58 | Outpatient (CLI) | payer MEDICARE, MEDICAID, SELFPAY ==
--- NOTE | 2024-05-18 08:04 | MM_ITS ---
WS: [id number] SCREENING DIGITAL TOMOSYNTHESIS MAMMOGRAM WITH CAD HISTORY: SCREENING COMPARISON: 05/05/2023, 02/14/2020 Bilateral CC and MLO with tomosynthesis views submitted. Synthetic mammography reviewed. Computer aid ed detection analyzed. Breast composition: There are scattered areas of fibroglandular density. No suspicious masses, microc alcifications or architectural distortion. There are a few benign calcifications in the anterior RIGH T breast. MM/MM scr tomosynthesis 32080 IMPRESSION: BI-RADS: 2 - Benign. FOLLOW UP: 1 Year Follow-up
== END 2024-05-18 07:59 | disposition home or self-care (01) ==
LOC: RAD 07:58
PROVIDERS: PCP Family Medicine; Visit Provider Family Medicine
DX: Z12.31 Encounter for screening mammogram for malignant neoplasm of breast (principal); R92.323 Mammographic fibroglandular density, bilateral breasts; R92.1 Mammographic calcification found on diagnostic imaging of breast
CPT/HCPCS: 77063; 77067

== ENCOUNTER 2024-07-20 18:39 | Emergency (ER) | payer MEDICARE, MEDICAID, SELFPAY ==
--- NOTE | 2024-07-20 18:44 | ECG_ITS ---
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 Measurements Intervals [place] Rate: 67 P: 35 [place]: 134 QRS: 15 QRSD: 90 T: 29 QT: 411 QTc: 435 Interpretive Statements SINUS RHYTHM POSSIBLE RIGHT VENTRICULAR CONDUCTION DELAY [RSR (QR) IN V1/V2] MINIMAL ST DEPRESSION [0.025+ mV ST DEPRESSION] Compared to ECG 12/16/2023 16:04:12 ST (T wave) deviation now present Sinus arrhythmia no longer present Electronically Signed On 07-22-2024 20:10:18 CLOSING AGENT by Law Romero M.D. [id number]
--- NOTE | 2024-07-20 18:51 | W.ED.ABDPA2 ---
HPI - Abdominal Pain General: Chief Complaint: Abdominal Pain Stated Complaint: chest pain Time Seen by Provider: 07/20/24 18:40 History of Present Illness: Patient is a 73-year-old female that presents for with epigastric pain that is radiating up to her chest intermittently. Patient has a history that includes GERD, chronic kidney disease?stage III, dyslipidemia, atypical chest pain, hypertension. More recently patient has been under the care of Dr. Zamora for epigastric abdominal pain. She has had numerous visits dating back to August 2023. She is currently on pantoprazole twice daily and recently underwent an esophagram. She was diagnosed with a hiatal hernia and is slated to have follow-up with Dr. Zamora after the new year. Patient has been exposed to COVID but states that she had a negative COVID test this week. She denies any cough, congestion, shortness of breath, fevers, chills. The pain that she has is epigastric and intermittently radiates up into her chest. Patient states that this is similar to her prior episodes of epigastric pain. Associated Symptoms: Denies chills, constipation, diarrhea, fever(s), hematochezia, hematemesis, nausea and vomiting Related Data Home Medications Medication Instructions Recorded Confirmed docusate sodium 100 mg capsule 100 mg PO BEDTIME 09/08/23 03/12/24 (Colace) acetaminophen 325 mg tablet 325 mg PO Q6H PRN Pain 11/03/23 03/12/24 (Tylenol) atorvastatin 10 mg tablet 10 mg PO BEDTIME 11/03/23 03/12/24 bisacodyl 10 mg rectal suppository 10 mg FL DAILY PRN Constipation 11/03/23 03/12/24 magnesium hydroxide 400 mg/5 mL 30 ml PO DAILY PRN Constipation 11/03/23 03/12/24 oral suspension (Milk of Magnesia) sodium phosphates 19 gram-7 118 ml FL DAILY PRN Constipation 11/03/23 03/12/24 gram/118 mL enema (Fleet Enema) albuterol sulfate 90 mcg/actuation 2 puff inhalation Q4H PRN 12/02/23 03/12/24 aerosol inhaler Shortness Of Breath brexpiprazole 2 mg tablet (Rexulti) 2 mg PO DAILY 12/02/23 03/12/24 doxepin 50 mg capsule 50 mg PO BEDTIME 12/02/23 03/12/24 cholecalciferol (vitamin D3) 125 125 mcg PO DAILY 12/12/23 03/12/24 mcg (5,000 unit) capsule metoclopramide HCl 5 mg tablet 5 mg PO QID 12/12/23 03/12/24 (Reglan) Previous Rx's Medication Instructions Recorded cholecalciferol (vitamin D3) 125 125 mcg PO DAILY #90 caps 07/06/21 mcg (5,000 unit) capsule citalopram 40 mg tablet 40 mg PO DAILY #90 tabs 09/13/22 wheeled walker #1 ea 09/17/22 clonazepam 1 mg tablet 1 mg PO BID PRN anxiety #60 tabs 12/13/22 polyethylene glycol 3350 17 17 g PO DAILY #510 grams 11/03/23 gram/dose oral powder (Miralax) pantoprazole 40 mg tablet,delayed 40 mg PO BID 6 weeks #84 tabs 11/25/23 release (Protonix) hydrocodone 5 mg-acetaminophen 325 1 tab PO Q6H PRN pain #14 tabs 12/16/23 mg tablet ondansetron 4 mg disintegrating 4 mg PO Q6H PRN nausea and 12/16/23 tablet vomiting #14 tabs Allergies Allergy/AdvReac Type Severity Reaction Status Date / Time Sulfa (Sulfonamide Allergy ADR-Dizzine Verified 07/20/24 18:59 Antibiotics) ss Review of Systems General: Reports: 10 or more systems reviewed and unremarkable except in HPI and below Const: Denies: fever(s), chills, change in weight or fatigue Eyes: Denies: change in vision ENMT: Denies: odynophagia Card: Denies: chest pain Resp: Denies: dyspnea GI: Reports: abdominal pain; Denies: nausea, vomiting, hematemesis, dysphagia, diarrhea, constipation or hematochezia : Denies: flank pain or difficulty voiding Skin/Breast: Denies: rash, nipple discharge or breast mass Neuro: Denies: seizure-like activity Jovon/Lymph: Denies: easy bruising PFSH ED PFSH: Medical History Hepatic steatosis Symptomatic cholelithiasis Hx of gallstones SOLIS (obstructive sleep apnea) Chronic kidney disease Dyslipidemia Hyperglycemia Depression with anxiety Arthritis B/L knees, left ankle Open left ankle fracture Surgical History History of laparoscopic cholecystectomy History of colonoscopy (12/16/21) H/O hand surgery Right History of arthroplasty of left ankle Family History Mother Diabetes Father Cancer unknown type of cancer Social History Smoking and tobacco/nicotine status: former use of tobacco/nicotine Second hand smoke exposure: Yes Alcohol intake: never Substance/Drug Use: never Adopted: No Caregiver/support person: Yes Lives independently: Yes Household members: family Housing: Manufactured/Mobile home Marital status: / Number of children: 0 Highest education level completed: High School Graduate service: Yes status: Retired branch: [employer] Current occupational status: retired Pets and animals: No Sexually active: No Do you think of yourself as: Straight/Heterosexual Current gender identity: Female Special isaac needs: No Physical Exam Const: COMMON NORMALS: no acute distress, patient oriented x3 and alert GENERAL APPEARANCE: cooperative ORIENTATION/CONSCIOUSNESS: Yes awake, Yes oriented to person, Yes oriented to place and Yes oriented to time HENMT: COMMON NORMALS: normocephalic and atraumatic HEAD & SCALP: normocephalic and atraumatic FACE & SINUS: normal facial exam MOUTH: Normal oral and palatal mucosa present THROAT: posterior oropharynx normal Eye: COMMON NORMALS: Equal, round and reactive pupils present, EOMs intact bilaterally, conjunctivae normal and no scleral icterus GENERAL EYE: appearance normal, both eyes and all related structures ALIGNMENT: Yes alignment normal PERIORBITAL: periorbital findings normal CONJUNCTIVA: Yes conjunctivae normal PUPIL: Yes Equal, round and reactive pupils present Neck/C-Spine: COMMON NORMALS: full ROM GENERAL: Yes normal visual inspection Lymph: LYMPHATIC: no lymphadenopathy noted Chest: COMMONS NORMALS: normal inspection of the chest Breast/axilla inspection: Yes no chest deformity, asymmetry, normal contours, no nodules, masses, tenderness Resp: COMMON NORMALS: normal respiratory effort, No retractions, No use of accessory muscles and clear to auscultation bilaterally EFFORT & INSPECTION: Yes able to speak in complete sentences and Yes symmetric chest movement AUSCULTATION: clear to auscultation bilaterally Cardio: COMMON NORMALS: regular rate, regular rhythm and Peripheral pulses 2+ throughout RATE: regular rate RHYTHM: regular rhythm PERIPHERAL PULSES: Peripheral pulses 2+ throughout GI: COMMON NORMALS: Normal to inspection, nondistended, normoactive bowel sounds present, Soft to palpation, non-tender and No hepatosplenomegaly present INSPECTION: Yes normal to inspection AUSCULTATION: Yes normoactive bowel sounds PALPATION: Yes Soft to palpation and Yes No hepatosplenomegaly present RECTAL EXAM: deferred Extremity: COMMON NORMALS: normal to inspection GENERAL: Yes normal exam except as noted Neuro: COMMON NORMALS: patient oriented x3 SENSORIUM/ORIENTATION: Yes alert, Yes oriented to person, Yes oriented to place and Yes oriented to time CRANIAL NERVES: Yes CN normal except as noted Psych: COMMON NORMALS: mental status grossly normal, Normal thought process present, cooperative, activity/motor behavior normal, denies homicidal ideation and denies suicidal ideation THOUGHT PROCESS: Normal thought process present Skin: COMMON NORMALS: no rashes or lesions noted, no wounds and turgor normal GENERAL SKIN EXAM: no rashes or lesions noted and turgor normal Course Vital Signs: Vital signs: Vital Signs Temperature 98.7 F 07/20/24 18:55 Pulse Rate 66 07/20/24 19:18 Respiratory Rate 16 07/20/24 19:18 Blood Pressure 148/82 07/20/24 19:18 Pulse Oximetry 98 07/20/24 19:18 Oxygen Delivery Me thod Room Air 07/20/24 19:18 MDM - Abdominal Pain Medical Decision Making Patient is a 73-year-old female that presents to the emergency department with epigastric abdominal pain that intermittently radiates up into her chest. Patient states that she has had several episodes of this epigastric pain and is currently being evaluated by Dr. Zamora. She recently underwent an esophagram and was diagnosed with a hiatal hernia. She has follow-up that she is scheduling after the new year. Here in the emergency department I did an EKG which was completed at 1844. It reveals sinus rhythm with a ventricular beat of 67 beats a minute and a QTc of 426. Her EKG is unchanged from her baseline. There is no ectopy, ST elevation or abnormal T wave inversion. Patient also underwent a chest x-ray. She was treated with a GI cocktail. Her symptoms did improve. She is due for her pantoprazole and this was given here in the emergency department. Her chest x-ray revealed no acute findings. I did review the case with Dr. Meyers who recommended discharge back to her facility to follow-up as planned with Dr. Zamora. At this time no further diagnostics were warranted. Patient is agreeable and all questions were answered XR interpretation done by ED provider, pending radiology final review Discharge Plan Discharge Patient Disposition: Home Clinical Impression: Chronic gastroesophageal reflux disease Condition: Stable Prescriptions: No Action cholecalciferol (vitamin D3) 125 mcg (5,000 unit) capsule 125 mcg PO DAILY Qty: 90 0RF pantoprazole [Protonix] 40 mg tablet,delayed release (DR/EC) 40 mg PO BID 42 Days Qty: 84 1RF cholecalciferol (vitamin D3) 125 mcg (5,000 unit) capsule 125 mcg PO DAILY metoclopramide HCl [Reglan] 5 mg tablet 5 mg PO QID citalopram 40 mg tablet 40 mg PO DAILY Qty: 90 1RF clonazepam 1 mg tablet 1 mg PO BID PRN (Reason: anxiety) Qty: 60 2RF docusate sodium [Colace] 100 mg capsule 100 mg PO BEDTIME (DME) wheeled walker See Rx Instructions .Route .MEDSUPPLY Qty: 1 0RF Rx Instructions: As directed albuterol sulfate 90 mcg/actuation HFA aerosol inhaler 2 puff INHALATION Q4H PRN (Reason: Shortness Of Breath) doxepin 50 mg capsule 50 mg PO BEDTIME Rexulti 2 mg tablet 2 mg PO DAILY hydrocodone-acetaminophen 5-325 mg tablet 1 tab PO Q6H PRN (Reason: pain) Qty: 14 0RF ondansetron 4 mg tablet,disintegrating 4 mg PO Q6H PRN (Reason: nausea and vomiting) Qty: 14 0RF magnesium hydroxide [Milk of Magnesia] 400 mg/5 mL Suspension 30 ml PO DAILY PRN (Reason: Constipation) bisacodyl 10 mg Suppository 10 mg FL DAILY PRN (Reason: Constipation) atorvastatin 10 mg tablet 10 mg PO BEDTIME acetaminophen [Tylenol] 325 mg Tablet 325 mg PO Q6H PRN (Reason: Pain) Fleet Enema 19-7 gram/118 mL Enema 118 ml FL DAILY PRN (Reason: Constipation) polyethylene glycol 3350 [Miralax] 17 gram/dose powder 17 g PO DAILY Qty: 510 0RF Discharge Orders: Discharge ED (Routine); Ordered 07/20/24 Ordered By: Evans Arevalo Referrals: Araceli Wooten MD [Primary Care Provider] - Discharge Diet: Advance as tolerated Discharge Activity: Resume usual activity Patient Instructions: Pain Management, GERD (Gastroesophageal Reflux Disease) (ED) Coding Level of Care Code ED Mechanical Assembly Technician for Melissa Rao
--- NOTE | 2024-07-20 18:53 | XRR_ITS ---
PROCEDURE INFORMATION: Exam: XR Chest Exam date and time: 07/20/2024 7:28 PM Age: 73 years old Clinical indication: Cough and wheezing; Additional info: Wheezing, cough TECHNIQUE: Imaging protocol: Radiologic exam of the chest. Views: 2 views. COMPARISON: CR XR chest 1V portable [id number] 12/02/2023 8:29 AM FINDINGS: Lungs: Unremarkable. No consolidation. Pleural spaces: Unremarkable. No pleural effusion. No pneumothorax. Heart/Mediastinum: Unremarkable. No cardiomegaly. Bones/joints: Unremarkable. XR/XR chest 2V* [id number] IMPRESSION: No acute findings.
[2024-07-20 18:55] VITALS: PULSE 66; RESP 20; TEMP 37.1; O2SAT 97; BMI 30.9
[2024-07-20 19:18] VITALS: BP 148/82; PULSE 66; RESP 16; O2SAT 98
[2024-07-20] MEDS: lidocaine 2% viscous 15 ML, aluminum-mag hydrox-simethicon 30 ML, sucralfate oral liq 1 GM PO (19:23)
[2024-07-20] MEDS: pantoprazole 40 mg SDV IVP (20:00)
[2024-07-20 21:04] VITALS: BP 142/98; PULSE 65; RESP 22; O2SAT 97
== END 2024-07-20 21:08 | disposition home or self-care (01) ==
PROVIDERS: Emergency Provider Nurse Practitioner; PCP Family Medicine
DX: K21.9 Gastro-esophageal reflux disease without esophagitis (principal); Z87.891 Personal history of nicotine dependence; E78.5 Hyperlipidemia, unspecified; I12.9 Hypertensive chronic kidney disease with stage 1 through stage 4 chronic kidney disease, or unspecified chronic kidney disease; N18.30 Chronic kidney disease, stage 3 unspecified
CPT/HCPCS: 71046; 93005; 96374; 99284; J2470

== ENCOUNTER → 2024-08-13 10:55 | Outpatient (BNVA) | payer MEDICARE, MEDICAID, SELFPAY | PROVIDERS: PCP Family Medicine; Visit Provider Surgery | DX: R10.13 Epigastric pain (principal); K44.9 Diaphragmatic hernia without obstruction or gangrene; K21.9 Gastro-esophageal reflux disease without esophagitis | CPT/HCPCS: 99214 ==

== ENCOUNTER 2024-08-29 08:12 | Observation (INO) | payer MEDICARE, MEDICAID, SELFPAY ==
[2024-08-29] VITALS (8 sets, daily range): BP systolic 139–179; BP diastolic 79–101; PULSE 77–84; RESP 16–22; TEMP 36.5–37.3; O2SAT 90–93; BMI 41.1
--- NOTE | 2024-08-29 08:14 | CT_ITS ---
WS: [id number] CT HEAD NONCONTRAST HISTORY: possible stroke, left-sided weakness TECHNIQUE: Contiguous axial imaging performed through the brain. Bone and soft tissue windows. Sagittal and coronal reformats reviewed. All CT scans at [facility] use at least one of these dose optimization techniques: automated exposure control; mA and/or kV adjustment per patient size (includes targeted exams where dose is matched to clinical indication); or iterative reconstruction. DLP: 1088.56 mGy COMPARISON: None available. No acute intracranial hemorrhage, midline shift or mass effect. Moderate small vessel disease. Age-indeterminate but likely remote infarct posterior RIGHT parietal lobe. Moderate atrophy with small vessel disease. Ventricles: Normal size with no hydrocephalus. Paranasal sinuses: Mild mucoperiosteal thickening in the ethmoid air cells. Mastoid air cells: Well pneumatized. Cerumen in the external auditory canals. Calvarium and scalp: Skull is intact with no soft tissue edema or swelling. CT/CT head thrombolytic 75949 IMPRESSION: 1. No acute intracranial hemorrhage or edema. 2. Moderate atrophy and small vessel disease. Remote infarct posterior RIGHT p arietal lobe. Notified Carolyn Keene MD at 08/29/2024 8:29 AM.
--- NOTE | 2024-08-29 08:19 | ED_ITS ---
HPI - Neuro Symptoms/Deficit 2 General: Chief Complaint: Neuro Symptoms/Deficit Stated Complaint: Poss Stroke Time Seen by Provider: 08/29/24 08:19 History of Present Illness: 73-year-old female with a history of tob acco dependence, hyperlipidemia, chronic pain syndrome, chronic kidney disease, depression and GERD who presents emergency room with strokelike symptoms by ambulance from senior living. Apparently at around 645 she developed symptoms. This was witnessed by senior living staff. EMS reports by the time they arrived symptoms had resolved. On arrival here I examined her initially in the CT scanner and she has no deficits. No drift. No slurred speech. No facial droop. She tells me she thinks she may have had 1 of those mini strokes . No fever. No cough. Currently no altered mental status or confusion. No shortness of breath. No chest pain. She has been complaining of some epigastric abdominal pain. No nausea or vomiting Related Data Home Medications ?Medication ?Instructions ?Recorded ?Confirmed docusate sodium 100 mg capsule 100 mg PO BEDTIME 09/0808/29/24 (Colace) acetaminophen 325 mg tablet 325 mg PO Q6H PRN Pain 06/1708/29/24 (Tylenol) atorvastatin 10 mg tablet 10 mg PO BEDTIME 11/03/23 bisacodyl 10 mg rectal suppository 10 mg IN DAILY PRN Constipation 11/03/23 08/29/24 magnesium hydroxide 400 mg/5 mL 30 ml PO DAILY PRN Con stipation 11/03/23 08/29/24 oral suspension (Milk of Magnesia) sodium phosphates 19 gram-7 118 ml IN DAILY PRN Consti pation 11/03/23 08/29/24 gram/118 mL enema (Fleet Enema) albuterol sulfate 90 mcg/actuation 2 puff inhalation Q 4H PRN 12/02/23 08/29/24 aerosol inhaler Shortness Of Breath doxepin 50 mg capsule 50 mg PO BEDTIME 12/02/23 brexpiprazole 1 mg tablet (Rexulti) 1 mg PO DAILY 12/1608/29/24 ketoconazole 2 % shampoo 1 applic topical BID 5 08/29/24 loperamide 2 mg capsule 2 mg PO PRN PRN Constipation 08/29/24 08/29/24 Previous Rx's ?Medication ?Instructions ?Recorded citalopram 40 mg tablet 40 mg PO DAILY #90 tabs 08/26 clonazepam 1 mg tablet 1 mg PO BID PRN anxiety #60 tabs 12/13/22 polyethylene glycol 3350 17 17 g PO DAILY #510 grams 0 11/03/23 gram/dose oral powder (Miralax) pantoprazole 40 mg tablet,delayed 40 mg PO BID 6 weeks #84 tabs 11/25/23 release (Protonix) hydrocodone 5 mg-acetaminophen 325 1 tab PO Q6H PRN pa in #14 tabs 12/16/23 mg tablet ondansetron 4 mg disintegrating 4 mg PO Q6H PRN nausea and 12/16/23 tablet vomiting #14 tabs Allergies Allergy/AdvReac Type Severity Reaction Status Date / Time Sulfa (Sulfonamide Allergy ADR-Dizzine Verified 08/13/24 11:02 Antibiotics) ss Review of Systems 2 Narrative: Constitutional symptoms: Negative except as documented in HPI. Skin symptoms: Negative except as documented in HPI. Eye symptoms: Negative except as documented in HPI. ENMT symptoms: Negative except as documented in HPI. Respiratory symptoms: Negative except as documented in HPI. Cardiovascular symptoms: Negative except as documented in HPI. Gastrointestinal symptoms: Negative except as documented in HPI. Genitourinary symptoms: Negative except as documented in HPI. Musculoskeletal symptoms: Negative except as documented in HPI. Neurologic symptoms: Negative except as documented in HPI. Psychiatric symptoms: Negative except as documented in HPI. Endocrine symptoms: Negative except as documented in HPI. PFSH ED 2 PFSH: Medical History Hepatic steatosis Symptomatic cholelithiasis Hx of gallstones SOLIS (obstructive sleep apnea) Chronic kidney disease Dyslipidemia Hyperglycemia Depression with anxiety Arthritis B/L knees, left ankle Open left ankle fracture Surgical History History of laparoscopic cholecystectomy History of colonoscopy (12/16/21) H/O hand surgery Right History of arthroplasty of left ankle Family History Mother Diabetes Father Cancer unknown type of cancer Social History Smoking and tobacco/nicotine status: former use of tobacco/nicotine Second hand smoke exposure: Yes Alcohol intake: never Substance/Drug Use: never Adopted: No Caregiver/support person: Yes Lives independently: Yes Household members: family Housing: Manufactured/Mobile home Marital status: / Number of children: 0 Highest education level completed: High School Graduate service: Yes status: Retired branch: [employer] Current occupational status: retired Pets and animals: No Sexually active: No Do you think of yourself as: Straight/Heterosexual Current gender identity: Female Special isaac needs: No Physical Exam 2 Narrative: EXAM NARRATIVE: General: Alert, no acute distress. Skin: Warm, dry. Head: Normocephalic, atraumatic. Neck: Supple, trachea midline. Eye: Extraocular movements are intact. Ears, nose, mouth and throat: mucosa moist. Cardiovascular: Regular, Normal peripheral perfusion. Respiratory: Lungs are clear to auscultation, respirations are non-labored, breath sounds are equal, Symmetrical chest wall expansion. Gastrointestinal: Soft, Nontender, Non distended Musculoskeletal: Normal ROM, no deformity. Neurological: Alert and oriented, No focal neurological deficit observed. Psychiatric: Cooperative, appropriate mood & affect. Course 2 Vital Signs: Vital signs: Vital Signs Temperature 98.2 F 08/29/24 08:25 Pulse Rate 81 08/29/24 08:53 Respiratory Rate 20 H 08/29/24 08:25 Blood Pressure 161/99 08/29/24 08:25 Pulse Oximetry 91 08/29/24 08:53 Oxygen Delivery Me thod Room Air 08/29/24 08:25 MDM - Neuro Symptoms/Deficit Medical Decision Making Medical decision making: Differential diagnosis for patient with focal neurologic deficit(s) includes but not limited to and based on the above HPI, review of systems and physical exam: ischemic stroke, hemorrhagic stroke and embolic stroke secondary to atrial fibrillation), TIA, Ricketts's palsey, metabolic encephalopathy with previous stroke. Orders placed to evaluate differential diagnosis based on the above differential, HPI and physical exam NIH Stroke Scale/Score (NIHSS) from [employer] on 08/29/2024 All calculations should be rechecked by clinician prior to use RESULT SUMMARY: 0 points NIH Stroke Scale INPUTS: 1A: Level of consciousness ?> 0 = Alert; keenly responsive 1B: Ask month and age ?> 0 = Both questions right 1C: 'Blink eyes' & 'squeeze hands' ?> 0 = Performs both tasks 2: Horizontal extraocular movements ?> 0 = Normal 3: Visual morris ?> 0 = No visual loss 4: Facial palsy ?> 0 = Normal symmetry 5A: Left arm motor drift ?> 0 = No drift for 10 seconds 5B: Right arm motor drift ?> 0 = No drift for 10 seconds 6A: Left leg motor drift ?> 0 = No drift for 5 seconds 6B: Right leg motor drift ?> 0 = No drift for 5 seconds 7: Limb Ataxia ?> 0 = No ataxia 8: Sensation ?> 0 = Normal; no sensory loss 9: Language/aphasia ?> 0 = Normal; no aphasia 10: Dysarthria ?> 0 = Normal 11: Extinction/inattention ?> 0 = No abnormality CT head: No acute intracranial process. no intracranial hemorrhage, no evidence of infarct. no evidence of acute fracture.This was reviewed and interpreted by myself the ER physician. Consultation: I spoke with Dr. Mackey who is on-call for neurology. He examined the patient. He agrees NIH is 0 at this time but recommends admission for cardiac monitoring and stroke prevention optimization. EKG: Time 8:49 AM. Rate 82. Normal sinus rhythm, No ST-T changes, no ectopy, normal IN & QRS intervals, This was reviewed and interpreted by myself the ER physician at 8:52 AM Lab Review: Laboratory results were reviewed and interpreted by myself the emergency room physician. No leukocytosis. No anemia. Mild elevation in her creatinine. This is at or below her baseline. CTA of the head and neck: N no high-grade carotid artery stenosis. There is some plaque with stenosis bilaterally throughout the carotid cavernous sinuses. No occlusion within the [place] of [place]. No mass. This was reviewed and interpreted by myself the emergency room physician. I also reviewed the radiology report. I reviewed the patient's medical record. Reexamination: Patient remained stable. No increased work of breathing. No altered mental status. No focal motor deficits. Consultation: I spoke with Dr. Gooden who is on-call for the hospitalist service who agrees to admission Assessment and plan: TIA -I discussed the patient with the hospitalist on-call who is admitting the patient. - Discussed findings and plan with patient. Answered any questions. - All laboratory values were reviewed and interpreted personally by myself, the ER physician - All imaging was reviewed and interpreted personally by myself, the ER physician. - Evaluation and treatment of this problem were appropriate in the emergency setting Lab Data 08/29/24 08:29 08/29/24 08:[address] 08/29/24 08:14 IMPRESSION: 1. No acute intracranial hemorrhage or edema. 2. Moderate atrophy and small vessel disease. Remote infarct posterior RIGHT parietal lobe. Notified Carolyn Keene MD at 08/29/2024 8:29 AM. Head/Neck CTA 08/29/24 09:03 IMPRESSION: 1. No high-grade cervical carotid artery stenosis. Mild plaque at the bifurcations. 2. Advanced plaque with stenosis bilaterally through the carotid cavernous sinuses. Stenosis greater than 60%. 3. No occlusion within the [place] of [place]. No aneurysm. Laboratory Results WBC 6.20 10^3/uL (3.29-11.43) 08/29/24 08: RBC 4.05 10^6/uL (3.85-5.65) 08/29/24 08:29 Hgb 12.40 g/dL (11.27-16.99) 08/29/24 08: Hct 37.9 % (36-47) 08/29/24 08: MCV 93.6 fl (85-98) 08/29/24 08: MCH 30.6 pg (27-33) 08/29/24 08: MCHC 32.7 g/dL (30-55) 08/29/24 08: RDW 12.6 % (12.1-15.1) 08/29/24 08: Plt Count 167 10^3/cmm (157-399) 08/29/24 08: MPV 9.2 fL (7.4-10.4) 08/29/24 08: Neut % (Auto) 85.4 % 08/29/24 08: Lymph % (Auto) 8.1 % 08/29/24 08:29 Waldo % (Auto) 5.6 % 08/29/24 08: Eos % (Auto) 0.3 % 08/29/24 08: Baso % (Auto) 0.3 % 08/29/24 08: Neut # (Auto) 5.29 10^3/uL (1.8-7.7) 08/29/24 08: Lymph # (Auto) 0.5 10^3/uL (0.8-4.8) L 08/29/24 08: Waldo # (Auto) 0.4 10^3/uL (0.2-0.9) 08/29/24 08: Eos # (Auto) 0.0 10^3/uL (0.0-0.8) 08/29/24 08: Baso # (Auto) 0.0 10^3/uL (0.0-0.1) 08/29/24 08: Nucleated RBC % (auto) 0 % 08/29/24: Nucleated RBCs # 0.0 /100WBC 08/29/24 08: PT 13.40 SECONDS (12.1-14.9) 08/29/24: INR 0.96 (0.8-1.2) 08/29/24: APTT 29.5 SECONDS (23.9-36.7) 08/29/24 08: Sodium 136 mmol/L (136-145) 08/29/24 08: Potassium 3.8 mmol/L (3.5-5.1) 08/29/24 08: Chloride 99 mmol/L (98-107) 08/29/24 08: Carbon Dioxide 25 mmol/L (22-29) 08/29/24 08: Anion Gap 15.8 (5-19) 08/29/24: BUN 9 mg/dL (8-23) 08/29/24 08: Creatinine 1.2 mg/dL (0.5-0.9) H 08/29/24 08: GFR Calculation Not Reportable 08/29/24: Glucose 200 mg/dL (65-115) H 08/29/24 08: POC Glucose 196 mg/dL (70-110) H 08/29/24 08: Calculated Osmolality 286 mOsm/kg (285-295) 08/29/24: Calcium 9.0 mg/dL (8.5-10.5) 08/29/24 08: Total Bilirubin 0.5 mg/dL (0.15-1.2) 08/29/24 08:29 AST 14 U/L (0-32) 08/29/24 08:29 ALT 11 U/L (0-33) 08/29/24 08:29 Alkaline Phosphatase 121 U/L (35-105) H 08/29/24 08:29 Total Protein 6.6 g/dL (6.6-8.7) 08/29/24 08:29 Albumin 3.6 g/dL (3.5-5.2) 08/29/24 08:29 Globulin 3.0 g/dL (1.3-4.6) 08/29/24 08:29 All radiology interpretation(s) finalized by discharge Discharge Plan Discharge Patient Disposition: Admitted As Inpatient Clinical Impression: Transient cerebral ischemia Condition: Stable Coding Level of Care Code ED Line Person for Melissa Rao
[2024-08-29 08:26] LABS: Glucose Point of Care 196 mg/dL (70-110)
[2024-08-29 08:35] LABS: Basophils % 0.3 %; Eosinophils % 0.3 %; Hematocrit 37.9 % (36-47); Lymphocytes # 0.5 10^3/uL (0.8-4.8); Lymphocytes % 8.1 %; Mean Corpuscular HGB Conc 32.7 g/dL (30-55); Mean Corpuscular Hemoglobin 30.6 pg (27-33); Mean Corpuscular Volume 93.6 fl (85-98); Mean Platelet Volume 9.2 fL (7.4-10.4); Monocytes # 0.4 10^3/uL (0.2-0.9); Monocytes % 5.6 %; Neutrophils # 5.29 10^3/uL (1.8-7.7); Neutrophils % 85.4 %; Nucleated Red Blood Cells % 0 %; Platelet Count 167 10^3/cmm (157-399); Red Blood Count 4.05 10^6/uL (3.85-5.65); Red Cell Distribution Width 12.6 % (12.1-15.1)
[2024-08-29 08:49] LABS: INR 0.96 (0.8-1.2); Partial Thromboplastin Time 29.5 SECONDS (23.9-36.7)
--- NOTE | 2024-08-29 08:49 | ECG_ITS ---
[facility]29 Pat Name: Mallory Lynch Department: Room: Gender: Female Blanket Folder: : [phone] Requested By: Carolyn Butcher Order Number: [id number] Adam MD: Law Romero M.D. Measurements Intervals [place] Rate: 82 P: 42 WI: 121 QRS: 8 QRSD: 86 T: 19 QT: 390 QTc: 458 Interpretive Statements SINUS RHYTHM LOW QRS VOLTAGE IN PRECORDIAL LEADS [QRS DEFLECTION < 1.0 mV IN CHEST LEADS] LEFT VENTRICULAR HYPERTROPHY AND ST-T CHANGE [VOLTAGE CRITERIA PLUS ST/T ABNORMALITY] Compared to ECG 07/20/2024 18:44:26 Low QRS voltage now present Left ventricular hypertrophy now present ST (T wave) deviation still present Electronically Signed On 08-30-2024 22:00:22 LAP REGULATOR by Law Romero M.D. [email or web address]
[2024-08-29 08:55] LABS: Alanine Aminotransferase 11 U/L (0-33); Albumin Level 3.6 g/dL (3.5-5.2); Alkaline Phosphatase 121 U/L (35-105); Anion Gap 15.8 (5-19); Aspartate Amino Transferase 14 U/L (0-32); Blood Urea Nitrogen 9 mg/dL (8-23); Carbon Dioxide 25 mmol/L (22-29); Chloride 99 mmol/L (98-107); Creatinine Clr Calc Pharmacy 51.0866; Glucose 200 mg/dL (65-115); Osmolality Calculated 286 mOsm/kg (285-295); Potassium 3.8 mmol/L (3.5-5.1); Sodium 136 mmol/L (136-145); Total Bilirubin 0.5 mg/dL (0.15-1.2); Total Protein 6.6 g/dL (6.6-8.7)
--- NOTE | 2024-08-29 09:03 | CT_ITS ---
WS: [id number] CT ANGIOGRAM CEREBRAL AND CAROTID ARTERIES HISTORY: Possible stroke TECHNIQUE: CT angiogram is performed of the carotid and cerebral arteries. During arterial injection imaging is obtained from the skull vertex to the aortic arch in 1.25 mm imaging. Coronal and sagittal reformats are submitted. Additional multi planar reformats of the carotid and cerebral arteries are submitted, MIP imaging also reviewed. NASCET criteria utilized. All CT scans at [facility] use at least one of these dose optimization techniques: automated exposure control; mA and/or kV adjustment per patient size (includes targeted exams where dose is matched to clinical indication); or iterative reconstruction. CONTRAST: Omnipaque 350; 100 mL IV. DLP: 424.51 mGy.cm COMPARISON: None available. Carotid Angiogram: Right carotid: Common carotid artery: Arises normally from the innominate artery. No significant plaque or stenosis. Internal carotid artery: Mild plaque at the bifurcation. No stenosis. External carotid artery: Patent. Left carotid: Common carotid artery: Arises normally from the aorta. No significant plaque or stenosis. Internal carotid artery: No plaque or stenosis. External carotid artery: Patent. Right vertebral artery: Plaque in the proximal RIGHT vertebral artery causing 50% stenosis. Otherwise patent. Dominant RIGHT vertebral artery. Left vertebral artery: Small caliber but patent LEFT vertebral artery. LEFT vertebral artery arises directly from the arch. Subclavian arteries: No stenosis or significant abnormality. Upper thorax: Normal. Thyroid gland: Normal. Osseous structures: Unremarkable. CEREBRAL ANGIOGRAM: Intracranial vertebral arteries: Normal with no significant atherosclerosis. Basilar artery: No significant stenosis or occlusion. No aneurysm. Intracranial Internal carotid arteries: Scattered plaque through the carotid cavernous sinuses. Stenosis estimated at 60% or greater bilaterally but greater on the RIGHT. Middle cerebral arteries: Normal. Anterior cerebral arteries and ACOM: Normal. Posterior cerebral arteries and PCOM's: Normal. Dural venous sinuses are normally enhancing. Mastoid air cells: Normal. Paranasal sinuses: Mild ethmoid air cell disease. Calvarium: Normal. CT/CT angio headneck* [id number] IMPRESSION: 1. No high-grade cervical carotid artery stenosis. Mild plaque at the bifurcat ions. 2. Advanced plaque with stenosis bilaterally through the carotid cavernous sin uses. Stenosis greater than 60%. 3. No occlusion within the [place] of [place]. No aneurysm.
--- NOTE | 2024-08-29 09:10 | PC.PHAR ---
patient is from [facility], med list in chart
[2024-08-29] MEDS: iohexol 350 mg/mL 500 mL Btl (per mL) IV (09:27)
--- NOTE | 2024-08-29 09:58 | P.CONIM_ITS ---
Providers/Reason For Consult 2 Consulting Physician/Specialty*: Duran Mackey MD neurology and epilepsy Reason for Consult*: Acute care/code stroke emergency department room #10 Primary Care Provider: Araceli Wooten MD History of Present Illness History of Present Illness Mallory Lynch is a 73 year old female with a history of obstructive sleep apnea, stage IIIa chronic kidney disease, osteoarthritis of the knees bilaterally, dyslipidemia, depression and anxiety, and hyperglycemia. The patient resides in a skilled nursing. According to the patient around 7 AM on 08/29/2024 she began experiencing acute onset of shortness of breath associated with blurred vision and inability to stand up. The patient stated the symptoms lasted for few minutes and resolved but then returned. Patient was brought to [facility] emergency department. Code stroke was initiated at 8:11 AM reporting patient was 5 minutes out from the emergency department. In the emergency room the patient's symptoms resolved. NIH score = 0. Point of contact glucose Accu-Chek [address] revealed no acute findings. There was report of moderate atrophy and small vessel ischemic changes and remote right posterior parietal lobe infarction. CT angiogram of the head and neck revealed advanced plaque with stenosis bilaterally through the carotid cavernous sinuses stenosis greater than 60%. Since the patient's symptoms resolved in the emergency department and NIH score =0, the patient was not a candidate for intravenous thrombolytics and no intravenous thrombolytics were administered. Drug allergies: Sulfa (sulfonamide antibiotics) which resulted in dizziness Current medications: Tylenol 325 mg p.o. every 6 hours as needed for pain Albuterol sulfate 2 puffs every 4 hours as needed for shortness of Breath Lipitor 10 mg p.o. nightly Bisacodyl 10 mg p.o. daily as needed for constipation Rexulti 10 mg p.o. daily Celexa 40 mg p.o. daily Clonazepam 1 mg p.o. twice daily as needed for anxiety Colace 100 mg p.o. nightly Doxepin 50 mg p.o. nightly Fleets enema 118 mL daily as needed constipation Hydrocodone/acetaminophen 1 p.o. every 6 hours as needed for pain Loperamide 2 mg p.o. as needed for constipation Magnesium hydroxide (Milk of Magnesia) 30 mL p.o. daily as needed constipation Zofran 4 mg p.o. every 6 hours as needed for nausea vomiting Protonic 40 mg p.o. twice daily MiraLAX 17 g p.o. daily Past medical history: Hiatal hernia Gastroesophageal reflux disease Constipation Dysphagia Seborrheic dermatitis Epigastric pain Gait instability Low back pain Status post cholecystectomy via laparoscopic procedure Pancreatic abnormality Mass of the pancreas Stage IIIa chronic kidney disease Osteoarthritis of the knees bilateral Obstructive sleep apnea History of colon polyp Nicotine dependence Marijuana use Hypoglycemia Vitamin D deficiency Dyslipidemia Depression and anxiety Habits: The patient reports smoking 4 cigarettes a week and smoking 1 marijuana joint a week when she visits her family Family history: Remarkable for mother, father and sister with heart disease Social history: The patient resides in a skilled nursing Review of Systems 2 General: Reports: 10 or more systems reviewed and unremarkable except in HPI and below GI: Reports: abdominal pain and constipation Musc: Reports: muscle weakness (Chronic) Medications/Allergies Home Medications ?Medication ?Instructions ?Recorded ?Confirmed ?Last Taken ?Type citalopram 40 mg tablet 40 mg PO DAILY #90 tabs 08/2608/29/24 11/02/23 Rx clonazepam 1 mg tablet 1 mg PO BID PRN anxiety #60 tabs 12/13/22 08/29/24 11/02/23 Rx docusate sodium 100 mg capsule 100 mg PO BEDTIME 09/0808/29/24 11/02/23 History (Colace) acetaminophen 325 mg tablet 325 mg PO Q6H PRN Pain 06/1708/29/24 Unknown History (Tylenol) atorvastatin 10 mg tablet 10 mg PO BEDTIME 11/03/2311/02/23 History bisacodyl 10 mg rectal suppository 10 mg AL DAILY PRN Constipation 11/03/23 08/29/24 Unknown History magnesium hydroxide 400 mg/5 mL 30 ml PO DAILY PRN Con stipation 11/03/23 08/29/24 Unknown History oral suspension (Milk of Magnesia) polyethylene glycol 3350 17 17 g PO DAILY #510 grams 0 11/03/23 08/29/24 Unknown Rx gram/dose oral powder (Miralax) sodium phosphates 19 gram-7 118 ml AL DAILY PRN Consti pation 11/03/23 08/29/24 Unknown History gram/118 mL enema (Fleet Enema) pantoprazole 40 mg tablet,delayed 40 mg PO BID 6 weeks #84 tabs 11/25/23 08/29/24 Unknown Rx release (Protonix) albuterol sulfate 90 mcg/actuation 2 puff inhalation Q 4H PRN 12/02/23 08/29/24 Unknown History aerosol inhaler Shortness Of Breath doxepin 50 mg capsule 50 mg PO BEDTIME 12/02/23 Unknown History hydrocodone 5 mg-acetaminophen 325 1 tab PO Q6H PRN pa in #14 tabs 12/16/23 08/29/24 Unknown Rx mg tablet ondansetron 4 mg disintegrating 4 mg PO Q6H PRN nausea and 12/16/23 08/29/24 Unknown Rx tablet vomiting #14 tabs brexpiprazole 1 mg tablet (Rexulti) 1 mg PO DAILY 12/1608/29/24 Unknown History ketoconazole 2 % shampoo 1 applic topical BID 5 08/29/24 Unknown History loperamide 2 mg capsule 2 mg PO PRN PRN Constipation 08/29/24 08/29/24 Unknown History Allergies Allergy/AdvReac Type Severity Reaction Status Date / Time Sulfa (Sulfonamide Allergy ADR-Dizzine Verified 08/13/24 11:02 Antibiotics) ss PFSH Acute 2 PFSH: Medical History Hepatic steatosis Symptomatic cholelithiasis Hx of gallstones SOLIS (obstructive sleep apnea) Chronic kidney disease Dyslipidemia Hyperglycemia Depression with anxiety Arthritis B/L knees, left ankle Open left ankle fracture Surgical History History of laparoscopic cholecystectomy History of colonoscopy (12/16/21) H/O hand surgery Right History of arthroplasty of left ankle Family History Mother Diabetes Father Cancer unknown type of cancer Social History Smoking and tobacco/nicotine status: former use of tobacco/nicotine Second hand smoke exposure: Yes Alcohol intake: never Substance/Drug Use: never Adopted: No Caregiver/support person: Yes Lives independently: Yes Household members: family Housing: Manufactured/Mobile home Marital status: / Number of children: 0 Highest education level completed: High School Graduate service: Yes status: Retired branch: [employer] Current occupational status: retired Pets and animals: No Sexually active: No Do you think of yourself as: Straight/Heterosexual Current gender identity: Female Special isaac needs: No Vitals/I&O/Wt Last Vital Signs Temp 98.2 F 08/29/24 08:25 Pulse 81 08/29/24 08:53 Resp 20 H 08/29/24 08:25 BP 161/99 08/29/24 08:25 Pulse Ox 91 08/29/24 08:53 O2 Del Method Room Air 08/29/24 08:25 Weight last 48 hrs Weight 240 lb Physical Exam 2 Narrative: NIH score = 0. Point of contact glucose Accu-Chek [address] revealed no acute findings. There was report of moderate atrophy and small vessel ischemic changes and remote right posterior parietal lobe infarction. CT angiogram of the head and neck revealed advanced plaque with stenosis bilaterally through the carotid cavernous sinuses stenosis greater than 60%. The patient is alert she is oriented x 3. Patient answered all questions correctly and follow commands. Her speech is baseline for her patient has no teeth. Head atraumatic. Neck supple. Cranial nerves II through XII intact. Pupils 4 mm round reactive to light and accommodation. Extraocular movements intact. Motor testing grossly nonfocal at 5/5. There was no drift. [id number] revealed no signs of ataxia. DEEP TENDON REFLEXES: Revealed plantar responses flexor bilaterally. Sensory examination was intact to touch. There was no obvious extinction on double sensory stimulation. Throat clear. Lungs clear. Heart regular rhythm and rate. Extremities were negative for cyanosis Data 08/29/24 08:29 08/29/24 08:29 A&P Assessment and plan (1) Transient cerebral ischemia: Impression: 1. According to the patient around 7 AM on 08/29/2024 she began experiencing acute onset of shortness of breath associated with blurred vision and inability to stand up. The patient stated the symptoms lasted for few minutes and resolved but then returned. Patient was brought to [facility] emergency department. Code stroke was initiated at 8:11 AM reporting patient was 5 minutes out from the emergency department. In the emergency room the patient's symptoms resolved. NIH score = 0. Since the patient's NIH score =0 and the patient's symptoms resolved, patient was not a candidate for intravenous thrombolytics and no intravenous thrombolytics were administered. 2. Abnormal CT angiogram of the head and neck 08/29/2024 secondary to Advanced plaque with stenosis bilaterally through the carotid cavernous sinuses. Stenosis greater than 60%. 3. Abnormal noncontrast head CT 08/29/2024 secondary to Moderate atrophy and small vessel disease. Remote infarct posterior RIGHT parietal lobe. Plan 1. Recommend starting Plavix 75 mg p.o. every morning with low-dose aspirin 81 mg p.o. every morning with food since patient has history of remote right parietal lobe infarction and significant bilateral carotid plaque reported to be advance in the cavernous sinus carotid's 2. Recommend referral to vascular surgeon to determine if patient is candidate for stent placements in the carotid arteries 3. Agree with admission and placing patient on cardiac telemetry monitoring to assess for cardiac arrhythmias 4. Recommend continuing cholesterol-lowering agent such as Lipitor per NIH stroke protocol andincreasing Lipitor to 40 mg p.o. nightly 5. Neurochecks and vital signs per NIH stroke protocol 6. Occupational Therapy and physical therapy consults 7. Stroke education and stroke pamphlet for patient and family 8. Recommended patient's stop smoking. Please provide smoking education for patient and family regarding increased risk for health issues related to smoking nicotine and other substances PDMP PDMP Reviewed: Not Reviewed Consult Attestations 2 Medical Necessity Statement: The patient was evaluated by neurology for acute care/code stroke emergency department room #10 Coding Level of Care Code 44135 Diagnoses Transient cerebral ischemia G45.9
[2024-08-29 10:09] LABS: Troponin(5th) Baseline 7 ng/L (0-10)
--- NOTE | 2024-08-29 10:34 | PC.NURSE ---
ASPIRATION AND DYSPHASIA SCREEN PERFORMED. PATIENT ABLE TO SWALLOW WITHOUT DIFFICULTY.
--- NOTE | 2024-08-29 11:04 | ECG_ITS ---
10[facility] Test Date: 2024-08-29 Pat Name: Mallory Lynch Department: Room: 272 Gender: Female Sponge Diver: : 1950 Requested By: Carolyn Butcher Order Number: [id number] Adam MD: Law Romero M.D. Measurements Intervals [place] Rate: 98 P: 41 IA: 161 QRS: 13 QRSD: 86 T: 1 QT: 375 QTc: 480 Interpretive Statements SINUS RHYTHM WITH OCCASIONAL VENTRICULAR PREMATURE COMPLEXES WITH OCCASIONAL SUPRAVENTRICULAR PREMATURE COMPLEXES LOW QRS VOLTAGE IN PRECORDIAL LEADS [QRS DEFLECTION < 1.0 mV IN CHEST LEADS] NONSPECIFIC ST & T-WAVE ABNORMALITY Compared to ECG 08/29/2024 08:49:21 Ventricular premature complex(es) now present T-wave abnormality now present Left ventricular hypertrophy no longer present ST (T wave) deviation no longer present Electronically Signed On 08-30-2024 22:19:41 RAND MAKER by Law Romero M.D. [email or web address]
--- NOTE | 2024-08-29 11:33 | USCV_ITS ---
Mallory Lynch Age: 73 Gender: F : 1950 Exam Date: 08/29/2024 11:59 Ordering Phys: Anastacio Gooden MD Technologist: Exam Location: [facility] [place] Indication: cva BP: 134 / 72 HR: 76 Rhythm: Sinus Technical Quality: Adequate MEASUREMENTS (Male / Female) Normal Values 2D ECHO LV Diastolic Diameter PLAX 4.7 cm 4.2 - 5.9 / 3.9 - 5.3 cm IVS Diastolic Thickness 1.0 cm 0.6 - 1.0 / 0.6 - 0.9 cm IVS Systolic Thickness 1.9 cm LVPW Diastolic Thickness 1.3 cm 0.6 - 1.0 / 0.6 - 0.9 cm LVPW Systolic Thickness 1.5 cm LVOT Diameter 2.0 cm LV Ejection Fraction 2D Teich 64.5 % LV Ejection Fraction MOD 4C 66.0 % LV Ejection Fraction MOD 2C 65.0 % LV Ejection Fraction 2C AL 66.5 % LA Diameter 4.1 cm RA Systolic Volume 4C AL 46.1 ml RA Systolic Volume 4C MOD 43.6 ml Aorta at Sinotubular Diameter 2.8 cm IVC Diameter 1.2 cm M-MODE LA Ao Ratio MM 1.4 AV Cusp Separation MM 2.1 cm DOPPLER AV Peak Velocity 137.0 cm/s AV Area Cont Eq vti 2.4 cm squared AV Area Cont Eq pk 2.4 cm squared MV Area PHT 4.0 cm squared Mitral E to A Ratio 0.9 TV Peak Velocity 132.5 cm/s TR Peak Velocity 148.0 cm/s TR Peak Gradient 8.8 mmHg TV Peak E Velocity 87.0 cm/s PV Peak Velocity 89.0 cm/s FINDINGS Left Ventricle Left ventricle is normal in size. LV systolic function is normal with EF of 60-65%. No regional wall motion abnormalities are seen. Grade 1 diastolic dysfunction. Right Ventricle Normal in size and function Right Atrium Normal in size. Few bubbles seen in LV, howevere as RV is already filled by agitated saline at time of obtaining images, can not assess accurately for intracardiac shunt Left Atrium Normal in size Mitral Valve Mild mitral annular calcification. Trace mitral regurgitation. Aortic Valve Aortic valve is thickened. No significant stenosis or regurgitation. Tricuspid Valve Insufficient TR jet to calculate RVSP. Pulmonic Valve Not well visualized Pericardium Normal Aorta Normal in size IVC Appears to be normal CONCLUSIONS LV systolic function is normal with EF of 60 to 65%. Grade 1 diastolic dysfunction. Few bubbles seen in LV, howevere as RV is already filled by agitated saline at time of obtaining images, can not assess accurately for intracardiac shunt. Trace mitral regurgitation No comparison studies are available. Law Romero MD (Electronically Signed) Final Date: 29 August 2024 12:54 S
--- NOTE | 2024-08-29 11:33 | MR_ITS ---
WS: [id number] MRI HEAD WITHOUT CONTRAST TECHNIQUE: Sagittal T1, T2 axial, T2 axial FLAIR, axial and coronal T1 images, axial susceptibility weighted imaging, axial diffusion weighted images, and coronal T2 images were obtained. CLINICAL INFORMATION: CVA COMPARISON: CT head 08/29/2024 FINDINGS: No evidence of restricted diffusion to suggest acute ischemia. Ventricular system and basal cisterns are patent. Moderate small vessel changes. Mild parenchymal volume loss. Tiny chronic lacunar infarct RIGHT thapa radiata. Normal posterior fossa. Normal vascular flow voids at the skull base. No extra- axial fluid collections. No evidence of mass or mass effect. Mild mucosal thickening in the paranasal sinuses. Mild mucosal thickening in the RIGHT greater than LEFT mastoid air cells. Normal optic chiasm and pituitary infundibulum. Moderate symmetric atrophy temporal lobes and hippocampal formations. Numerous foci of hemosiderin in the interpeduncular cistern, vinay, brachium pontis, and bilateral cerebellar folia. Additional foci in the anterior temporal lobes although some images degraded by motion artifact. MR/MR head wo con* [id number] IMPRESSION: 1. No evidence of restricted diffusion to suggest acute ischemia. 2. Multiple foci of hemosiderin mainly in the interpeduncular cistern, vinay an d bilateral cerebellar folia compatible with superficial siderosis. 3. Moderate small vessel changes. Mild parenchymal volume loss. 4. Small chronic infarct in the RIGHT parietal lobe with encephalomalacia. 5. Tiny chronic lacunar infarcts RIGHT thapa radiata and RIGHT cerebellum. 6. Mucosal thickening in the paranasal sinuses and mastoid air cells.
--- NOTE | 2024-08-29 11:41 | PM.HP ---
Providers/Chief Complaint Admitting Physician: Anastacio Gooden Primary Care Provider: Araceli Wooten MD Chief Complaint: Poss Stroke History of Present Illness Mallory Lynch is a 73 year old female who around 7 AM started experiencing acute onset of blurred vision, slurred speech, acute right-sided weakness, stroke code was called and she was assessed for suspected CVA. CT head was obtained. Initial NIH score was 5, however, subsequently with improvement in her symptoms. She was not found to be a candidate for intervention. Review of Systems Const: Denies: fever(s), chills, body aches or malaise ENMT: Denies: throat pain Card: Denies: chest pain, edema, pre-syncope or dyspnea on exertion Resp: Denies: dyspnea, productive cough, change in phlegm color or hemoptysis GI: Denies: abdominal pain, nausea, vomiting, diarrhea, constipation, hematochezia or melena : Denies: flank pain, urinary frequency or hematuria Musc: Denies: back pain, joint swelling or joint redness Skin/Breast: Denies: rash Neuro: Reports: weakness in extremities; Denies: headache(s) or dizziness Medications/Allergies Home Medications ?Medication ?Instructions ?Recorded ?Confirmed ?Last Taken ?Type citalopram 40 mg tablet 40 mg PO DAILY #90 tabs 09/13/22 08/29/24 11/02/23 Rx clonazepam 1 mg tablet 1 mg PO BID PRN anxiety #60 tabs 12/13/22 08/29/24 11/02/23 Rx docusate sodium 100 mg capsule 100 mg PO BEDTIME 09/08/23 08/29/24 11/02/23 History (Colace) acetaminophen 325 mg tablet 325 mg PO Q6H PRN Pain 11/03/23 08/29/24 Unknown History (Tylenol) atorvastatin 10 mg tablet 10 mg PO BEDTIME 11/03/23 08/29/24 11/02/23 History bisacodyl 10 mg rectal suppository 10 mg OK DAILY PRN Constipation 11/03/23 08/29/24 Unknown History magnesium hydroxide 400 mg/5 mL 30 ml PO DAILY PRN Constipation 11/03/23 08/29/24 Unknown History oral suspension (Milk of Magnesia) polyethylene glycol 3350 17 17 g PO DAILY #510 grams 11/03/23 08/29/24 Unknown Rx gram/dose oral powder (Miralax) sodium phosphates 19 gram-7 118 ml OK DAILY PRN Constipation 11/03/23 08/29/24 Unknown History gram/118 mL enema (Fleet Enema) pantoprazole 40 mg tablet,delayed 40 mg PO BID 6 weeks #84 tabs 11/25/23 08/29/24 Unknown Rx release (Protonix) albuterol sulfate 90 mcg/actuation 2 puff inhalation Q4H PRN 12/02/23 08/29/24 Unknown History aerosol inhaler Shortness Of Breath doxepin 50 mg capsule 50 mg PO BEDTIME 12/02/23 08/29/24 Unknown History hydrocodone 5 mg-acetaminophen 325 1 tab PO Q6H PRN pain #14 tabs 12/16/23 08/29/24 Unknown Rx mg tablet ondansetron 4 mg disintegrating 4 mg PO Q6H PRN nausea and 12/16/23 08/29/24 Unknown Rx tablet vomiting #14 tabs brexpiprazole 1 mg tablet (Rexulti) 1 mg PO DAILY 08/29/24 08/29/24 Unknown History ketoconazole 2 % shampoo 1 applic topical BID 08/29/24 08/29/24 Unknown History loperamide 2 mg capsule 2 mg PO PRN PRN Constipation 08/29/24 08/29/24 Unknown History Allergies Allergy/AdvReac Type Severity Reaction Status Date / Time Sulfa (Sulfonamide Allergy ADR-Dizzine Verified 08/13/24 11:02 Antibiotics) ss PFSH Acute PFSH: Medical History Hepatic steatosis Symptomatic cholelithiasis Hx of gallstones SOLIS (obstructive sleep apnea) Chronic kidney disease Dyslipidemia Hyperglycemia Depression with anxiety Arthritis B/L knees, left ankle Open left ankle fracture Surgical History History of laparoscopic cholecystectomy History of colonoscopy (12/16/21) H/O hand surgery Right History of arthroplasty of left ankle Family History Mother Diabetes Father Cancer unknown type of cancer Social History Smoking and tobacco/nicotine status: former use of tobacco/nicotine Second hand smoke exposure: Yes Alcohol intake: never Substance/Drug Use: never Adopted: No Caregiver/support person: Yes Lives independently: Yes Household members: family Housing: Manufactured/Mobile home Marital status: / Number of children: 0 Highest education level completed: High School Graduate service: Yes status: Retired branch: [employer] Current occupational status: retired Pets and animals: No Sexually active: No Do you think of yourself as: Straight/Heterosexual Current gender identity: Female Special isaac needs: No Vitals/I&O/Wt Last Vital Signs Temp 98.2 F 08/29/24 08:25 Pulse 79 08/29/24 10:53 Resp 22 H 08/29/24 10:36 BP 179/101 08/29/24 10:53 Pulse Ox 93 08/29/24 10:53 O2 Del Method Room Air 08/29/24 10:36 Weight last 48 hrs Weight 108.862 kg Physical Exam Const: COMMON NORMALS: patient oriented x3 and alert GENERAL APPEARANCE: cooperative ORIENTATION/CONSCIOUSNESS: Yes awake HENMT: COMMON NORMALS: oropharynx normal Neck/C-Spine: COMMON NORMALS: no JVD Resp: COMMON NORMALS: normal respiratory effort and clear to auscultation bilaterally AUSCULTATION: clear to auscultation bilaterally Cardio: COMMON NORMALS: no JVD, regular rhythm, S1 normal heart sound present, S2 normal heart sound present and No murmurs present (Cardio) RHYTHM: regular rhythm HEART SOUNDS: S1 normal heart sound present and S2 normal heart sound present GI: COMMON NORMALS: Normal to inspection, nondistended, normoactive bowel sounds present, Soft to palpation and non-tender PALPATION: Yes Soft to palpation Extremity: COMMON NORMALS: no joint enlargement and no pedal edema Neuro: COMMON NORMALS: patient oriented x3 and moves all extremities SENSORIUM/ORIENTATION: Yes alert OTHER: She is on a, alert, following directions. No difficulty with horizontal tracking. Visual morris full to confrontation. No visual extinction. Slight difficulty with FNF on the right. No difficulty in the left. Sensory exam symmetrical bilaterally. No suspected EXTR. No upper or lower extremity drift bilaterally. Skin: COMMON NORMALS: no rashes or lesions noted GENERAL SKIN EXAM: no rashes or lesions noted Data 08/29/24 08:29 08/29/24 08:29 A&P Assessment and plan (1) Transient cerebral ischemia: On presentation transient STEMI for tach, possible small CVA, right upper and lower extremity weakness, slurred speech, some blurred vision on presentation. Symptoms had resolved. Only thing residual I noted on exam is mild difficulty with FNF on the right.Was not found CT head was obtained. She was assessed by neurology. Candidate for intervention. CT angiogram head and neck without high-grade stenosis of cervical carotid arteries. Advanced plaque with stenosis bilaterally through carotid cavernous sinuses. Stenosis greater than 60%. No occlusion within the [place]. She is being hospitalized for additional assessment management after TIA versus CVA. Reviewed vitals, CBC, INR, CMP, ER provider note, discussed with ER provider, neurology note, head CT, head and neck CTA. With minor residual symptoms will obtain MRI brain. She is hypertensive. Depending on MRI results, consider more aggressive blood pressure management. She started on aspirin, Plavix. Monitor for risk of bleeding. Reassess blood counts. Statin dose escalated up to 40 mg. Additional workup requested with echocardiogram bubble study. Telemetry monitoring. Assess lipid profile, A1c. Pending assessment by ST, PT, OT. (2) HTN (hypertension): Hypertensive, blood pressure currently 179/101. Blood pressure was lower on presentation 155/86. Additional assessment as above of TIA, possible minor CVA. Monitor blood pressure. Plan Hyperglycemia: Glucose noted up to 200. Will check A1c. Reported dyspnea, although is not complaining of dyspnea on my evaluation. Will assess chest x-ray. EKG reviewed, metrician sinus rhythm, some T wave flattening in aVF, septal leads. Pending official read HLD: Statin SOLIS CKD: Creatinine close to baseline at 1.2. Hepatic steatosis Other medical problems PDMP PDMP Reviewed: Not Reviewed Attestations Medical Necessity Statement*: Place in observation for additional assessment management of TIA versus possible minor CVA. and High MDM includes amount and/or complexity of data reviewed/ordered [ previous or external records, resulted lab(s)/test(s), ordered lab(s)/test(s), independent test interpretation and other healthcare professional discussion] and described risk of complication, morbidity or mortality of management as documented Diagnoses Transient cerebral ischemia G45.9 HTN (hypertension) I10
--- NOTE | 2024-08-29 11:55 | XR_ITS ---
WS: [id number] Portable AP semiupright chest, 08/29/2024 Clinical Data: Dyspnea Comparison: Two-view chest, 07/20/2024 Findings: No nodules, masses or effusions are seen. The heart is normal. The pulmonary vascularity is not increased. No pneumonia or pneumothorax is seen. The aortic arch is minimally tortuous. There are monitor leads on the chest wall. XR/XR chest 1V portable [id number] Impression: Atherosclerosis.
[2024-08-29] MEDS: clopidogrel 75 mg Tablet PO (13:06)
[2024-08-29] MEDS: aspirin 81 mg EC Tablet 162 MG PO (13:06)
[2024-08-29] MEDS: enoxaparin 40 mg/0.4 mL Syringe SUBCUT (13:06)
--- NOTE | 2024-08-29 15:04 | ECG_ITS ---
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 Measurements Intervals [place] Rate: 78 P: 60 MT: 135 QRS: 15 QRSD: 87 T: 36 QT: 374 QTc: 428 Interpretive Statements SINUS RHYTHM NONSPECIFIC ST & T-WAVE ABNORMALITY Compared to ECG 08/29/2024 11:04:53 Ventricular premature complex(es) no longer present T-wave abnormality still present Electronically Signed On 08-30-2024 22:19:10 EXTERIOR INTERIOR SPECIALIST by Law Romero M.D. [id number]
[2024-08-29 16:58] LABS: Glucose Point of Care 154 mg/dL (70-110)
--- NOTE | 2024-08-29 18:17 | PC.NURSE ---
Patient took herself to the bedside commode and on the way transferring back to the bed, patient went to her knees. Dr. Gooden notified. Patient has no bruising or scratches at this time. With the help of nursing, was assisted back to bed.
[2024-08-29 20:25] LABS: Glucose Point of Care 132 mg/dL (70-110)
[2024-08-29] MEDS: atorvastatin 40 mg Tablet PO (22:05)
[2024-08-29] MEDS: morphine 4 mg/mL SDV 1 mL 2 MG IVP (23:44)
[2024-08-30 00:07] VITALS: BP 154/83; PULSE 78; RESP 18; TEMP 37.1; O2SAT 93
[2024-08-30 02:45] LABS: Basophils % 0.5 %; Eosinophils % 0.8 %; Hematocrit 36.8 % (36-47); Lymphocytes # 0.9 10^3/uL (0.8-4.8); Lymphocytes % 23.4 %; Mean Corpuscular HGB Conc 32.6 g/dL (30-55); Mean Corpuscular Hemoglobin 30.6 pg (27-33); Mean Corpuscular Volume 93.9 fl (85-98); Mean Platelet Volume 9.5 fL (7.4-10.4); Monocytes # 0.3 10^3/uL (0.2-0.9); Monocytes % 8.7 %; Neutrophils # 2.61 10^3/uL (1.8-7.7); Neutrophils % 66.3 %; Nucleated Red Blood Cells % 0 %; Platelet Count 159 10^3/cmm (157-399); Red Blood Count 3.92 10^6/uL (3.85-5.65); Red Cell Distribution Width 12.8 % (12.1-15.1); White Blood Count 3.93 10^3/uL (3.29-11.43)
[2024-08-30 03:11] LABS: Chol HDL Ratio 2.16 mg/dL (0.0-4.40); Cholesterol 95 mg/dL (0-200); HDL Cholesterol 44 mg/dL (60-100); LDL Cholesterol Calculated 39 mg/dL (50-129); LDL HDL Ratio 0.89 RATIO (0.00-3.22); Triglycerides 59 mg/dL (0-150)
[2024-08-30 03:19] LABS: Estmated Average Glucose 154
[2024-08-30 03:57] VITALS: BP 147/82; PULSE 74; RESP 22; TEMP 37.7; O2SAT 94
[2024-08-30] MEDS: acetaminophen 325 mg Tablet 650 MG PO (04:06)
[2024-08-30 05:17] LABS: Adenovirus Not Detected (NOT DETECT); Chlamydia Pneumoniae Not Detected (NOT DETECT); Coronavirus 229E,HKU1,NL63,OC4 Not Detected (NOT DETECT); Human Metapneumovirus Not Detected (NOT DETECT); Human Rhinovirus/Enterovirus Not Detected (NOT DETECT); Influenza A Detected (NOT DETECT); Influenza A H1 Not Detected (NOT DETECT); Influenza A H1-2009 Not Detected (NOT DETECT); Influenza A H3 Detected (NOT DETECT); Influenza B Not Detected (NOT DETECT); Mycoplasma Pneumoniae Not Detected (NOT DETECT); Parainfluenza Virus Type 1 Not Detected (NOT DETECT); Parainfluenza Virus Type 2 Not Detected (NOT DETECT); Parainfluenza Virus Type 3 Not Detected (NOT DETECT); Parainfluenza Virus Type 4 Not Detected (NOT DETECT); Respiratory Syncytial Virus A Not Detected (NOT DETECT); Respiratory Syncytial Virus B Not Detected (NOT DETECT); SARS-COV-2 Not Detected (NOT DETECT)
[2024-08-30 06:18] LABS: Glucose Point of Care 122 mg/dL (70-110)
--- NOTE | 2024-08-30 06:35 | PC.NURSE ---
patient resp panel came back positive for the flu this morning about 6am. dr wilder messaged and notified of the results and no response as of now.
[2024-08-30 07:33] VITALS: BP 145/84; PULSE 73; TEMP 36.7; O2SAT 90
[2024-08-30] MEDS: aspirin 81 mg EC Tablet 162 MG PO (08:39)
[2024-08-30] MEDS: clopidogrel 75 mg Tablet PO (08:39)
[2024-08-30] MEDS: oseltamivir phosphate 30 mg Capsule PO (08:49)
[2024-08-30 08:50] VITALS: RESP 22
[2024-08-30] MEDS: morphine 4 mg/mL SDV 1 mL 2 MG IVP (08:50)
--- NOTE | 2024-08-30 10:44 | P.DS_ITS ---
Discharge Providers Date of Admission: 08/29/24 10:07 Date of Discharge: August 30, 2024 Attending Provider at Admission: Anastacio Gooden Attending Provider at Discharge: Anastacio Gooden Primary Care Provider: Araceli Wooten MD Diagnoses at Discharge Discharge Diagnosis (1) Transient cerebral ischemia: Status: Acute (2) HTN (hypertension): Status: Acute Reason for Visit Reason for Visit: Poss Stroke Brief History: Mallory Lynch is a 73 year old female who around 7 AM started experiencing acute onset of blurred vision, slurred speech, acute right-sided weakness, stroke code was called and she was assessed for suspected CVA. CT head was obtained. Initial NIH score was 5, however, subsequently with improvement in her symptoms. She was not found to be a candidate for intervention. Hospital Course Hospital Course She was admitted for additional assessment. She was having some generalized weakness, cough, will assess with respiratory viral panel, found to be influenza A positive. Requiring minimal oxygen, 1 L, otherwise feeling better. She will complete a course of Tamiflu. Additional workup with regards to TIA, with some mild residual dysmetria on the right side, obtained MRI brain, which does show some small chronic right parietal lobe infarct with encephalomalacia, as well as tiny chronic lacunar infarcts right thapa radiata and right cerebellum. Sinus rhythm noted on EKGs, but she will be set up with a customer solutions representative at discharge. Echocardiogram was obtained, showed normal ejection fraction, grade 1 diastolic function. Few bubbles seen in left ankle, however, RV already filled by agitated saline at the time of obtaining images, cannot assess accurately for intracardiac shunt. Consider repeat echocardiogram bubble study to reassess intracardiac shunt. She has continued on aspirin, Plavix, continue Plavix for 21 days, atorvastatin is escalated up to 40 mg. She is found to have coronary disease overtly 60% stenosis with advanced plaque in the carotid cavernous sinuses. Continue position of medical management. She was hypertensive on presentation, although blood pressure is gradually improved during his position, please reassess blood pressures, continue to optimize control, target blood pressures 120/80. She is started on losartan. She is additionally newly diagnosed with diabetes, A1c is found to be 7. She started metformin. She additionally still smokes about 4 cigarettes a week. Discussed with her smoking cessation for 5 minutes. She understands the need to quit, continue to encourage cessation. Physical Exam Narrative: 1 L nasal cannula. Const: COMMON NORMALS: patient oriented x3 and alert GENERAL APPEARANCE: cooperative ORIENTATION/CONSCIOUSNESS: Yes awake HENMT: COMMON NORMALS: oropharynx normal Neck/C-Spine: COMMON NORMALS: no JVD Resp: COMMON NORMALS: normal respiratory effort and clear to auscultation bilaterally AUSCULTATION: clear to auscultation bilaterally Cardio: COMMON NORMALS: no JVD, regular rhythm, S1 normal heart sound present, S2 normal heart sound present and No murmurs present (Cardio) RHYTHM: regular rhythm HEART SOUNDS: S1 normal heart sound present and S2 normal heart sound present GI: COMMON NORMALS: Normal to inspection, nondistended, normoactive bowel sounds present, Soft to palpation and non-tender PALPATION: Yes Soft to pa lpation Extremity: COMMON NORMALS: no joint enlargement and no pedal edema Neuro: COMMON NORMALS: patient oriented x3 and moves all extremities SENSORIUM/ORIENTATION: Yes alert OTHER: She is on a, alert, following directions. No difficulty with horizontal tracking. Visual morris full to confrontation. No visual extinction. Slight difficulty with FNF on the right. No difficulty in the left. Sensory exam symmetrical bilaterally. No suspected EXTR. No upper or lower extremity drift bilaterally. Skin: COMMON NORMALS: no rashes or lesions noted GENERAL SKIN EXAM: no rashes or lesions noted Discharge Data Studies Completed and Pending Completed Studies During Hospitalization Category Date Time Status CT head thrombolytic [id number] Stat Cat Scan 08/29/24 08:14 Completed CTA head neck [CT angio headneck* [id number]] Stat Cat Scan 08/29/24 09:03 Completed CXRP [XR chest 1V portable [id number]] Routine Exams 08/29/24 11:55 Completed MR head wo con* [id number] Routine MRI 08/29/24 11:33 Completed CV. echo w/w bubble cont [id number] Routine Ultrasound 08/29/24 11:33 Completed Pending at discharge Category Date Time Status Urinalysis and Microscopic Stat Lab 08/29/24 08:18 Uncollected Radiology Impressions Head CT 08/29/24 08:14 IMPRESSION: 1. No acute intracranial hemorrhage or edema. 2. Moderate atrophy and small vessel disease. Remote infarct posterior RIGHT parietal lobe. Notified Carolyn Keene MD at 08/29/2024 8:29 AM. Head/Neck CTA 08/29/24 09:03 IMPRESSION: 1. No high-grade cervical carotid artery stenosis. Mild plaque at the bifurcations. 2. Advanced plaque with stenosis bilaterally through the carotid cavernous sinuses. Stenosis greater than 60%. 3. No occlusion within the [place] of [place]. No aneurysm. Head MRI 08/29/24 11:33 IMPRESSION: 1. No evidence of restricted diffusion to suggest acute ischemia. 2. Multiple foci of hemosiderin mainly in the interpeduncular cistern, vinay and bilateral cerebellar folia compatible with superficial siderosis. 3. Moderate small vessel changes. Mild parenchymal volume loss. 4. Small chronic infarct in the RIGHT parietal lobe with encephalomalacia. 5. Tiny chronic lacunar infarcts RIGHT thapa radiata and RIGHT cerebellum. 6. Mucosal thickening in the paranasal sinuses and mastoid air cells. Chest X-Ray 08/29/24 11:55 Impression: Atherosclerosis. Laboratory Results WBC 3.93 10^3/uL (3.29-11.43) 08/30/24 02:05 RBC 3.92 10^6/uL (3.85-5.65) 08/30/24 02:05 Hgb 12.00 g/dL (11.27-16.99) 08/30/24 02:05 Hct 36.8 % (36-47) 08/30/24 02:05 MCV 93.9 fl (85-98) 08/30/24 02:05 MCH 30.6 pg (27-33) 08/30/24 02:05 MCHC 32.6 g/dL (30-55) 08/30/24 02:05 RDW 12.8 % (12.1-15.1) 08/30/24 02:05 Plt Count 159 10^3/cmm (157-399) 08/30/24 02:05 MPV 9.5 fL (7.4-10.4) 08/30/24 02:05 Neut % (Auto) 66.3 % 08/30/24 02:05 Lymph % (Auto) 23.4 % 08/30/24 02:05 [place] % (Auto) 8.7 % 08/30/24 02:05 Eos % (Auto) 0.8 % 08/30/24 02:05 Baso % (Auto) 0.5 % 08/30/24 02:05 Neut # (Auto) 2.61 10^3/uL (1.8-7.7) 08/30/24 02:05 Lymph # (Auto) 0.9 10^3/uL (0.8-4.8) 08/30/24 02:05 [place] # (Auto) 0.3 10^3/uL (0.2-0.9) 08/30/24 02:05 Eos # (Auto) 0.0 10^3/uL (0.0-0.8) 08/30/24 02:05 Baso # (Auto) 0.0 10^3/uL (0.0-0.1) 08/30/24 02:05 Nucleated RBC % (auto) 0 % 08/30/24 02:05 Nucleated RBCs # 0.0 /100WBC 08/30/24 02:05 PT 13.40 SECONDS (12.1-14.9) 08/29/24 08:29 INR 0.96 (0.8-1.2) 08/29/24 08:29 APTT 29.5 SECONDS (23.9-36.7) 08/29/24 08:29 Sodium 136 mmol/L (136-145) 08/29/24 08:29 Potassium 3.8 mmol/L (3.5-5.1) 08/29/24 08: Chloride 99 mmol/L (98-107) 08/29/24 08: Carbon Dioxide 25 mmol/L (22-29) 08/29/24 08:29 Anion Gap 15.8 (5-19) 08/29/24 08:29 BUN 9 mg/dL (8-23) 08/29/24 08:29 Creatinine 1.2 mg/dL (0.5-0.9) H 08/29/24 08:29 GFR Calculation Not Reportable 08/29/24 08:29 Glucose 200 mg/dL (65-115) H 08/29/24 08: POC Glucose 122 mg/dL (70-110) H 08/30/24 06:09 Estimat Average Glucose 154 08/30/24 02:05 Hemoglobin A1c 7.0 % (4.0-6.0) H 08/30/24 02:05 Calculated Osmolality 286 mOsm/kg (285-295) 08/29/24 08:29 Calcium 9.0 mg/dL (8.5-10.5) 08/29/24 08:29 Total Bilirubin 0.5 mg/dL (0.15-1.2) 08/29/24 08:29 AST 14 U/L (0-32) 08/29/24 08:29 ALT 11 U/L (0-33) 08/29/24 08:29 Alkaline Phosphatase 121 U/L (35-105) H 08/29/24 08:29 Troponin T Baseline 7 ng/L (0-10) 08/29/24 08:20 Troponin T 120 Minute 6.40 ng/L (0-10) 08/29/24 10:31 Delta Troponin T -0.60 ABS# (0-10) L 08/29/24 10:31 Troponin T Hi Sens 6Hr 9.00 ng/L (0-10) 08/29/24 14:44 Troponin T Hi Sens 6Hr Delta 2.00 ng/L (0-12) 08/29/24 14:44 Total Protein 6.6 g/dL (6.6-8.7) 08/29/24 08:29 Albumin 3.6 g/dL (3.5-5.2) 08/29/24 08:29 Globulin 3.0 g/dL (1.3-4.6) 08/29/24 08:29 Triglycerides 59 mg/dL (0-150) 08/30/24 02:05 Cholesterol 95 mg/dL (0-200) 08/30/24 02:05 LDL Cholesterol, Calc 39 mg/dL (50-129) L 08/30/24 02:05 HDL Cholesterol 44 mg/dL (60-100) L 08/30/24 02:05 LDL/HDL Ratio 0.89 RATIO (0.00-3.22) 08/30/24 02:05 Cholesterol/HDL Ratio 2.16 mg/dL (0.0-4.40) 08/30/24 02:05 Adenovirus (PCR) Not detected (NOT DETECT) 08/30/24 03:20 C. pneumoniae DNA (PCR) Not detected (NOT DETECT) 08/30/24 03:20 Coronavirus 229E (PCR) Not detected (NOT DETECT) 08/30/24 03:20 Human Metapneumovir PCR Not detected (NOT DETECT) 08/30/24 03:20 Influenza A (H1) PCR Not detected (NOT DETECT) 08/30/24 03:20 Influ A (H1/09) PCR Not detected (NOT DETECT) 08/30/24 03:20 Influenza A (H3) PCR Detected (NOT DETECT) A 08/30/24 03:20 Influenza Type A (PCR) Detected (NOT DETECT) A 08/30/24 03:20 Influenza Type B (PCR) Not detected (NOT DETECT) 08/30/24 03:20 M. pneumoniae (PCR) Not detected (NOT DETECT) 08/30/24 03:20 Parainfluenza 1 (PCR) Not detected (NOT DETECT) 08/30/24 03:20 Parainfluenza 2 (PCR) Not detected (NOT DETECT) 08/30/24 03:20 Parainfluenza 3 (PCR) Not detected (NOT DETECT) 08/30/24 03:20 Parainfluenza 4 (PCR) Not detected (NOT DETECT) 08/30/24 03:20 RSV Type A (PCR) Not detected (NOT DETECT) 08/30/24 03:20 RSV Type B (PCR) Not detected (NOT DETECT) 08/30/24 03:20 Entero/Rhino (PCR) Not detected (NOT DETECT) 08/30/24 03:20 SARS-CoV-2 (PCR) Not detected (NOT DETECT) 08/30/24 03:20 Vitals Last Vital Signs Temp 98.0 F 08/30/24 07:33 Pulse 73 08/30/24 07:33 Resp 22 H 08/30/24 08:50 BP 145/84 08/30/24 07:33 Pulse Ox 90 08/30/24 07:33 O2 Del Method Nasal Cannula 08/30/24 07:33 O2 Flow Rate 1 08/30/24 07:33 Discharge Plan Discharge Patient Disposition: Xfer SNF Condition: Stable Prescriptions: New atorvastatin 40 mg Tablet 40 mg PO BEDTIME Qty: 90 0RF clopidogrel 75 mg Tablet 75 mg PO DAILY Qty: 19 0RF aspirin 81 mg Tablet,Delayed Release (Dr/Ec) 81 mg PO DAILY Qty: 90 0RF oseltamivir [Tamiflu] 30 mg Capsule 30 mg PO BID Qty: 13 0RF metformin 500 mg tablet 500 mg PO BID Qty: 180 0RF losartan 25 mg tablet 25 mg PO DAILY Qty: 90 0RF Continued pantoprazole [Protonix] 40 mg tablet,delayed release (DR/EC) 40 mg PO BID 42 Days Qty: 84 1RF citalopram 40 mg tablet 40 mg PO DAILY Qty: 90 1RF clonazepam 1 mg tablet 1 mg PO BID PRN (Reason: anxiety) Qty: 60 2RF docusate sodium [Colace] 100 mg capsule 100 mg PO BEDTIME albuterol sulfate 90 mcg/actuation HFA aerosol inhaler 2 puff INHALATION Q4H PRN (Reason: Shortness Of Breath) doxepin 50 mg capsule 50 mg PO BEDTIME hydrocodone-acetaminophen 5-325 mg tablet 1 tab PO Q6H PRN (Reason: pain) Qty: 14 0RF ondansetron 4 mg tablet,disintegrating 4 mg PO Q6H PRN (Reason: nausea and vomiting) Qty: 14 0RF magnesium hydroxide [Milk of Magnesia] 400 mg/5 mL Suspension 30 ml PO DAILY PRN (Reason: Constipation) bisacodyl 10 mg Suppository 10 mg [place] DAILY PRN (Reason: Constipation) acetaminophen [Tylenol] 325 mg Tablet 325 mg PO Q6H PRN (Reason: Pain) Fleet Enema 19-7 gram/118 mL Enema 118 ml [place] DAILY PRN (Reason: Constipation) polyethylene glycol 3350 [Miralax] 17 gram/dose powder 17 g PO DAILY Qty: 510 0RF ketoconazole 2 % shampoo 1 applic TOPICAL BID loperamide 2 mg Capsule 2 mg PO PRN PRN (Reason: Constipation) Rx Instructions: administer after each loose stool until symptoms controlled; do not exceed 8 mg per 24 hrs Rexulti 1 mg tablet 1 mg PO DAILY Discontinued atorvastatin 10 mg tablet 10 mg PO BEDTIME Discharge Orders: Discharge Order (Routine); Ordered 08/30/24 Ordered By: Anastacio Gooden Other Ambulatory Orders: MCT/Event Monitor 21 Days (Routine) Timeframe: 1 Day Facility: [facility] - Location: Radiology Ordered By: Anastacio Gooden Referrals: [facility] [Outside] Araceli Wooten MD [Primary Care Provider] - 4-7 days Duran Mackey MD [Physician] - 2 weeks (TIA, strokes) Discharge Diet: As Directed Discharge Activity: Increase activity as tolerated and As per PT/OT instructions Patient Instructions: Aspirin (By mouth), Atorvastatin (By mouth) (Lipitor, Atorvaliq), Clopidogrel (By mouth) (Plavix), Oseltamivir (By mouth) (Tamiflu), Transient Ischemic Attack (DC), Influenza (DC), Stroke Stoplight Activity Restrictions/Additional Instructions: Follow up with your primary provider for reassessment after transient ischemic attack. Continue to optimize cardiovascular risk factors including carotid disease. Continue to optimize blood pressure. Target 120/80. Treat new diagnosis of diabetes. Stop smoking entirely. Follow up regarding influenza infection. Continue oxygen support 1 L/min, wean down as tolerating. Follow up with your primary doctor for repeat echocardiogram bubble study. Discharge Attestations Time Spent in Discharge Care*: greater than 30 min Status at Discharge: Cognitive status at discharge: cognitively intact , Behavioral status at discharge: cooperative , Quality Metrics Clinical Quality Measures [ Cerebrovascular Accident { Contraindication to Antithrombotic: None; antithrombotic prescribed; Contraindication to Anticoagulation: Overlap treatment not indicated; Contraindication to Statin: None; Statin prescribed;}] Coding Level of Care Code 30383 Total time (in minutes) for Discharge: 55 Diagnoses Transient cerebral ischemia G45.9 HTN (hypertension) I10
[2024-08-30 11:08] VITALS: BP 131/100; PULSE 61; RESP 18; O2SAT 97
[2024-08-30 11:27] LABS: Bilirubin Urine Negative (Negative); Blood Urine Negative (Negative); Glucose Urine UA Negative (Normal); Ketones Urine Negative (Negative); Leukocyte Esterase Urine Negative (Negative); Nitrate Urine Negative (Negative); Protein Urine Trace (Negative); Specific Gravity, Urine 1.023 (1.005-1.030); Urine Appearance Cloudy (CLEAR); Urine Color Yellow (Yellow)
[2024-08-30 11:33] LABS: Bacteria Urine 4+ /hpf; Hyaline Casts Urine 4.11 /lpf; RBC Urine 21-50 /hpf (0-2); WBC Urine 0-5 /hpf (0-5)
[2024-08-30] MEDS: enoxaparin 40 mg/0.4 mL Syringe SUBCUT (11:57)
--- NOTE | 2024-08-30 11:57 | PC.OT ---
OT EVALUATION HELD TODAY PATIENT IS SCHEDULED FOR D/C
[2024-08-30 12:08] LABS: UA Slide Review UA Slide Review Perf
[2024-08-30 12:10] LABS: Add Urine Culture? Yes; Amorphous Sediment Urine 1+ /hpf
[2024-08-30 14:17] VITALS: BP 131/100; PULSE 61; RESP 18; TEMP 36.6; O2SAT 97
== END 2024-08-30 13:30 | disposition skilled nursing facility (03) ==
LOC: ER 09:59 → MEDSURG 10:07
PROVIDERS: Internal Medicine; Admitting Provider Internal Medicine; Emergency Provider Emergency Medicine; PCP Family Medicine; Visit Provider Internal Medicine
DX: I65.23 Occlusion and stenosis of bilateral carotid arteries (principal); J10.1 Influenza due to other identified influenza virus with other respiratory manifestations; E78.5 Hyperlipidemia, unspecified; G89.4 Chronic pain syndrome; F41.8 Other specified anxiety disorders; K21.9 Gastro-esophageal reflux disease without esophagitis; G47.33 Obstructive sleep apnea (adult) (pediatric); Z79.899 Other long term (current) drug therapy; Z88.2 Allergy status to sulfonamides; Z90.49 Acquired absence of other specified parts of digestive tract; Z96.662 Presence of left artificial ankle joint; N18.31 Chronic kidney disease, stage 3a; F17.210 Nicotine dependence, cigarettes, uncomplicated; Z86.73 Personal history of transient ischemic attack (TIA), and cerebral infarction without residual deficits; H53.8 Other visual disturbances; R47.81 Slurred speech; R53.1 Weakness; I12.9 Hypertensive chronic kidney disease with stage 1 through stage 4 chronic kidney disease, or unspecified chronic kidney disease; Z11.52 Encounter for screening for COVID-19; R27.8 Other lack of coordination; G93.89 Other specified disorders of brain
CPT/HCPCS: 36415; 36416; 70450; 70496; 70498; 70551; 71045; 80053; 80061; 81001; 82962; 83036; 84484; 85025; 85610; 85730; 87077; 87086; 87186; 87486; 87581; 87633; 92610; 93005; 96372; 96374; 97161; 97530; 99285; C8929; G0378; J1650; J2270

== ENCOUNTER 2024-10-02 17:32 | Emergency (ER) | payer MEDICARE, MEDICAID, SELFPAY ==
[2024-10-02 17:34] VITALS: BP 150/80; PULSE 67; RESP 16; TEMP 36.8; O2SAT 98; BMI 42.4
--- NOTE | 2024-10-02 17:35 | ECG_ITS ---
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 Measurements Intervals [place] Rate: 68 P: 0 NE: 0 QRS: 49 QRSD: 89 T: 44 QT: 409 QTc: 436 Interpretive Statements SINUS RHYTHM WITH PVC LOW QRS VOLTAGE IN PRECORDIAL LEADS [QRS DEFLECTION < 1.0 mV IN CHEST LEADS] NONSPECIFIC T-WAVE ABNORMALITY Compared to ECG 08/29/2024 13:50:12 Supraventricular rhythm now present Low QRS voltage now present Sinus rhythm no longer present T-wave abnormality still present Electronically Signed On 10-05-2024 19:14:22 CDT by Law Romero M.D. [id number]
--- NOTE | 2024-10-02 17:37 | XRR_ITS ---
PROCEDURE INFORMATION: Exam: XR Chest Exam date and time: 10/02/2024 5:52 PM Age: 73 years old Clinical indication: Pain; Chest pressure; Additional info: Chest discomfort TECHNIQUE: Imaging protocol: Radiologic exam of the chest. Views: 1 view. COMPARISON: CR XR chest 1V portable [id number] 08/29/2024 12:01 PM FINDINGS: Tubes, catheters and devices: Overlying monitoring leads. Lungs: Unremarkable. No consolidation. Pleural spaces: Unremarkable. No pleural effusion. No pneumothorax. Heart/Mediastinum: Stable cardiomediastinal silhouette. Vasculature: Atherosclerotic aortic calcifications. Bones/joints: Unremarkable. XR/XR chest 1V portable [id number] IMPRESSION: No acute cardiopulmonary findings.
--- NOTE | 2024-10-02 17:48 | W.ED.CHESTPA ---
Documented by User: Ted Bishop DO 10/03/24 05:51 HPI - Chest Pain General: Chief Complaint: Chest Pain Stated Complaint: Heart Feels Funny Time Seen by Provider: 10/02/24 17:36 History of Present Illness: 73-year-old female presents emergency room complaining of her heart skipping a beat feels funny . She has no known cardiac history or history of arrhythmias. She did have a stroke within the last 2 months. She has not had any medication changes recently she currently is on aspirin and clopidogrel. She is not on any negative ionotropic. No change in medications recently. Associated symptoms: Reports palpitations; Deny abdominal pain, dyspnea or fever(s) Related Data Home Medications ?Medication ?Instructions ?Recorded ?Confirmed docusate sodium 100 mg capsule 100 mg PO BEDTIME 09/08/23 08/29/24 (Colace) acetaminophen 325 mg tablet 325 mg PO Q6H PRN Pain 11/03/23 08/29/24 (Tylenol) bisacodyl 10 mg rectal suppository 10 mg MI DAILY PRN Constipation 11/03/23 08/29/24 magnesium hydroxide 400 mg/5 mL 30 ml PO DAILY PRN Constipation 11/03/23 08/29/24 oral suspension (Milk of Magnesia) sodium phosphates 19 gram-7 118 ml MI DAILY PRN Constipation 11/03/23 08/29/24 gram/118 mL enema (Fleet Enema) albuterol sulfate 90 mcg/actuation 2 puff inhalation Q4H PRN 12/02/23 08/29/24 aerosol inhaler Shortness Of Breath doxepin 50 mg capsule 50 mg PO BEDTIME 12/02/23 08/29/24 brexpiprazole 1 mg tablet (Rexulti) 1 mg PO DAILY 08/29/24 08/29/24 ketoconazole 2 % shampoo 1 applic topical BID 08/29/24 08/29/24 loperamide 2 mg capsule 2 mg PO PRN PRN Constipation 08/29/24 08/29/24 Previous Rx's ?Medication ?Instructions ?Recorded citalopram 40 mg tablet 40 mg PO DAILY #90 tabs 09/13/22 clonazepam 1 mg tablet 1 mg PO BID PRN anxiety #60 tabs 12/13/22 polyethylene glycol 3350 17 17 g PO DAILY #510 grams 11/03/23 gram/dose oral powder (Miralax) pantoprazole 40 mg tablet,delayed 40 mg PO BID 6 weeks #84 tabs 11/25/23 release (Protonix) hydrocodone 5 mg-acetaminophen 325 1 tab PO Q6H PRN pain #14 tabs 12/16/23 mg tablet ondansetron 4 mg disintegrating 4 mg PO Q6H PRN nausea and 12/16/23 tablet vomiting #14 tabs aspirin 81 mg tablet,delayed 81 mg PO DAILY #90 tabs 08/30/24 release atorvastatin 40 mg tablet 40 mg PO BEDTIME #90 tabs 08/30/24 clopidogrel 75 mg tablet 75 mg PO DAILY #19 tabs 08/30/24 losartan 25 mg tablet 25 mg PO DAILY #90 tabs 08/30/24 metformin 500 mg tablet 500 mg PO BID #180 tabs 08/30/24 oseltamivir 30 mg capsule (Tamiflu) 30 mg PO BID #13 caps 08/30/24 Allergies Allergy/AdvReac Type Severity Reaction Status Date / Time Sulfa (Sulfonamide Allergy ADR-Dizzine Verified 08/13/24 11:02 Antibiotics) ss Review of Systems Const: Denies: fever(s) or chills Card: Reports: palpitations; Denies: chest pain Resp: Denies: dyspnea GI: Denies: abdominal pain : Denies: dysuria, urinary frequency or urinary urgency Musc: Denies: neck pain or back pain Skin/Breast: Denies: rash PFSH ED PFSH: Medical History Hepatic steatosis Symptomatic cholelithiasis Hx of gallstones SOLIS (obstructive sleep apnea) Chronic kidney disease Dyslipidemia Hyperglycemia Depression with anxiety Arthritis B/L knees, left ankle Open left ankle fracture Surgical History History of laparoscopic cholecystectomy History of colonoscopy (12/16/21) H/O hand surgery Right History of arthroplasty of left ankle Family History Mother Diabetes Father Cancer unknown type of cancer Social History Smoking and tobacco/nicotine status: former use of tobacco/nicotine Second hand smoke exposure: Yes Alcohol intake: never Substance/Drug Use: never Adopted: No Caregiver/support person: Yes Lives independently: Yes Household members: family Housing: Manufactured/Mobile home Marital status: / Number of children: 0 Highest education level completed: High School Graduate service: Yes status: Retired branch: [employer] Current occupational status: retired Pets and animals: No Sexually active: No Do you think of yourself as: Straight/Heterosexual Current gender identity: Female Special isaac needs: No Physical Exam Const: GENERAL APPEARANCE: cooperative ORIENTATION/CONSCIOUSNESS: Yes awake HENMT: COMMON NORMALS: normocephalic, atraumatic and hearing grossly normal bilaterally HEAD & SCALP: normocephalic and atraumatic Resp: COMMON NORMALS: normal respiratory effort, No retractions, No use of accessory muscles and clear to auscultation bilaterally AUSCULTATION: clear to auscultation bilaterally Cardio: COMMON NORMALS: regular rate, regular rhythm and No murmurs present (Cardio) RATE: regular rate RHYTHM: regular rhythm GI: COMMON NORMALS: Soft to palpation and No hepatosplenomegaly present AUSCULTATION: Yes normoactive bowel sounds PALPATION: Yes Soft to palpation, No Tenderness to palpation present (GI), No Guarding due to palpation present (GI) and Yes No hepatosplenomegaly present Extremity: COMMON NORMALS: normal to inspection, capillary refill normal, no clubbing, cyanosis or edema, no calf tenderness and no pedal edema Skin: COMMON NORMALS: no rashes or lesions noted GENERAL SKIN EXAM: no rashes or lesions noted Course Vital Signs: Vital signs: Vital Signs Temperature 98.2 F 10/02/24 17:34 Pulse Rate 71 10/02/24 21:21 Respiratory Rate 16 10/02/24 21:21 Blood Pressure 165/99 10/02/24 21:21 Pulse Oximetry 95 10/02/24 21:21 Oxygen Delivery Me thod Room Air 10/02/24 21:00 MDM - Chest Pain Medical Decision Making Care signed out to Dr. Keene at change of shift. See final notes for diagnosis and disposition. Lab Data 10/02/24 17:50 10/02/24 17:50 Radiology Impressions Chest X-Ray 10/02/24 17:37 IMPRESSION: No acute cardiopulmonary findings. Laboratory Results WBC 7.19 10^3/uL (3.29-11.43) 10/02/24 17:50 RBC 3.96 10^6/uL (3.85-5.65) 10/02/24 17:50 Hgb 11.80 g/dL (11.27-16.99) 10/02/24 17:50 Hct 37.9 % (36-47) 10/02/24 17:50 MCV 95.7 fl (85-98) 10/02/24 17:50 MCH 29.8 pg (27-33) 10/02/24 17:50 MCHC 31.1 g/dL (30-55) 10/02/24 17:50 RDW 13.5 % (12.1-15.1) 10/02/24 17:50 Plt Count 201 10^3/cmm (157-399) 10/02/24 17:50 MPV 9.5 fL (7.4-10.4) 10/02/24 17:50 Neut % (Auto) 54.8 % 10/02/24 17:50 Lymph % (Auto) 35.9 % 10/02/24 17:50 [place] % (Auto) 5.7 % 10/02/24 17:50 Eos % (Auto) 2.6 % 10/02/24 17:50 Baso % (Auto) 0.6 % 10/02/24 17:50 Neut # (Auto) 3.94 10^3/uL (1.8-7.7) 10/02/24 17:50 Lymph # (Auto) 2.6 10^3/uL (0.8-4.8) 10/02/24 17:50 [place] # (Auto) 0.4 10^3/uL (0.2-0.9) 10/02/24 17:50 Eos # (Auto) 0.2 10^3/uL (0.0-0.8) 10/02/24 17:50 Baso # (Auto) 0.0 10^3/uL (0.0-0.1) 10/02/24 17:50 Nucleated RBC % (auto) 0 % 10/02/24 17:50 Nucleated RBCs # 0.0 /100WBC 10/02/24 17:50 Sodium 141 mmol/L (136-145) 10/02/24 17:50 Potassium 4.2 mmol/L (3.5-5.1) 10/02/24 17:50 Chloride 102 mmol/L (98-107) 10/02/24 17:50 Carbon Dioxide 27 mmol/L (22-29) 10/02/24 17:50 Anion Gap 16.2 (5-19) 10/02/24 17:50 BUN 13 mg/dL (8-23) 10/02/24 17:50 Creatinine 1.2 mg/dL (0.5-0.9) H 10/02/24 17:50 GFR Calculation Not Reportable 10/02/24 17:50 Glucose 177 mg/dL (65-115) H 10/02/24 17:50 Calculated Osmolality 296 mOsm/kg (285-295) H 10/02/24 17:50 Calcium 9.1 mg/dL (8.5-10.5) 10/02/24 17:50 Total Bilirubin 0.4 mg/dL (0.15-1.2) 10/02/24 17:50 AST 12 U/L (0-32) 10/02/24 17:50 ALT 12 U/L (0-33) 10/02/24 17:50 Alkaline Phosphatase 106 U/L (35-105) H 10/02/24 17:50 Troponin T Baseline 8 ng/L (0-10) 10/02/24 17:50 Troponin T 120 Minute 7.53 ng/L (0-10) 10/02/24 20:21 Delta Troponin T -0.47 ABS# (0-10) L 10/02/24 20:21 Total Protein 6.4 g/dL (6.6-8.7) L 10/02/24 17:50 Albumin 3.9 g/dL (3.5-5.2) 10/02/24 17:50 Globulin 2.5 g/dL (1.3-4.6) 10/02/24 17:50 Urine Color Yellow (Yellow) 10/02/24 19:56 Urine Appearance Clear (CLEAR) 10/02/24 19:56 Urine pH 5.5 (5-7) 10/02/24 19:56 Ur Specific Percival 1.008 (1.005-1.030) 10/02/24 19:56 Urine Protein Negative (Negative) 10/02/24 19:56 Urine Glucose (UA) Negative (Normal) 10/02/24 19:56 Urine Ketones Negative (Negative) 10/02/24 19:56 Urine Blood Negative (Negative) 10/02/24 19:56 Urine Nitrate Negative (Negative) 10/02/24 19:56 Urine Bilirubin Negative (Negative) 10/02/24 19:56 Urine Urobilinogen 1.0 mg/dL (Negative) 10/02/24 19:56 Ur Leukocyte Esterase Trace (Negative) A 10/02/24 19:56 Urine RBC 0-2 /hpf (0-2) 10/02/24 19:56 Urine WBC 0-5 /hpf (0-5) 10/02/24 19:56 Ur Squamous Epith Cells 0-5 /hpf (0-5) 10/02/24 19:56 Amorphous Sediment Not Reportable 10/02/24 19:56 Urine Bacteria None seen /hpf (NONE) 10/02/24 19:56 Hyaline Casts 0-4 /lpf H 10/02/24 19:56 Discharge Plan Discharge Patient Disposition: Home Clinical Impression: Palpitations Condition: Stable Prescriptions: No Action pantoprazole [Protonix] 40 mg tablet,delayed release (DR/EC) 40 mg PO BID 42 Days Qty: 84 1RF citalopram 40 mg tablet 40 mg PO DAILY Qty: 90 1RF clonazepam 1 mg tablet 1 mg PO BID PRN (Reason: anxiety) Qty: 60 2RF docusate sodium [Colace] 100 mg capsule 100 mg PO BEDTIME albuterol sulfate 90 mcg/actuation HFA aerosol inhaler 2 puff INHALATION Q4H PRN (Reason: Shortness Of Breath) doxepin 50 mg capsule 50 mg PO BEDTIME hydrocodone-acetaminophen 5-325 mg tablet 1 tab PO Q6H PRN (Reason: pain) Qty: 14 0RF ondansetron 4 mg tablet,disintegrating 4 mg PO Q6H PRN (Reason: nausea and vomiting) Qty: 14 0RF magnesium hydroxide [Milk of Magnesia] 400 mg/5 mL Suspension 30 ml PO DAILY PRN (Reason: Constipation) bisacodyl 10 mg Suppository 10 mg MI DAILY PRN (Reason: Constipation) acetaminophen [Tylenol] 325 mg Tablet 325 mg PO Q6H PRN (Reason: Pain) Fleet Enema 19-7 gram/118 mL Enema 118 ml MI DAILY PRN (Reason: Constipation) polyethylene glycol 3350 [Miralax] 17 gram/dose powder 17 g PO DAILY Qty: 510 0RF ketoconazole 2 % shampoo 1 applic TOPICAL BID loperamide 2 mg Capsule 2 mg PO PRN PRN (Reason: Constipation) Rx Instructions: administer after each loose stool until symptoms controlled; do not exceed 8 mg per 24 hrs Rexulti 1 mg tablet 1 mg PO DAILY atorvastatin 40 mg Tablet 40 mg PO BEDTIME Qty: 90 0RF clopidogrel 75 mg Tablet 75 mg PO DAILY Qty: 19 0RF aspirin 81 mg Tablet,Delayed Release (Dr/Ec) 81 mg PO DAILY Qty: 90 0RF oseltamivir [Tamiflu] 30 mg Capsule 30 mg PO BID Qty: 13 0RF metformin 500 mg tablet 500 mg PO BID Qty: 180 0RF losartan 25 mg tablet 25 mg PO DAILY Qty: 90 0RF Discharge Orders: Discharge ED (Routine); Ordered 10/02/24 Ordered By: Carolyn Keene Referrals: Araceli Wooten MD [Staff Physician] - Discharge Diet: Usual diet Discharge Activity: Increase activity as tolerated Patient Instructions: Heart Palpitations (ED), Opioid Safety, Pain Management Activity Restrictions/Additional Instructions: Thank you for choosing [facility] for your healthcare needs today. Please realize this is an emergency room and that we are providing you with a medical screening exam and this may not be complete and all inclusive of all the testing and or work up that you may need to determine your ailment or severity of your illness. You have been screened and evaluated and felt safe for discharge. Health conditions do change or evolve sometimes and as such it is important that you follow up with your Primary Doctor to be re checked, 3-5 days is a general good time frame for follow up. You are always welcome to return to the ED for re assessment if your symptoms are worsening or you have new concerns Print Language: Uzbek Coding Level of Care Code ED Certified Medical Technician Assistant for Melissa Fwisabella Documented by User: Carolyn Keene MD 10/02/24 20:54 HPI - Chest Pain General: Chief Complaint: Chest Pain Stated Complaint: Heart Feels Funny Time Seen by Provider: 10/02/24 17:36 Related Data Home Medications ?Medication ?Instructions ?Recorded ?Confirmed docusate sodium 100 mg capsule 100 mg PO BEDTIME 09/08/23 08/29/24 (Colace) acetaminophen 325 mg tablet 325 mg PO Q6H PRN Pain 11/03/23 08/29/24 (Tylenol) bisacodyl 10 mg rectal suppository 10 mg MI DAILY PRN Constipation 11/03/23 08/29/24 magnesium hydroxide 400 mg/5 mL 30 ml PO DAILY PRN Constipation 11/03/23 08/29/24 oral suspension (Milk of Magnesia) sodium phosphates 19 gram-7 118 ml MI DAILY PRN Constipation 11/03/23 08/29/24 gram/118 mL enema (Fleet Enema) albuterol sulfate 90 mcg/actuation 2 puff inhalation Q4H PRN 12/02/23 08/29/24 aerosol inhaler Shortness Of Breath doxepin 50 mg capsule 50 mg PO BEDTIME 12/02/23 08/29/24 brexpiprazole 1 mg tablet (Rexulti) 1 mg PO DAILY 08/29/24 08/29/24 ketoconazole 2 % shampoo 1 applic topical BID 08/29/24 08/29/24 loperamide 2 mg capsule 2 mg PO PRN PRN Constipation 08/29/24 08/29/24 Previous Rx's ?Medication ?Instructions ?Recorded citalopram 40 mg tablet 40 mg PO DAILY #90 tabs 09/13/22 clonazepam 1 mg tablet 1 mg PO BID PRN anxiety #60 tabs 12/13/22 polyethylene glycol 3350 17 17 g PO DAILY #510 grams 11/03/23 gram/dose oral powder (Miralax) pantoprazole 40 mg tablet,delayed 40 mg PO BID 6 weeks #84 tabs 11/25/23 release (Protonix) hydrocodone 5 mg-acetaminophen 325 1 tab PO Q6H PRN pain #14 tabs 12/16/23 mg tablet ondansetron 4 mg disintegrating 4 mg PO Q6H PRN nausea and 12/16/23 tablet vomiting #14 tabs aspirin 81 mg tablet,delayed 81 mg PO DAILY #90 tabs 08/30/24 release atorvastatin 40 mg tablet 40 mg PO BEDTIME #90 tabs 08/30/24 clopidogrel 75 mg tablet 75 mg PO DAILY #19 tabs 08/30/24 losartan 25 mg tablet 25 mg PO DAILY #90 tabs 08/30/24 metformin 500 mg tablet 500 mg PO BID #180 tabs 08/30/24 oseltamivir 30 mg capsule (Tamiflu) 30 mg PO BID #13 caps 08/30/24 Allergies Allergy/AdvReac Type Severity Reaction Status Date / Time Sulfa (Sulfonamide Allergy ADR-Dizzine Verified 08/13/24 11:02 Antibiotics) ss PFSH ED PFSH: Medical History Hepatic steatosis Symptomatic cholelithiasis Hx of gallstones SOLIS (obstructive sleep apnea) Chronic kidney disease Dyslipidemia Hyperglycemia Depression with anxiety Arthritis B/L knees, left ankle Open left ankle fracture Surgical History History of laparoscopic cholecystectomy History of colonoscopy (12/16/21) H/O hand surgery Right History of arthroplasty of left ankle Family History Mother Diabetes Father Cancer unknown type of cancer Social History Smoking and tobacco/nicotine status: former use of tobacco/nicotine Second hand smoke exposure: Yes Alcohol intake: never Substance/Drug Use: never Adopted: No Caregiver/support person: Yes Lives independently: Yes Household members: family Housing: Manufactured/Mobile home Marital status: / Number of children: 0 Highest education level completed: High School Graduate service: Yes status: Retired branch: [employer] Current occupational status: retired Pets and animals: No Sexually active: No Do you think of yourself as: Straight/Heterosexual Current gender identity: Female Special isaac needs: No Course Vital Signs: Vital signs: Vital Signs Temperature 98.2 F 10/02/24 17:34 Pulse Rate 71 10/02/24 21:21 Respiratory Rate 16 10/02/24 21:21 Blood Pressure 165/99 10/02/24 21:21 Pulse Oximetry 95 10/02/24 21:21 Oxygen Delivery Ga thod Room Air 10/02/24 21:00 MDM - Chest Pain Medical Decision Making Care signed out to Dr. Keene at change of shift. See final notes for diagnosis and disposition. Patient care transitioned to la at shift change. Awaiting workup. Chest x-ray is negative. Lab work is fairly unremarkable. Urinalysis is negative for infection. Serial cardiac markers are negative. Assessment and plan: Palpitations - Discharged home - Discussed plan with patient. Answered any questions. - Evaluation and treatment of this problem were appropriate in the emergency setting. Lab Data 10/02/24 17:50 10/02/24 17:50 Radiology Impressions Chest X-Ray 10/02/24 17:37 IMPRESSION: No acute cardiopulmonary findings. Laboratory Results WBC 7.19 10^3/uL (3.29-11.43) 10/02/24 17:50 RBC 3.96 10^6/uL (3.85-5.65) 10/02/24 17:50 Hgb 11.80 g/dL (11.27-16.99) 10/02/24 17:50 Hct 37.9 % (36-47) 10/02/24 17:50 MCV 95.7 fl (85-98) 10/02/24 17:50 MCH 29.8 pg (27-33) 10/02/24 17:50 MCHC 31.1 g/dL (30-55) 10/02/24 17:50 RDW 13.5 % (12.1-15.1) 10/02/24 17:50 Plt Count 201 10^3/cmm (157-399) 10/02/24 17:50 MPV 9.5 fL (7.4-10.4) 10/02/24 17:50 Neut % (Auto) 54.8 % 10/02/24 17:50 Lymph % (Auto) 35.9 % 10/02/24 17:50 [place] % (Auto) 5.7 % 10/02/24 17:50 Eos % (Auto) 2.6 % 10/02/24 17:50 Baso % (Auto) 0.6 % 10/02/24 17:50 Neut # (Auto) 3.94 10^3/uL (1.8-7.7) 10/02/24 17:50 Lymph # (Auto) 2.6 10^3/uL (0.8-4.8) 10/02/24 17:50 [place] # (Auto) 0.4 10^3/uL (0.2-0.9) 10/02/24 17:50 Eos # (Auto) 0.2 10^3/uL (0.0-0.8) 10/02/24 17:50 Baso # (Auto) 0.0 10^3/uL (0.0-0.1) 10/02/24 17:50 Nucleated RBC % (auto) 0 % 10/02/24 17:50 Nucleated RBCs # 0.0 /100WBC 10/02/24 17:50 Sodium 141 mmol/L (136-145) 10/02/24 17:50 Potassium 4.2 mmol/L (3.5-5.1) 10/02/24 17:50 Chloride 102 mmol/L (98-107) 10/02/24 17:50 Carbon Dioxide 27 mmol/L (22-29) 10/02/24 17:50 Anion Gap 16.2 (5-19) 10/02/24 17:50 BUN 13 mg/dL (8-23) 10/02/24 17:50 Creatinine 1.2 mg/dL (0.5-0.9) H 10/02/24 17:50 GFR Calculation Not Reportable 10/02/24 17:50 Glucose 177 mg/dL (65-115) H 10/02/24 17:50 Calculated Osmolality 296 mOsm/kg (285-295) H 10/02/24 17:50 Calcium 9.1 mg/dL (8.5-10.5) 10/02/24 17:50 Total Bilirubin 0.4 mg/dL (0.15-1.2) 10/02/24 17:50 AST 12 U/L (0-32) 10/02/24 17:50 ALT 12 U/L (0-33) 10/02/24 17:50 Alkaline Phosphatase 106 U/L (35-105) H 10/02/24 17:50 Troponin T Baseline 8 ng/L (0-10) 10/02/24 17:50 Troponin T 120 Minute 7.53 ng/L (0-10) 10/02/24 20:21 Delta Troponin T -0.47 ABS# (0-10) L 10/02/24 20:21 Total Protein 6.4 g/dL (6.6-8.7) L 10/02/24 17:50 Albumin 3.9 g/dL (3.5-5.2) 10/02/24 17:50 Globulin 2.5 g/dL (1.3-4.6) 10/02/24 17:50 Urine Color Yellow (Yellow) 10/02/24 19:56 Urine Appearance Clear (CLEAR) 10/02/24 19:56 Urine pH 5.5 (5-7) 10/02/24 19:56 Ur Specific Percival 1.008 (1.005-1.030) 10/02/24 19:56 Urine Protein Negative (Negative) 10/02/24 19:56 Urine Glucose (UA) Negative (Normal) 10/02/24 19:56 Urine Ketones Negative (Negative) 10/02/24 19:56 Urine Blood Negative (Negative) 10/02/24 19:56 Urine Nitrate Negative (Negative) 10/02/24 19:56 Urine Bilirubin Negative (Negative) 10/02/24 19:56 Urine Urobilinogen 1.0 mg/dL (Negative) 10/02/24 19:56 Ur Leukocyte Esterase Trace (Negative) A 10/02/24 19:56 Urine RBC 0-2 /hpf (0-2) 10/02/24 19:56 Urine WBC 0-5 /hpf (0-5) 10/02/24 19:56 Ur Squamous Epith Cells 0-5 /hpf (0-5) 10/02/24 19:56 Amorphous Sediment Not Reportable 10/02/24 19:56 Urine Bacteria None seen /hpf (NONE) 10/02/24 19:56 Hyaline Casts 0-4 /lpf H 10/02/24 19:56 All radiology interpretation(s) finalized by discharge Discharge Plan Discharge Patient Disposition: Home Clinical Impression: Palpitations Condition: Stable Prescriptions: No Action pantoprazole [Protonix] 40 mg tablet,delayed release (DR/EC) 40 mg PO BID 42 Days Qty: 84 1RF citalopram 40 mg tablet 40 mg PO DAILY Qty: 90 1RF clonazepam 1 mg tablet 1 mg PO BID PRN (Reason: anxiety) Qty: 60 2RF docusate sodium [Colace] 100 mg capsule 100 mg PO BEDTIME albuterol sulfate 90 mcg/actuation HFA aerosol inhaler 2 puff INHALATION Q4H PRN (Reason: Shortness Of Breath) doxepin 50 mg capsule 50 mg PO BEDTIME hydrocodone-acetaminophen 5-325 mg tablet 1 tab PO Q6H PRN (Reason: pain) Qty: 14 0RF ondansetron 4 mg tablet,disintegrating 4 mg PO Q6H PRN (Reason: nausea and vomiting) Qty: 14 0RF magnesium hydroxide [Milk of Magnesia] 400 mg/5 mL Suspension 30 ml PO DAILY PRN (Reason: Constipation) bisacodyl 10 mg Suppository 10 mg MI DAILY PRN (Reason: Constipation) acetaminophen [Tylenol] 325 mg Tablet 325 mg PO Q6H PRN (Reason: Pain) Fleet Enema 19-7 gram/118 mL Enema 118 ml MI DAILY PRN (Reason: Constipation) polyethylene glycol 3350 [Miralax] 17 gram/dose powder 17 g PO DAILY Qty: 510 0RF ketoconazole 2 % shampoo 1 applic TOPICAL BID loperamide 2 mg Capsule 2 mg PO PRN PRN (Reason: Constipation) Rx Instructions: administer after each loose stool until symptoms controlled; do not exceed 8 mg per 24 hrs Rexulti 1 mg tablet 1 mg PO DAILY atorvastatin 40 mg Tablet 40 mg PO BEDTIME Qty: 90 0RF clopidogrel 75 mg Tablet 75 mg PO DAILY Qty: 19 0RF aspirin 81 mg Tablet,Delayed Release (Dr/Ec) 81 mg PO DAILY Qty: 90 0RF oseltamivir [Tamiflu] 30 mg Capsule 30 mg PO BID Qty: 13 0RF metformin 500 mg tablet 500 mg PO BID Qty: 180 0RF losartan 25 mg tablet 25 mg PO DAILY Qty: 90 0RF Discharge Orders: Discharge ED (Routine); Ordered 10/02/24 Ordered By: Carolyn Keene Referrals: Araceli Wooten MD [Staff Physician] - Discharge Diet: Usual diet Discharge Activity: Increase activity as tolerated Patient Instructions: Heart Palpitations (ED), Opioid Safety, Pain Management Activity Restrictions/Additional Instructions: Thank you for choosing [facility] for your healthcare needs today. Please realize this is an emergency room and that we are providing you with a medical screening exam and this may not be complete and all inclusive of all the testing and or work up that you may need to determine your ailment or severity of your illness. You have been screened and evaluated and felt safe for discharge. Health conditions do change or evolve sometimes and as such it is important that you follow up with your Primary Doctor to be re checked, 3-5 days is a general good time frame for follow up. You are always welcome to return to the ED for re assessment if your symptoms are worsening or you have new concerns Print Language: Uzbek Coding Level of Care Code ED Certified Medical Technician Assistant for Melissa Rao
[2024-10-02 18:01] LABS: Basophils % 0.6 %; Eosinophils # 0.2 10^3/uL (0.0-0.8); Eosinophils % 2.6 %; Hematocrit 37.9 % (36-47); Lymphocytes # 2.6 10^3/uL (0.8-4.8); Lymphocytes % 35.9 %; Mean Corpuscular HGB Conc 31.1 g/dL (30-55); Mean Corpuscular Hemoglobin 29.8 pg (27-33); Mean Corpuscular Volume 95.7 fl (85-98); Mean Platelet Volume 9.5 fL (7.4-10.4); Monocytes # 0.4 10^3/uL (0.2-0.9); Monocytes % 5.7 %; Neutrophils # 3.94 10^3/uL (1.8-7.7); Neutrophils % 54.8 %; Nucleated Red Blood Cells % 0 %; Platelet Count 201 10^3/cmm (157-399); Red Blood Count 3.96 10^6/uL (3.85-5.65); Red Cell Distribution Width 13.5 % (12.1-15.1); White Blood Count 7.19 10^3/uL (3.29-11.43)
[2024-10-02 18:36] LABS: Troponin(5th) Baseline 8 ng/L (0-10)
[2024-10-02 18:37] LABS: Alanine Aminotransferase 12 U/L (0-33); Albumin Level 3.9 g/dL (3.5-5.2); Alkaline Phosphatase 106 U/L (35-105); Anion Gap 16.2 (5-19); Aspartate Amino Transferase 12 U/L (0-32); Blood Urea Nitrogen 13 mg/dL (8-23); Calcium 9.1 mg/dL (8.5-10.5); Carbon Dioxide 27 mmol/L (22-29); Chloride 102 mmol/L (98-107); Creatinine Clr Calc Pharmacy 51.9362; Globulin 2.5 g/dL (1.3-4.6); Glucose 177 mg/dL (65-115); Osmolality Calculated 296 mOsm/kg (285-295); Potassium 4.2 mmol/L (3.5-5.1); Sodium 141 mmol/L (136-145); Total Bilirubin 0.4 mg/dL (0.15-1.2); Total Protein 6.4 g/dL (6.6-8.7)
[2024-10-02 20:04] LABS: Bilirubin Urine Negative (Negative); Blood Urine Negative (Negative); Glucose Urine UA Negative (Normal); Ketones Urine Negative (Negative); Leukocyte Esterase Urine Trace (Negative); Nitrate Urine Negative (Negative); Protein Urine Negative (Negative); Specific Gravity, Urine 1.008 (1.005-1.030); Urine Appearance Clear (CLEAR); Urine Color Yellow (Yellow); pH Urine 5.5 (5-7)
[2024-10-02 20:07] LABS: Bacteria Urine None Seen /hpf; Hyaline Casts Urine 0-4 /lpf; RBC Urine 0-2 /hpf (0-2); Squamous Epithelial Cell Urine 0-5 /hpf (0-5); WBC Urine 0-5 /hpf (0-5)
[2024-10-02 20:10] VITALS: BP 152/128; PULSE 68; RESP 16; O2SAT 96
[2024-10-02 20:48] VITALS: BP 171/84; PULSE 75; RESP 18; O2SAT 95
[2024-10-02 20:49] LABS: Troponin 5 2HR 7.53 ng/L (0-10); Troponin 5 2HR Delta -0.47 ABS# (0-10)
[2024-10-02 21:00] VITALS: BP 165/99; PULSE 68; RESP 16; O2SAT 96
[2024-10-02 21:21] VITALS: BP 165/99; PULSE 71; RESP 16; O2SAT 95
== END 2024-10-02 21:21 | disposition home or self-care (01) ==
PROVIDERS: Family Medicine; Emergency Provider Emergency Medicine; PCP Family Medicine
DX: R00.2 Palpitations (principal); Z79.82 Long term (current) use of aspirin; Z79.02 Long term (current) use of antithrombotics/antiplatelets; Z79.84 Long term (current) use of oral hypoglycemic drugs; Z87.891 Personal history of nicotine dependence; E78.5 Hyperlipidemia, unspecified; N18.9 Chronic kidney disease, unspecified
CPT/HCPCS: 36415; 71045; 80053; 81001; 84484; 85025; 93005; 99285

== ENCOUNTER → 2025-04-09 10:19 | Outpatient (BNVA) | payer MEDICARE, MEDICAID, SELFPAY | PROVIDERS: PCP Family Medicine; Visit Provider Surgery | DX: K21.9 Gastro-esophageal reflux disease without esophagitis (principal); K44.9 Diaphragmatic hernia without obstruction or gangrene | CPT/HCPCS: 99214 ==

== ENCOUNTER 2025-04-21 19:36 | Emergency (ER) | payer MEDICARE, MEDICAID, SELFPAY ==
--- OUTSIDE RECORDS SUMMARY | 2015-01-29 06:58 | XMS_ITS | Continuity of Care Document ---
[facility] Organization [facility] Address [address] [place] [address] Phone Care Team Providers Care Disposal Man Name Role Phone Jadon Dickerson MD Unavailable Unavailable Advance Directives Directive Yes / No Effective Date File Name No Information Encounters Encounter Description Practice Location Reason(s) For Visit Diagnoses Date Provider Providers Copied on Encounter [facility], [address], [place], [place], [id number], [place] tel:[phone] [facility] No Information Jayla Diop. [address], [place], [id number], [place]. tel:[phone] Family History Family Member Type Diagnosis Age At Onset No Information Payers Payer name Insurance type Covered libertarian ID Authoriza tion(s) No Information Social History Type Description Quantity Date Captured Comments Sex Female Smoking Status No Information Chief Complaint And Reason For Visit No Information Reason For Referral Reason For Referral No Information History Of Present Illness Encounter Date Complaint History Of Prese nt Illness No Information Functional Status Date Functional Assessmen t No Information Instructions Date Instruction Additional Infor mation No Information Assessments Type Assessment Date No Information Patient Care Teams Name Effective Dates (start - stop) Status Members No Information
--- OUTSIDE RECORDS SUMMARY | 2023-11-09 03:15 | XMS_ITS | Continuity of Care Document ---
Author Organization [facility] Address [address] [place] [address] Phone Care Team Providers Care Director Of Consumer Marketing Name Role Phone Hayden CLEARY MD, Lenny Unavailable Unavailable Allergies, Adverse Reactions, Alerts Substance Reaction Status Criticality Sulfa (Sulfonamide Antibiotics) Rash Active No Information Medications Medication Instructions Dosage Effective Dates (start - stop) Status Comments Avapro 300 mg tablet - Active Wellbutrin SR 200 mg tablet,extended release - Active Zoloft 100 mg tablet - Active Trileptal 600 mg tablet - Active Procedures Procedure Date BMI Documented Above Normal Limit F/U Pl an Doc X-ray exam knee, 3 views X-ray exam knee, 3 views Office/outpatient visit,est, mod 2023 X-ray exam knee, 3 views Global/Postop followup visit X-ray exam knee, 3 views Global/Postop followup visit Total Knee Replacement Revision of kneecap Xrays For Joint Survey, Sngl View Office/outpatient visit,est, mod 2022 Office/outpatient visit,est, mod 2021 X-ray exam knee, 4+ views Kenalog 40mg/mL Asp/Injection, Major Joint W/ Ultrasound Office/outpatient visit,est, mod 2021 X-ray exam knee, 3 views Office/outpatient visit,est, mod 2019 X-ray exam knee, 3 views Office/outpatient visit,est, mod 2018 X-ray exam knee, 3 views Global/Postop followup visit Xrays For Joint Survey, Sngl View Office/outpatient visit,est, mod 2017 Office/outpatient visit,est, mod 2016 X-ray exam knee, 3 views Kenalog Triamcinolone acetonide inj Asp/Injection, Major Joint W/ Ultrasound Office/outpatient visit,new, mod 2016 X-ray exam knee, 3 views Advance Directives Directive Yes / No Effective Date File Name No Information Encounters Encounter Description Practice Location Reason(s) For Visit Diagnoses Date Provider Providers Copied on Encounter Office/outpat ient visit,est, mod [facility], [address], [id number], [place] tel:[phone] [facility] knee (chief complaint) Presence of left artificial knee jointPresence of right artificial knee joint 4 Hayden Galvez. [address] [place] [address], [id number] , [place]. tel: [phone] Referring Provider: Lenny Deleon, [address], [address] . tel:[phone] [facility], [address], [id number], [place] tel:[phone] [facility] knee (chief complaint) Presence of right artificial knee joint 3 Jin Hernandes . [address] [place] [address], [id number] , [place]. tel: [phone] Referring Provider: Greta Alvarenga, [facility] [address], [place], [address] . tel:[phone] [facility], [address] [address], [place], [place], [id number], [place] tel:[phone] [facility] knee (chief complaint) Presence of right artificial knee joint 3 Jin ROTH Greta . [address] [facility], [address], [place], [place], [id number] , [place]. tel:[phone] Referring Provider: Greta Abdi WEIR FISHERMAN E, [address] [facility] [address], [place], [address] . tel:[phone] [facility], [address] [address], [place], [place], [id number], [place] tel:[phone] [facility] No Information 3 Hayden Galvez. [address] [address], [place], [place], [id number] , [place]. tel:[phone] Referring Provider: Lenny Deleon, [address] [facility] [address] [facility], [place], [address] . tel:[phone] [facility], [address] [address], [place], [place], [id number], [place] tel:[phone] [facility] Presence of left artificial knee joint 3 Hayden Galvez. [address] [facility], [address] [address], [place], [place], [id number] , [place]. tel:[phone] Office/outpat ient visit,est, mod [facility], [address] [place] [address], [place], [place], [id number], [place] tel:[phone] [facility] right knee pain (chief complaint) Unilateral primary osteoarthritis, right knee 3 Hayden Galvez. [address] [facility], [address] [place] [address], [place], [place], [id number] , [place]. tel:[phone] Referring Provider: Lenny Deleon, [address] [place] [address], [place], [address] . tel:[phone] [facility], [address] [place] [address], [place], [place], [id number], [place] tel:[phone] [facility] Unilateral primary osteoarthritis, right knee 3 Hayden Galvez. [address] [place] [address], [place], [place], [id number] , [place]. tel:[phone] Referring Provider: Greta Alvarenga, [address] [place] [address], [place], [address] . tel:[phone] Office/outpat ient visit,est, [facility], [address] [place] [address], [id number], [place] tel:[phone] [facility] right knee pain (chief complaint) Unilateral primary osteoarthritis, right knee 2 Hayden Galvez. [address] [place] [address], [place], [place], [id number] , [place]. tel:[phone] Referring Provider: Lenny Deleon, [address] [place] [address], [place], [address] . tel:[phone] Office/outpat ient visit,est, [facility], [address] [place] [address], [id number], [place] tel:[phone] [facility] right knee pain (chief complaint) Unilateral primary osteoarthritis, right knee 2 Jin Hernandes . [address] [place] [address], [place], [place], [id number] , [place]. tel:[phone] Referring Provider: Greta Alvarenga, [address] [place] [address], [place], [address] . tel:[phone] Office/outpat ient visit,est, [facility], [address] [place] [address], [id number], [place] tel:[phone] [facility] left knee tka (chief complaint) Presence of left artificial knee joint 4-202 0 Hayden Galvez. [facility] [address], [place], [place], [id number] , [place]. tel: [phone] Referring Provider: Lenny Deleon, [address] [place] [address], [place], [address] . tel:[phone] Office/outpat ient visit,est, mod [facility], [facility] [address], [id number], [place] [phone] [facility] knee (chief complaint) Presence of left artificial knee joint Feb-2 0-201 9 Hayden Galvez. [address] [place] [address], [id number] , [place]. tel: [phone] Referring Provider: Lenny Deleon, [address] [place] [address], [place], [address] . tel:[phone] [facility], [address] [place] [address], [id number], [place] [phone] [facility] knee (chief complaint) Presence of left artificial knee joint Sep- 7-201 8 Hayden Galvez. [address] [place] [address], [id number] , [place]. tel: [phone] Referring Provider: Lenny Deleon, [address] [place] [address], [address] . tel:[phone] Office/outpat ient visit,est, mod [facility], [address] [place] [address], [id number], [place] tel:[phone] [facility] left knee pain (chief complaint) Unilateral primary osteoarthritis, left knee Feb-2 3-201 8 Hayden Galvez. [address] [place] [address], [id number] , [place]. tel: [phone] Referring Provider: Lenny Deleon, [address] [facility] [address] [facility], [place], [address] . tel:[phone] [facility], [address] [address], [place], [place], [id number], tel:[phone] [facility] Unilateral primary osteoarthritis, left knee 8 Hayden Galvez. [address] [facility], [facility] [address], [place], [place], [id number] , [place]. tel:[phone] Office/outpat ient visit,[facility], [address] [address], [place], [place], [id number], tel:[phone] [facility] left knee pain (chief complaint) Unilateral primary osteoarthritis, left knee 7 Hayden Galvez. [address] [place] [address], [id number] , [place]. tel:[phone] Referring Provider: Lenny Blake MD T, [facility] [address] [facility], [place], [address] . tel:[phone] Office/outpat ient visit,[facility], [address] [address], [place], [place], [id number], [place] tel:[phone] [facility] left knee pain (chief complaint) Unilateral primary osteoarthritis, left kneeUnilateral primary osteoarthritis, right knee 7 Hayden Galvez. [address] [facility], [facility] [address], [place], [place], [id number] , [place]. tel:[phone] Referring Provider: Lenny Deleon, [address] [place] [address], [place], [address] . tel:[phone] Family History Family Member Type Diagnosis Age At Onset Mother Problem (finding) Hypertension Mother Problem (finding) Mental illness Mother Problem (finding) Brain aneurysm Mother Problem (finding) Depression Payers Payer name Insurance type Covered libertarian ID Authoriza tion(s) [employer] JONATHAN SMALL [id number] [facility] [id number] Social History Type Description Quantity Date Captured Comments Alcohol Use Details Caffeine Use Details Unknown Tobacco Use Status Ex-cigarette smoker 024 Smoking Status Former smoker Non-Smoking Tobacco Use Details : No Details Available : No Details Available Sex Female Vital Signs Date / Time: Height Weight BMI Pulse Rate Blood Pressure Temperature Respiratory Rate Body Surface Area Head Circumference Head Circ. Percentile Wt./Miah. Percentile BMI percentile Pulse Ox Inhaled Ox 8:06 AM 64.00 in 86.183 kg (190.00 lbs) 32.6 1 kg/m eter (2) 1.97 meter(2) Chief Complaint And Reason For Visit From encounter dated '11/09/2023 08:15'. knee (chief complaint). Description: The patient returns 1 year and 6 years from the above procedures. The patient has done well in the interim and notes no wound/skin problems, wound drainage, new neurological complaints, or abnormal swelling/calf pain. The patient notes no issues with the knee and is very happy with their results. Reason For Referral Reason For Referral No Information Plan Of Treatment Date Type Action Status Referral Ordered: X-ray exam knee, 3 views RT knee ordered Referral Ordered: X-ray exam knee, 4+ views RT knee ordered Referral Ordered: Xrays For Joint Survey, Sngl View RT knee ordered Referral Ordered: X-ray exam knee, 3 views LT knee ordered Referral Ordered: Xrays For Joint Survey, Sngl View LT knee ordered Referral Ordered: X-ray exam knee, 3 views Bilateral ordered History Of Present Illness Encounter Date Complaint History Of Prese nt Illness knee The patient retu rns 1 year and 6 years from the above procedures. The patient has done well in the interim and notes no wound/skin problems, wound drainage, new neurological complaints, or abnormal swelling/calf pain. The patient notes no issues with the knee and is very happy with their results. knee The patient retu rns 12 weeks from the above procedure. The patient has done well in the interim and notes no wound/skin problems, wound drainage, new neurological complaints, or abnormal swelling/calf pain. The patient notes they have been compliant with physical therapy and is progressing well. No other complaints noted. They are happy with their progress thus far. knee The patient retu rns 4 weeks from the above procedure. The patient has done well in the interim and notes no wound/skin problems, wound drainage, new neurological complaints, or abnormal swelling/calf pain. The patient notes they have been compliant with physical therapy and is progressing well. No other complaints noted. right knee pain Mallory Underwood is a 71 year old female. The patient has significant knee osteoarthritis and presents today in anticipation of planned knee arthroplasty. In addition to the history, today I have reviewed prior lab tests including: CBC, CMP, Hgb A1C, PT/INR. These tests are within acceptable parameters to proceed with planned knee arthroplasty. She presents with pain, swelling and decreased range of motion on the right side. She states that the symptoms have been chronic non-traumatic. The symptoms occur constantly with intermittent worsening. Currently the patient states that the symptoms are incapacitating. The pain is described as aching, sharp and shooting. The symptoms occur with activity. The symptoms are aggravated by daily activities, movement, standing and walking. In addition to right knee pain the patient is also experiencing crepitus, decreased mobility, difficulty bending, joint pain, limping, night pain and pain after activity. Pertinent negatives include fever, radicular symptoms, numbness and weakness. Pertinent negatives include radicular symptoms, groin pain radiating to the knee. The patient has had a previous x-ray. She has had prior injections, physical therapy/home exercises, ice, OTC meds. The patient has now failed greater than 12 months of non-operative treatment including physical therapy, icing, NSAIDs, brace/gait aides, and the progression/exacerbation of this chronic issue now causes daily pain limiting ADLs including sleep, dressing, self care, and all other desired activities. The patient is therefore indicated for knee arthroplasty. right knee pain Mallory Underwood is a 71 year old female. The patient has known knee osteoarthritis and returns for evaluation and treatment noting progression/exacerbation of symptoms. She presents with pain, swelling and decreased range of motion on the right side. She states that the symptoms have been chronic non-traumatic. The symptoms occur constantly with intermittent worsening. The problem is worse. Currently the patient states that the symptoms are incapacitating. The pain is described as aching, localized and sharp. The symptoms occur with activity. The symptoms are aggravated by ascending stairs, daily activities, descending stairs, movement, standing and walking. In addition to right knee pain the patient is also experiencing crepitus, decreased mobility, difficulty bending, limping, night pain and pain after activity. Pertinent negatives include fever, radicular symptoms, numbness and weakness. The patient has had a previous x-ray. She has had prior injections, physical therapy/home exercises, ice, OTC meds. Her most recent injection was 04/28/22 and provided no sustained relief. right knee pain Ms Underwood is a 71 year old female who complains of right knee pain. She presents with pain on the right side. She states that the symptoms have been chronic non-traumatic. The symptoms occur constantly with intermittent worsening. The problem is worse. Currently the patient states that the symptoms are mild-moderate. The pain is described as aching, sharp and throbbing. The symptoms occur with activity. She also reports additional pain in the lateral aspect on the right side. She rates her current pain as 4/10. The pain does not radiate. The symptoms are aggravated by squatting, standing, walking and ascending stairs. Mallory states that the symptoms are relieved by elevation, ice and rest. In addition to right knee pain the patient is also experiencing crunching, decreased mobility, limping, tenderness, stiffness and night pain. Pertinent negatives include chills, erythema, fever, instability, locking and tingling. The patient has had a previous x-ray. Prior NSAIDs include unspecified NSAIDS. She has had a brace or splint. Patient has not had any pertinent therapy for this condition. There were previous episodes. left knee tka The patient retu rns 2 years from the above procedure. The patient has done well in the interim and notes no wound/skin problems, wound drainage, new neurological complaints, or abnormal swelling/calf pain. They note no issues with the knee and are very happy with the result. No other complaints noted. She presents with TKA on the left side. knee The patient retu rns 1 year from the above procedure. The patient has done well in the interim and notes no wound/skin problems, wound drainage, new neurological complaints, or abnormal swelling/calf pain. She has mild pain with stairs. The patient notes no other issues with the knee and is very happy with their results. knee The patient retu rns 4 weeks from the above procedure. The patient has done well in the interim and notes no wound/skin problems, wound drainage, new neurological complaints, or abnormal swelling/calf pain. The patient notes they have been compliant with physical therapy and is progressing well. No other complaints noted. left knee pain Mallory Underwood is a 66 year old female. The patient has known knee osteoarthritis and returns now greater than 2 months from the last visit for this problem. She presents with pain and decreased rom on the left side. She states that the symptoms have been chronic non-traumatic. The symptoms occur constantly with intermittent worsening. The problem is unchanged. Currently the patient states that the symptoms are moderate-severe. The pain is described as aching, sharp and shooting. The symptoms occur with activity. The symptoms are aggravated by descending stairs and walking. Mallory states that the symptoms are relieved by rest. In addition to left knee pain the patient is also experiencing crepitus, joint pain and night pain. Pertinent negatives include fever, radicular symptoms, numbness and weakness. She has had prior injections, physical therapy/home exercises, ice, OTC meds. She has failed all reasonable non-op treatments and is indicated for TKA should she so choose. left knee pain Mallory Underwood is a 66 year old female. The patient has known knee osteoarthritis and returns now greater than 2 months from the last visit for this problem. She presents with pain, crepitus and decreased rom on the left side. She states that the symptoms have been chronic non-traumatic. The symptoms occur constantly with intermittent worsening. The problem is unchanged. Currently the patient states that the symptoms are moderate-severe. The pain is described as aching, sharp and shooting. The symptoms occur with activity. The symptoms are aggravated by descending stairs and walking. Mallory states that the symptoms are relieved by rest. In addition to left knee pain the patient is also experiencing crepitus, joint pain and night pain. Pertinent negatives include fever, radicular symptoms, numbness and weakness. She has had prior injections, physical therapy/home exercises, ice, OTC meds. left knee pain Ms Underwood is a 66 year old female who complains of left knee pain. She presents with pain, crepitus, decreased rom and stiffness on the left side. She states that the symptoms have been chronic non-traumatic. The symptoms occur constantly with intermittent worsening. The problem is worse. Currently the patient states that the symptoms are moderate-severe. The pain is described as aching, sharp and throbbing. The symptoms occur with activity. The patient is experiencing pain in the following location: generalized on the left side. She rates her worst pain as 8/10. She rates her current pain as 6/10. The pain does not radiate. The symptoms are aggravated by descending stairs, squatting, standing and walking. Mallory states that the symptoms are relieved by elevation, ice, OTC medicines and rest. In addition to left knee pain the patient is also experiencing clicking, crepitus, crunching, decreased mobility and limping. Pertinent negatives include chills, erythema, fever, instability, locking and tingling. The patient has had a previous x-ray. Prior NSAIDs include unspecified NSAIDS. She has been treated to the [facility] in October with only 3 weeks of relief on the left side. She has had rest, ice, heat, OTC meds. Patient has had previous therapy. Functional Status Date Functional Assessmen t No Information Instructions Date Instruction Additional Infor jaylin The patient will con tinue to be WBAT. They may continue to do activities as tolerated and follow up as needed. They were instructed to return sooner if needed for any issues, changes, or concerns. We discussed the role of joint prophylaxis with oral antibiotics prior to any dental or surgical procedures and that he most current evidence suggests this may not be needed after 2 years, but this is a patient preference in my opinion. They were instructed to call at any time with questions or concerns. Questions answered, verbalized understanding. Related to Presence of right artificial knee joint The patient will con tinue to be WBAT. They may progress to activities as tolerated and follow up at 12 months from surgery with repeat films and at 2, 5, and 10 years with x-rays for routine joint surveillance if doing well after that. We discussed the role of joint prophylaxis with oral antibiotics prior to any dental or surgical procedures and to call at any time with questions, concerns, or other issues. Questions answered, verbalized understanding. Related to Presence of right artificial knee joint The details of the p rocedure performed and imaging studies were discussed in detail with the patient. The patient will continue to be WBAT. They may progress to activities as tolerated and follow up at 3 months from surgery with repeat films if needed, or at 1, 2, 5, and 10 years with x-rays for routine joint surveillance if doing well. We discussed the role of joint prophylaxis with oral antibiotics prior to any dental or surgical procedures and to call at any time with questions, concerns, or other issues. Questions answered, verbalized understanding. Related to Presence of right artificial knee joint The patient has been cleared for and is indicated to proceed with total knee arthroplasty. We discussed in detail risks, benefits, and alternatives, restrictions, rehabilitation, expected outcomes, and possible complications including but not limited to: , medical complication, DVT/PE, infection, stiffness, loosening, instability, injury to nerves, blood vessels, and surrounding soft tissues, possible continued pain, subjective disappointment with the outcome, and possible need for future surgical intervention. The patient expressed understanding and would like to proceed with total knee arthroplasty. DVT prophylaxis will be with Aspirin and home SCD's. They would prefer to do this as an outpatient and surgery will be at [facility]. We discussed the perioperative pain plan and minimizing opioids. We discussed the need for a assistant chief train dispatcher and surgery and the role of my AFFILIATE MARKETING COORDINATOR in the post op period. We discussed the implant and surgical approach selection and the rationale for this. Anticipated length of stay will be home same day. We discussed the importance of the post op rehabilitation process in the overall outcome. They verbalized understanding. Related to Unilateral primary osteoarthritis, right knee Given the patient's failure of nonoperative treatment and progression of symptoms precluding desired activities and ADLs, we discussed they would be a candidate for total knee arthroplasty. We discussed the risks, benefits, and alternatives of elective major surgery and they would like to proceed. We will make arrangements to have preoperative clearance obtained as appropriate, including ordering labs today (CBC, CMP, PT/INR, A1C) and coordinate with PCP/medical specialists as needed. They would like to proceed with this as an outpatient as part of the rapid recovery program at [facility] and appear to be a candidate. We will arrange for preop education at the center and optimize nutrition. I would like to see the patient back once this is all complete to review in detail and make a final decision on operative intervention. We will obtain full length standing and calibrated lateral views to template pre-operatively. We discussed the option as well as the risks, benefits, and alternatives to cryoablation (Iovera) prior to TKA to attempt to decrease knee pain pre and post-operatively and expedite recovery. This FDA approved osteoarthritis treatment has been shown in RCTs to decrease pain, expedite recovery, and decrease or eliminate narcotic need post-operatively after knee arthroplasty while being proven safe and effective. We discussed in detail the periprocedural restrictions, rehabilitation, and expected outcomes for the procedure as well as possible complications including but not limited to: infection, skin irritation or reaction, nerve or blood vessel injury, continued pain, perceived failure of the procedure. The patient expressed their understanding and has elected to proceed at their earliest convenience. Questions answered, verbalized understanding and agreement. Related to Unilateral primary osteoarthritis, right knee After discussing the risks and benefits of an injection the patient would like to proceed with an injection into the involved knee today. We will also institute efforts on weight control/loss. They were given instruction on icing and activity modifications. She declined a prescription for PT and will continue her at home exercises. They were given a instructions on use of an oral NSAID/Tylenol with PCP approval. We discussed possible need for total (or partial if a candidate) knee replacement in the future if non-surgical treatment fails and the patient meets medical and rehabilitation criteria. We discussed replacement would need to be delayed at least 3 months after any injection due to infection risks. Further details of surgical intervention will be discussed if non-operative treatment fails to adequately control symptoms. The patient will follow up on an as needed basis. Questions answered, verbalized understanding. Related to Unilateral primary osteoarthritis, right knee The patient will con tinue to be WBAT. They may continue to do activities as tolerated and follow up at 5 years post op and every 5 years after with x-rays for routine joint surveillance or sooner if needed. We discussed the role of joint prophylaxis with oral antibiotics prior to any dental or surgical procedures and to call at any time with questions or concerns. Questions answered, verbalized understanding. Related to Presence of left artificial knee joint The patient will con tinue to be weight bearing as tolerated. They may continue to do activities as tolerated and follow up at 2, 5, and 10 years with x-rays for routine joint surveillance or sooner if needed. We discussed the role of joint prophylaxis with oral antibiotics prior to any dental or surgical procedures and to call at any time with questions or concerns. Questions answered, verbalized understanding. Related to Presence of left artificial knee joint The patient will con tinue to be WBAT. They may progress to activities as tolerated and follow up at 3 months from surgery with repeat films if needed, or at 1, 2, 5, and 10 years with x-rays for routine joint surveillance if doing well. We discussed the role of joint prophylaxis with oral antibiotics prior to any dental or surgical procedures and to call at any time with questions, concerns, or other issues. Questions answered, verbalized understanding. Related to Presence of left artificial knee joint She has failed great er than 6 months of reasonable nonoperative treatments, has daily pain interfering with ADLs, and is indicated for TKA. The patient has been medically cleared for knee arthroplasty. The patient has elected to proceed with total knee arthroplasty. We discussed in detail the risks, benefits, and alternatives, the janessa and post-operative restrictions, rehabilitation, expected outcomes, and possible complications including but not limited to: , DVT/PE, infection, loosening, instability, injury to nerves, blood vessels, and surrounding soft tissues, possible continued pain, possible need for future surgical intervention. The patient expressed understanding and would like to proceed. DVT prophylaxis will be with Aspirin and home SCD's and the patient plans to go home after discharge from the hospital. We discussed surgery will be at [facility] and the anticipated length of stay would likely be 1 or perhaps 2 nights. We discussed the importance of post-operative physical therapy and home exercises in the rehabilitation process.Questions answered, verbalized understanding. Related to Unilateral primary osteoarthritis, left knee Given the patient's failure of a reasonable trial of non-operative treatment options and progression of symptoms to a level which preclude desired activities, we discussed they would be a candidate for total knee arthroplasty. We discussed in detail the risks, benefits, and alternatives of knee arthroplasty, and the patient would like to proceed. We will make arrangements to have preoperative clearance obtained with assistance of the patient's primary care provider and any medical subspecialists as appropriate. We will coordinate appropriate dental clearance and pre-operative risk evaluation (appropriate BMI evaluation, diabetes control, skin preparation, etc) prior to surgery. I would like to see the patient back once this is all arranged to review in detail and make a final decision on operative intervention. We will obtain full length standing, calibrated lateral, and stress views as appropriate to template pre-operatively. Questions answered, verbalized understanding. Related to Unilateral primary osteoarthritis, left knee She currently has no pain and no treatment is indicated beyond weight loss and her home strengthening exercises. Related to Unilateral primary osteoarthritis, right knee Given the patient's failure of a reasonable trial of non-operative treatment options and progression of symptoms to a level which preclude desired activities, we discussed they would be a candidate for total knee arthroplasty. We discussed in detail the risks, benefits, and alternatives of knee arthroplasty, and the patient would like to proceed. We will make arrangements to have preoperative clearance obtained with assistance of the patient's primary care provider and any medical subspecialists as appropriate. We will coordinate appropriate dental clearance and pre-operative risk evaluation (appropriate BMI evaluation, diabetes control, skin preparation, etc) prior to surgery. I would like to see the patient back once this is all arranged to review in detail and make a final decision on operative intervention. We will obtain full length standing, calibrated lateral views as appropriate to template pre-operatively. She would like to do this in early September or late August of 2017. In the interim she would like a cortisone injection to try to get through the holidays. We will institute a short course of PT for a home strengthening program and discussed weight loss in the interim would be beneficial. Questions answered, verbalized understanding. Related to Unilateral primary osteoarthritis, left knee Assessments Type Assessment Date assessment Presence of left artificial knee joint assessment Presence of right artificial kne e joint Patient Care Teams Name Effective Dates (start - stop) Status Members No Information
[2025-04-21 19:42] VITALS: BP 169/94; PULSE 64; RESP 21; TEMP 37.2; O2SAT 98
--- NOTE | 2025-04-21 19:47 | CTR_ITS ---
PROCEDURE INFORMATION: Exam: CT Head Without Contrast Exam date and time: 04/21/2025 8:13 PM Age: 74 years old Clinical indication: Syncope and collapse; EMS arrival from [facility] for syncopal episode; Additional info: Syncope, AMS TECHNIQUE: Imaging protocol: Computed tomography of the head without contrast. Radiation optimization: All CT scans at this facility use at least one of these dose optimization techniques: automated exposure control; mA and/or kV adjustment per patient size (includes targeted exams where dose is matched to clinical indication); or iterative reconstruction. COMPARISON: MR head wo con* [id number] 08/29/2024 12:36 PM RADIATION DOSE METRICS: Total DLP (mGy-cm): 1020 FINDINGS: Brain: Age-related brain parenchymal atrophy. Areas of hypoattenuation in the periventricular and subcortical deep white matter likely on the basis of chronic microvascular ischemic changes. No acute intra cranial hemorrhage. No mass effect or midline shift. No definitive CT evidence of acute territorial infarction. Cerebral ventricles: No ventriculomegaly. Paranasal sinuses: Visualized sinuses are unremarkable. No fluid levels. Mastoid air cells: Visualized mastoid air cells are well aerated. Bones: Intact calvarium. Soft tissues: Unremarkable. CT/CT head wo con* [id number] IMPRESSION: No acute intracranial abnormality. Senescent changes.
--- NOTE | 2025-04-21 19:49 | ECG_ITS ---
[facility]: 2025-04[facility]21 Pat Name: Mallory Lynch Department: Room: Gender: Female Cell Inspector: : [id number] Requested By: Pavel Brown Order Number: [id number] Medina MD: Matteo Velazquez M.D. Measurements Intervals [place] Rate: 62 P: 29 [place]: 149 QRS: 6 QRSD: 90 T: 40 QT: 425 QTc: 433 Interpretive Statements SINUS RHYTHM WITH OCCASIONAL SUPRAVENTRICULAR PREMATURE COMPLEXES Compared to ECG 10/02/2024 17:35:40 Ventricular premature complex(es) no longer present Electronically Signed On 04-22-2025 12:52:58 CDT by Matteo Velazquez M.D. [email or web address]
--- OUTSIDE RECORDS SUMMARY | 2025-04-21 19:59 | XMS_ITS | Encounter Summary ---
Author Organization [facility] Address [address] [place] [address] Care Team Providers Care Maintenance And Repair Worker Name Role Phone Unavailable Primary Care Provider Unavailabl e Encounter Details Date Type Department Care Team (Late st Contact Info) Description 04/16/2025 External Device Data [facility] Provider, Abstract NO ADDRESS ON FILE Social History Tobacco Use Types Packs/Day Years Used Date Smoking Tobacco: Some Days Cigarettes Alcohol Use Standard Drinks/Week Comments Not Currently 0 (1 standard drink = 0.6 oz pure alcohol) unknown if out of facility with family Feeling Safe Answer Date Recorded Are you in a relationship wi th someone who hurts you emotionally and/or physically? 

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
--- OUTSIDE RECORDS SUMMARY | 2025-04-21 19:59 | XMS_ITS | Clinical Summary ---
Author Organization [facility] Address [address] Attn: Epic Prelude ADT JONATHAN SNYDER [id number] Care Team Providers Care Plastics Heat Welder Name Role Phone Unavailable Primary Care Provider Unavailabl e Allergies Active Allergy Reactions Criticality Noted Date Comments Sulfa (Sulfonamide Antibiotics) Dizziness Low /10/2023 rash Medications atorvastatin (LIPITOR) 10 mg tablet 01/23/2024 Active Rexulti 1 mg Tablet 02/23/2024 Active citalopram (CeleXA) 40 mg tablet 01/23/2024 Active clonazePAM (KlonoPIN) 1 mg tablet 02/27/2024 Active doxepin (SINEquan) 50 mg capsule 01/23/2024 Active ketoconazole (NIZORAL) 2 % Shampoo 02/21/2024 Active pantoprazole (PROTONIX) 40 mg Tablet, Delayed Release (E.C.) 01/23/2024 Active polyethylene glycol 3350 (MIRALAX) 17 gram/dose Powder Take by mouth daily. Dissolve in 8 ounces of fluid and drink entire liquid Active HYDROcodone-marvel taminophen (NORCO) 5-325 mg tablet Take 1 Tablet by mouth every 6 hours as needed. Active aspirin (ECOTRIN EC) 81 mg Tablet, Delayed Release (E.C.) Take 81 mg by mouth daily. Active Active Problems No known active problems Encounters Date Type Department Care Team Description 04/16/2025 External Device Data [facility] ABSTRACTION Provider, Abstract 04/09/2025 External Device Data [facility] ABSTRACTION Provider, Abstract 04/09/2025 Abstract [facility] [address] [place] [address] Provider, Abstract 02/06/2025 External Device Data [facility] ABSTRACTION Provider, Abstract 02/06/2025 External Device Data [facility]CTION Provider, Abstract 02/06/2025 External Device Data [facility] Provider, Abstract 02/05/2025 External Device Data [facility]CTION Provider, Abstract from Last 3 Months Family History Medical History Relation Name Comments Colon Cancer Neg Hx Social History Tobacco Use Types Packs/Day Years Used Date Smoking Tobacco: Some Days Cigarettes Tobacco Cessation:Ready to Q uit: Not Asked; Counseling Given: Not Answered Alcohol Use Standard Drinks/Week Comments Not Currently [...] on file 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 Gender Identity Not on file Sexual Orientation Not on file Last Filed Vital Signs Vital Sign Reading Time Taken Comments Blood Pressure 140/85 09/18/2024 1:17 PM PREPARED FOODS ASSOCIATE Pulse 61 09/18/2024 1:17 PM PREPARED FOODS ASSOCIATE Temperature - - Respiratory Rate 16 05/10/2024 10:34 AM CDT Oxygen Saturation 92% 09/18/2024 1:17 PM PREPARED FOODS ASSOCIATE Inhaled Oxygen Concentration - - Weight 111.1 kg (245 lb) 09/18/2024 1:17 PM PREPARED FOODS ASSOCIATE Height 167.6 cm (5' 6 ) 09/18/2024 1:17 PM PREPARED FOODS ASSOCIATE Body Mass Index 39.54 09/18/2024 1:17 PM PREPARED FOODS ASSOCIATE Plan of Treatment Health Maintenance Due Date Last Done Comments DTAP/TDAP/TD VACCINES (1 - Tdap) 10/16/1970 PNEUMOCOCCAL VACCINE 50+ YEA RS (1 of 2 - PCV) 10/16/1970 BREAST CANCER SCREENING 1991 COLORECTAL SCREENING 10/16/1996 Colorectal Cancer Screening 10/16/1996 FIT-DNA Q 3 years 10/16/1996 FIT/FOBT Q 1 year 10/16/1996 Flex Sig/CT Colonography Q 5 years 10/16/1996 ZOSTER VACCINE (1 of 2) 10/16/2001 OSTEOPOROSIS SCREENING 10/16/2016 INFLUENZA VACCINE (#1) 2025 05/31/2022, 2020 RSV VACCINE (60+ or ) (1 - 1-dose 75+ series) 10/16/2026 Medical Devices Implanted Type Area General Maintenance Helper Device Identifier Shelf Expiration Date Model / Serial / Lot Capsule Fung Ph Testing [id number] - [id number] Implanted:Qty: 1 on 05/10/2024 by Christiano Winston MD at [facility] Other N/A: Esophagus [employer] COVIDIEN decal decorator. GIVEN [id number] 08/16/2025 [id number]-[id number] / / [id number] Description:implanted at 30 ID#[id number] Insurance BCBS MEDICARE HMO Advance Directives For more information, please contact: [phone] * Full Code (Latest Code Status on File) Date Activated Date Inactivated Comments 05/10/2024 9:29 AM 05/10/2024 12:47 PM
[2025-04-21 20:01] VITALS: BP 179/93; PULSE 62; RESP 18; O2SAT 93
[2025-04-21 20:04] LABS: Hematocrit 34.5 % (36-47); Hemoglobin 11.30 g/dL (11.27-16.99); Mean Corpuscular HGB Conc 32.8 g/dL (30-55); Mean Corpuscular Hemoglobin 30.1 pg (27-33); Mean Corpuscular Volume 92.0 fl (85-98); Nucleated Red Blood Cells % 0 %; Platelet Count 213 10^3/cmm (157-399); Red Blood Count 3.75 10^6/uL (3.85-5.65); White Blood Count 7.62 10^3/uL (3.29-11.43)
[2025-04-21 20:08] LABS: Glucose Urine UA Negative (Normal); Nitrate Urine Negative (Negative); Specific Gravity, Urine 1.010 (1.005-1.030)
[2025-04-21 20:12] LABS: Add Urine Microscopic? YES
--- NOTE | 2025-04-21 20:15 | W.ED.AMS ---
HPI - Altered Mental Status General: Chief Complaint: Altered Mental Status Stated Complaint: HIGH BLOOD PRESSURE Time Seen by Provider: 04/21/25 19:38 History of Present Illness: Patient is a 74-year-old female resident of [facility] who was brought to the emergency department after an episode of syncope. Per report, the patient left the halfway with family around 1500 today and consumed marijuana from a dispensary, which differs from her usual homegrown marijuana. Upon return to the halfway, staff reported that she passed out. When she regained consciousness, halfway staff noted slurred speech and possible facial drooping, raising concerns for a TIA. The patient reports feeling a little more stable now but states she can't do nothing and feels like a wet noodle. She believes she may have had a stroke when she passed out, stating things felt funny. Patient has a documented history of TIAs. Related Data Home Medications ?Medication ?Instructions ?Recorded ?Confirmed docusate sodium 100 mg capsule 100 mg PO BEDTIME 09/08/23 04/09/25 (Colace) acetaminophen 325 mg tablet 325 mg PO Q6H PRN Pain 11/03/23 04/09/25 (Tylenol) bisacodyl 10 mg rectal suppository 10 mg [place] DAILY PRN Constipation 11/03/23 04/09/25 magnesium hydroxide 400 mg/5 mL 30 ml PO DAILY PRN Constipation 11/03/23 04/09/25 oral suspension (Milk of Magnesia) sodium phosphates 19 gram-7 118 ml [place] DAILY PRN Constipation 11/03/23 04/09/25 gram/118 mL enema (Fleet Enema) albuterol sulfate 90 mcg/actuation 2 puff inhalation Q4H PRN 12/02/23 04/09/25 aerosol inhaler Shortness Of Breath doxepin 50 mg capsule 50 mg PO BEDTIME 12/02/23 04/09/25 brexpiprazole 1 mg tablet (Rexulti) 1 mg PO DAILY 08/29/24 04/09/25 ketoconazole 2 % shampoo 1 applic topical BID 08/29/24 04/09/25 loperamide 2 mg capsule 2 mg PO PRN PRN Constipation 08/29/24 04/09/25 Previous Rx's ?Medication ?Instructions ?Recorded citalopram 40 mg tablet 40 mg PO DAILY #90 tabs 09/13/22 clonazepam 1 mg tablet 1 mg PO BID PRN anxiety #60 tabs 12/13/22 polyethylene glycol 3350 17 17 g PO DAILY #510 grams 11/03/23 gram/dose oral powder (Miralax) pantoprazole 40 mg tablet,delayed 40 mg PO BID 6 weeks #84 tabs 11/25/23 release (Protonix) hydrocodone 5 mg-acetaminophen 325 1 tab PO Q6H PRN pain #14 tabs 12/16/23 mg tablet ondansetron 4 mg disintegrating 4 mg PO Q6H PRN nausea and 12/16/23 tablet vomiting #14 tabs aspirin 81 mg tablet,delayed 81 mg PO DAILY #90 tabs 08/30/24 release atorvastatin 40 mg tablet 40 mg PO BEDTIME #90 tabs 08/30/24 clopidogrel 75 mg tablet 75 mg PO DAILY #19 tabs 08/30/24 losartan 25 mg tablet 25 mg PO DAILY #90 tabs 08/30/24 metformin 500 mg tablet 500 mg PO BID #180 tabs 08/30/24 oseltamivir 30 mg capsule (Tamiflu) 30 mg PO BID #13 caps 08/30/24 Allergies Allergy/AdvReac Type Severity Reaction Status Date / Time Sulfa (Sulfonamide Allergy ADR-Dizzine Verified 04/21/25 19:47 Antibiotics) ss PFSH ED PFSH: Medical History (Updated 04/21/25 @ 21:56 by Pavel Watts DO) Hepatic steatosis Symptomatic cholelithiasis Hx of gallstones SOLIS (obstructive sleep apnea) Chronic kidney disease Dyslipidemia Hyperglycemia Depression with anxiety Arthritis B/L knees, left ankle Open left ankle fracture Surgical History History of laparoscopic cholecystectomy History of colonoscopy (12/16/21) H/O hand surgery Right History of arthroplasty of left ankle Family History Mother Diabetes Father Cancer unknown type of cancer Social History (Updated 04/09/25 @ 10:34 by BERTHA Smith) Smoking and tobacco/nicotine status: current every day tobacco/nicotine user Second hand smoke exposure: Yes Alcohol intake: never Substance/Drug Use: never Adopted: No Caregiver/support person: Yes Lives independently: Yes Household members: family Housing: Manufactured/Mobile home Marital status: / Number of children: 0 Highest education level completed: High School Graduate service: Yes status: Retired branch: [employer] Current occupational status: retired Pets and animals: No Sexually active: No Do you think of yourself as: Straight/Heterosexual Current gender identity: Female Special isaac needs: No Physical Exam Const: COMMON NORMALS: no acute distress GENERAL APPEARANCE: cooperative; not ill appearing and not frail appearing HENMT: COMMON NORMALS: normocephalic, atraumatic and Normal external nose present HEAD & SCALP: normocephalic and atraumatic FACE & SINUS: normal facial exam and face symmetric NOSE: Normal external nose present Eye: COMMON NORMALS: Equal, round and reactive pupils present and EOMs intact bilaterally PUPIL: Yes Equal, round and reactive pupils present Neck/C-Spine: GENERAL: Yes trachea midline Chest: CHEST: Yes Symmetrical chest wall rise Resp: COMMON NORMALS: normal respiratory effort, No retractions, No use of accessory muscles and clear to auscultation bilaterally AUSCULTATION: clear to auscultation bilaterally Cardio: COMMON NORMALS: regular rate and regular rhythm RATE: regular rate RHYTHM: regular rhythm GI: COMMON NORMALS: Normal to inspection, nondistended, normoactive bowel sounds present Extremity: COMMON NORMALS: no pedal edema Neuro: RUSSELL COMA SCALE: document GCS findings [place] coma scale eye opening: Spontaneous [place] coma scale verbal response: Orientated [place] coma scale motor response: Obey commands Russell coma scale total score: 15 SENSORY EXAM: Yes extremities (intact) Psych: COMMON NORMALS: speech normal SPEECH: Yes normal speech Skin: COMMON NORMALS: no rashes or lesions noted GENERAL SKIN EXAM: no rashes or lesions noted Course Vital Signs: Vital signs: Vital Signs Temperature 98.9 F 04/21/25 19:42 Pulse Rate 64 04/21/25 22:41 Respiratory Rate 18 04/21/25 20:01 Blood Pressure 171/116 04/21/25 22:41 Pulse Oximetry 98 04/21/25 22:41 Oxygen Delivery Me thod Room Air 04/21/25 22:00 MDM - Altered Mental Status Medical Decision Making 74-year-old female with syncopal episode and some transient mental status changes in the halfway. She has recovered now. She is essentially baseline. Head CT is nonacute. CBC and BMP are not actionable. Urinalysis is negative. Alcohol is nondetectable. She did admit to marijuana use earlier in the day which may be the culprit. She has no acute ST changes. She is stable at this point, and back to baseline. She will be discharged. Return for any new or worsening symptoms.. Lab Data 04/21/25 19:25 04/21/25 19:[address] 04/21/25 19:47 IMPRESSION: No acute intracranial abnormality. Senescent changes. Laboratory Results WBC 7.62 10^3/uL (3.29-11.43) 04/21/25 19: RBC 3.75 10^6/uL (3.85-5.65) L 04/21/25: Hgb 11.30 g/dL (11.27-16.99) 04/21/25: Hct 34.5 % (36-47) L 04/21/25: MCV 92.0 fl (85-98) 04/21/25: MCH 30.1 pg (27-33) 04/21/25: MCHC 32.8 g/dL (30-55) 04/21/25: RDW 13.2 % (12.1-15.1) 04/21/25: Plt Count 213 10^3/cmm (157-399) 04/21/25: MPV 10.0 fL (7.4-10.4) 04/21/25: Neut % (Auto) 72.0 % 04/21/25: Lymph % (Auto) 21.7 % 04/21/25: [place] % (Auto) 4.9 % 04/21/25: Eos % (Auto) 0.8 % 04/21/25: Baso % (Auto) 0.5 % 04/21/25: Neut # (Auto) 5.49 10^3/uL (1.8-7.7) 04/21/25: Lymph # (Auto) 1.7 10^3/uL (0.8-4.8) 04/21/25 19: [place] # (Auto) 0.4 10^3/uL (0.2-0.9) 04/21/25 19:25 Eos # (Auto) 0.1 10^3/uL (0.0-0.8) 04/21/25 19:25 Baso # (Auto) 0.0 10^3/uL (0.0-0.1) 04/21/25 19:25 Nucleated RBC % (auto) 0 % 04/21/25 19:25 Nucleated RBCs # 0.0 /100WBC 04/21/25 19:25 Sodium 133 mmol/L (136-145) L 04/21/25 19:25 Potassium 3.8 mmol/L (3.5-5.1) 04/21/25 19:25 Chloride 99 mmol/L (98-107) 04/21/25 19:25 Carbon Dioxide 24 mmol/L (22-29) 04/21/25 19:25 Anion Gap 13.8 (5-19) 04/21/25 19:25 BUN 13 mg/dL (8-23) 04/21/25 19:25 Creatinine 1.2 mg/dL (0.5-0.9) H 04/21/25 19:25 GFR Calculation Not Reportable 04/21/25 19:25 Glucose 129 mg/dL (65-115) H 04/21/25 19:25 Calculated Osmolality 278 mOsm/kg (285-295) L 04/21/25:25 Calcium 9.6 mg/dL (8.5-10.5) 04/21/25: Magnesium 1.9 mg/dL (1.7-2.3) 04/21/25 19:25 Total Bilirubin 0.4 mg/dL (0.15-1.2) 04/21/25 19:25 AST 10 U/L (0-32) 04/21/25 19:25 ALT 8 U/L (0-33) 04/21/25 19:25 Alkaline Phosphatase 102 U/L (35-105) 04/21/25 19:25 Creatine Kinase 41 U/L (26-192) 04/21/25 19:25 Total Protein 6.9 g/dL (6.6-8.7) 04/21/25 19:25 Albumin 4.1 g/dL (3.5-5.2) 04/21/25 19:25 Globulin 2.8 g/dL (1.3-4.6) 04/21/25 19:25 Urine Color [place] (Yellow) A 04/21/25 19:57 Urine Appearance Clear (CLEAR) 04/21/25 19:57 Urine pH 6.0 (5-7) 04/21/25 19:57 Ur Specific [place] 1.010 (1.005-1.030) 04/21/25 19:57 Urine Protein Negative (Negative) 04/21/25 19:57 Urine Glucose (UA) Negative (Normal) 04/21/25 19:57 Urine Ketones Negative (Negative) 04/21/25 19:57 Urine Blood Negative (Negative) 04/21/25 19:57 Urine Nitrate Negative (Negative) 04/21/25 19:57 Urine Bilirubin Negative (Negative) 04/21/25 19:57 Urine Urobilinogen 1.0 mg/dL (Negative) 04/21/25 19:57 Ur Leukocyte Esterase Negative (Negative) 04/21/25 19:57 Urine RBC 0-2 /hpf (0-2) 04/21/25 19:57 Urine WBC 0-5 /hpf (0-5) 04/21/25 19:57 Ur Squamous Epith Cells 0-5 /hpf (0-5) 04/21/25 19:57 Amorphous Sediment Not Reportable 04/21/25 19:57 Urine Bacteria None seen /hpf (NONE) 04/21/25 19:57 Hyaline Casts 0.81 /lpf 04/21/25 19:57 Ethyl Alcohol < 10 mg/dL (0-10) 04/21/25 19:25 All radiology interpretation(s) finalized by discharge Discharge Plan Discharge Patient Disposition: Home Clinical Impression: Syncope Condition: Stable Prescriptions: No Action pantoprazole [Protonix] 40 mg tablet,delayed release (DR/EC) 40 mg PO BID 42 Days Qty: 84 1RF citalopram 40 mg tablet 40 mg PO DAILY Qty: 90 1RF clonazepam 1 mg tablet 1 mg PO BID PRN (Reason: anxiety) Qty: 60 2RF docusate sodium [Colace] 100 mg capsule 100 mg PO BEDTIME albuterol sulfate 90 mcg/actuation HFA aerosol inhaler 2 puff INHALATION Q4H PRN (Reason: Shortness Of Breath) doxepin 50 mg capsule 50 mg PO BEDTIME hydrocodone-acetaminophen 5-325 mg tablet 1 tab PO Q6H PRN (Reason: pain) Qty: 14 0RF ondansetron 4 mg tablet,disintegrating 4 mg PO Q6H PRN (Reason: nausea and vomiting) Qty: 14 0RF magnesium hydroxide [Milk of Magnesia] 400 mg/5 mL Suspension 30 ml PO DAILY PRN (Reason: Constipation) bisacodyl 10 mg Suppository 10 mg [place] DAILY PRN (Reason: Constipation) acetaminophen [Tylenol] 325 mg Tablet 325 mg PO Q6H PRN (Reason: Pain) Fleet Enema 19-7 gram/118 mL Enema 118 ml [place] DAILY PRN (Reason: Constipation) polyethylene glycol 3350 [Miralax] 17 gram/dose powder 17 g PO DAILY Qty: 510 0RF ketoconazole 2 % shampoo 1 applic TOPICAL BID loperamide 2 mg Capsule 2 mg PO PRN PRN (Reason: Constipation) Rx Instructions: administer after each loose stool until symptoms controlled; do not exceed 8 mg per 24 hrs Rexulti 1 mg tablet 1 mg PO DAILY atorvastatin 40 mg Tablet 40 mg PO BEDTIME Qty: 90 0RF clopidogrel 75 mg Tablet 75 mg PO DAILY Qty: 19 0RF aspirin 81 mg Tablet,Delayed Release (Dr/Ec) 81 mg PO DAILY Qty: 90 0RF oseltamivir [Tamiflu] 30 mg Capsule 30 mg PO BID Qty: 13 0RF metformin 500 mg tablet 500 mg PO BID Qty: 180 0RF losartan 25 mg tablet 25 mg PO DAILY Qty: 90 0RF Discharge Orders: Discharge ED (Routine); Ordered 04/21/25 Ordered By: Pavel Watts Referrals: John Young MD [Primary Care Provider, Family Practice] Patient Instructions: Syncope (ED), Altered Mental Status (ED), Opioid Safety, Pain Management, Patient Portal & Shimon Instructions Activity Restrictions/Additional Instructions: Return for repeated episodes of syncope or passing out, worsening mental status, fever, any other concerning symptoms. Avoid use of marijuana for the near future, as it may have been a culprit. Print Language: Faroese Coding Level of Care Code ED Instrument Worker for Melissa Rao NIH stroke score NIHSS Level Of Consciousness - 1a: 0 Level Of Consciousness Questions - 1b: Both Correct Level Of Consciousness Commands - 1c: Both Correct Best Gaze - 2: Normal Visual Luna - 3: No Visual Loss Facial Palsy - 4: Normal Motor Arm Right - 5: No Drift Motor Arm Left - 5: No Drift Motor Leg Right - 6: No Drift Motor Leg Left - 6: No Drift Limb Ataxia - 7: Absent Sensory - 8: Normal Best Language - 9: No Aphasia Dysarthia - 10: Normal Extinction And Inattention - 11: 0 Score Total Score: 0
[2025-04-21 20:25] LABS: Alanine Aminotransferase 8 U/L (0-33); Albumin Level 4.1 g/dL (3.5-5.2); Alkaline Phosphatase 102 U/L (35-105); Anion Gap 13.8 (5-19); Aspartate Amino Transferase 10 U/L (0-32); Blood Urea Nitrogen 13 mg/dL (8-23); Calcium 9.6 mg/dL (8.5-10.5); Carbon Dioxide 24 mmol/L (22-29); Chloride 99 mmol/L (98-107); Globulin 2.8 g/dL (1.3-4.6); Glucose 129 mg/dL (65-115); Magnesium 1.9 mg/dL (1.7-2.3); Osmolality Calculated 278 mOsm/kg (285-295); Potassium 3.8 mmol/L (3.5-5.1); Sodium 133 mmol/L (136-145); Total Protein 6.9 g/dL (6.6-8.7)
[2025-04-21 20:34] LABS: UA Slide Review UA Slide Review Perf
[2025-04-21 20:35] LABS: Alcohol Level < 10 mg/dL (0-10); Creatinine Clr Calc Pharmacy 53.3252
[2025-04-21 21:00] VITALS: BP 148/110; PULSE 64; O2SAT 97
[2025-04-21 21:30] VITALS: BP 178/92; PULSE 66; O2SAT 99
[2025-04-21 22:00] VITALS: BP 178/98; PULSE 63; O2SAT 96
[2025-04-21 22:41] VITALS: BP 171/116; PULSE 64; O2SAT 98
== END 2025-04-21 22:42 | disposition home or self-care (01) ==
PROVIDERS: Emergency Provider Emergency Medicine; PCP Family Medicine
DX: R55 Syncope and collapse (principal); Z79.02 Long term (current) use of antithrombotics/antiplatelets; Z79.82 Long term (current) use of aspirin; Z79.84 Long term (current) use of oral hypoglycemic drugs; Z72.0 Tobacco use; E78.5 Hyperlipidemia, unspecified; N18.9 Chronic kidney disease, unspecified
CPT/HCPCS: 36415; 36416; 70450; 80053; 80307; 81001; 82550; 82962; 83735; 85025; 93005; 99284; J7040